=== PATIENT | female | born 1970 | race Caucasian/White ===

== ENCOUNTER 2020-10-15 10:51 | Emergency (ER) | payer OTHER, SELFPAY ==
--- NOTE | ~2020-10-15 | XR_ITS ---
EXAMINATION: 1. RADIOGRAPHS RIGHT ANKLE 2. RADIOGRAPHS RIGHT FOOT CLINICAL INFORMATION: Rule out stress fracture COMPARISON: None TECHNIQUE: 3 views of the right ankle and 3 views of the right foot were obtained. FINDINGS: Visualized portion of the distal tibia and fibula demonstrate no fracture. The ankle mortise is maintained. No focal soft tissue swelling of the ankle. No gross ankle joint effusion. Bones of the midfoot are well aligned. No tarsal, metatarsal or phalangeal fracture. Prominent posterior and plantar calcaneal enthesophytes. XR/XR foot RT 2V IMPRESSION: No fracture of the right ankle or right foot.
--- NOTE | ~2020-10-15 | XR_ITS ---
EXAMINATION: 1. RADIOGRAPHS RIGHT ANKLE 2. RADIOGRAPHS RIGHT FOOT CLINICAL INFORMATION: Rule out stress fracture COMPARISON: None TECHNIQUE: 3 views of the right ankle and 3 views of the right foot were obtained. FINDINGS: Visualized portion of the distal tibia and fibula demonstrate no fracture. The ankle mortise is maintained. No focal soft tissue swelling of the ankle. No gross ankle joint effusion. Bones of the midfoot are well aligned. No tarsal, metatarsal or phalangeal fracture. Prominent posterior and plantar calcaneal enthesophytes. XR/XR ankle RT 2V IMPRESSION: No fracture of the right ankle or right foot.
--- NOTE | ~2020-10-15 | US_ITS ---
EXAMINATION: US VENOUS ULTRASOUND WITH DOPPLER LOWER EXTREMITY, RIGHT CLINICAL INFORMATION: Swelling and pain COMPARISON: None TECHNIQUE: Ultrasound of the deep veins is performed from the hip to the calf with compression sonography and color and pulse Doppler assessment. Spectral analysis with color-flow imaging is performed. FINDINGS: There is normal venous compression and respiratory variation and augmented flow. The visualized common femoral vein, superficial femoral vein, profunda femoral vein, popliteal vein, and the trifurcation region shows no evidence of deep venous thrombosis. There is no significant popliteal fossa cyst. US/US venous duplex LE RT IMPRESSION: No DVT demonstrated in the right lower extremity.
[2020-10-15 11:30] VITALS: BP 135/53; PULSE 86; RESP 16; TEMP 36.6; O2SAT 98; BMI 32.1
--- NOTE | 2020-10-15 11:40 | ED.LOWEXIN ---
HPI - Extremity Injury (Lower) General Chief Complaint: Extremity Injury, Lower Stated Complaint: leg/foot pain Time Seen by Provider: 10/15/20 11:30 Source: patient Mode of arrival: ambulatory Limitations: no limitations History of Present Illness HPI Narrative: 50-year-old female with a past will history of neuropathy who takes Topamax here with complaint of right lower extremity pain and swelling for 2 months. Patient tells me she has pain in the right foot which radiates up the ankle into the calf and knee and is worsened with weight-bearing and activity. No injury or trauma. She tells me she has been taking her medications as prescribed. She does have some paresthesias which she tells me is chronic for her secondary to neuropathy. Tried calling her primary care doctor but they were unable to see her. No warmth or fevers or chills. Patient does tell me that she has some swelling over the last 2 days which is worsened at the end of the day. No recent travel. No estrogen use. No history of DVTs or PEs. No family history of same. No SOB/CP Patient tells me that she has been seen by 2 neurologists and one Orthopedic. She tells me that she had testing by one of the neurologist that showed neuropathy although she does not know the cause. Related Data Previous Rx's Medication Instructions Recorded topiramate 100 mg tablet 100 mg PO BID #180 tab 07/23/20 gabapentin 300 mg capsule 300 mg PO BEDTIME 30 Days #30 cap 08/23/20 Allergies Allergy/AdvReac Type Severity Reaction Status Date / Time No Known Allergies Allergy Verified 08/23/20 16:32 [No Known Allergies*] Review of Systems Review of Systems: Yes all other systems are reviewed and are negative Constitutional: Constitutional: Reports no additional constitutional complaints, Denies body ache(s), Denies chills, Denies fever(s), Denies headache(s) and Denies weakness Eyes: Eyes: Reports no additional eye complaints and Denies change in vision ENT: Reports system reviewed and no additional complaints, except as documented, Denies dizziness, Denies headache(s), Denies nasal congestion, Denies nasal discharge and Denies neck pain Cardiovascular: Cardiovascular: Reports no additional cardiovascular complaints, Denies chest pain, Denies leg edema and Denies dyspnea Respiratory: Respiratory: Reports no additional respiratory complaints, Denies cough and Denies dyspnea Gastrointestinal: Gastrointestinal: Reports no additional gastrointestinal complaints, Denies abdominal pain, Denies diarrhea, Denies nausea and Denies vomiting Genitourinary: Genitourinary: Reports no additional female genitourinary complaints and Denies urinary incontinence Musculoskeletal: Musculoskeletal: Reports no additional musculoskeletal complaints, Denies back pain, Reports arthralgias, Denies joint swelling, Denies limited range of motion, Denies neck pain, Reports numbness and Reports tingling Integumentary/Breasts: Skin/Breast: Reports system reviewed and no additional complaints, except as docu and Denies rash Neurologic: Reports system reviewed and no additional complaints, except as documented, Denies Abnormal speech present, Denies dizziness, Denies headache(s), Reports numbness, Reports tingling and Denies weakness PMFSH Past Medical History Attestation statement: The following information was validated with the patient. Source: old records reviewed and nursing notes reviewed Medical History Neuropathy Surgical History History of surgery on wrist Family History Family History Mother Breast cancer Asthma Father No problems noted. Social History Social History Alcohol intake: current Alcohol intake frequency: a few times a week Alcohol type: beer and wine Smoking Status: Current every day smoker Cigarettes Per Day: 10 Smoked in Last 30 Days: Yes Use of substances other than those prescribed or required for medical reasons: No Advance Directives: No Advance Directives Information Provided: No Physical Exam Vital Signs: Vital Signs: Last Vital Signs Temp 97.8 F 10/15/20 11:30 Pulse 86 10/15/20 11:30 Resp 16 10/15/20 11:30 BP 135/53 L 10/15/20 11:30 Pulse Ox 98 10/15/20 11:30 Body Mass Index 32.1 Const: General: cooperative, healthy appearing, comfortable and no acute distress Orientation/consciousness: patient oriented x3 Limitations: no limitations HENMT: Head: Yes normal to inspection Ears: hearing grossly normal bilaterally General nose exam: Normal external nose present Face and sinus: Yes normal facial exam Mouth: Normal oral and palatal mucosa present Throat: Yes posterior oropharynx normal Eyes: General: appearance normal, both eyes and all related structures Pupils: Equal, round and reactive pupils present Neck: Neck: Yes normal visual inspection Chest: Chest palpation & inspection: normal inspection of the chest Resp: Effort & Inspection: normal respiratory effort Auscultation: clear to auscultation bilaterally Cardio: Rate: regular rate Rhythm: regular rhythm Peripheral pulses: Peripheral pulses 2+ throughout GI: Inspection: Yes normal to inspection Palpation (GI): Soft to palpation and nontender Auscultation: normal bowel sounds Back/Spine/Pelvis: Thoracic/Lumbar Spine: thoracic and lumbar spine normal to inspection Skin: General skin exam: no rashes or lesions noted Neuro: General: patient oriented x3, no focal motor deficits and normal sensation to monofilament Cranial nerves: Yes Equal, round and reactive pupils present Cognition (Neuro): normal cognition Speech: No Abnormal speech present Gait exam (Neuro): Normal gait present Motor exam (neuro): 5/5 motor strength present throughout Extrem: Other: Patient tells me she has tenderness over the entire foot, entire ankle and lower leg and is unable to point to 1 focal area that is painful. She has full range of motion of the foot, ankle, knee. She has no appreciable swelling, warmth, redness. 2+ distal pulses palpated. General: Yes normal to inspection Course Course Course Narrative: 50-year-old female here with right lower extremity pain/swelling with associated paresthesias x2 months. No injury or trauma. Will check x-ays, US. 1415-x-ray show no acute bony abnormality. Ultrasound negative for DVT. Discussed findings with the patient. She tells me that she was most concerned about a DVT. She tells me that she will follow-up with her primary care doctor about her chronic neuropathy. Reviewed worrisome signs and symptoms and when to return to the emergency department. Comfortable discharge home. MDM - Extremity Injury (Lower) MDM Narrative Medical decision making narrative: stress fx, dvt, neuropathy Medical Records Attestation: I reviewed the patient's medical records. Lab Data Attestation: I reviewed the patient's lab results. Imaging Data right foot/ankle xray: Attestation: I personally reviewed and interpreted this imaging study as follows: Radiologist's impression: EXAMINATION: 1. RADIOGRAPHS RIGHT ANKLE 2. RADIOGRAPHS RIGHT FOOT CLINICAL INFORMATION: Rule out stress fracture COMPARISON: None TECHNIQUE: 3 views of the right ankle and 3 views of the right foot were obtained. FINDINGS: Visualized portion of the distal tibia and fibula demonstrate no fracture. The ankle mortise is maintained. No focal soft tissue swelling of the ankle. No gross ankle joint effusion. Bones of the midfoot are well aligned. No tarsal, metatarsal or phalangeal fracture. Prominent posterior and plantar calcaneal enthesophytes. XR/XR ankle RT 2V IMPRESSION: No fracture of the right ankle or right foot. Venous US: Attestation: I personally reviewed and interpreted this imaging study as follows: Radiologist's impression: [address] [id number] ReportSigned Patient: Dee Tyler LMR#: [id number]: 1970Acct:[id number]/Sex: 50 / FADM Date: 10/15/20Loc: [email or web address] Dr: Ordering Physician: ARLEN CARNES NP Date of Service: 10/15/20 Procedure(s): US venous duplex LE RT Accession Number(s): [id number] cc: ARLEN CARNES NP~ EXAMINATION: US VENOUS ULTRASOUND WITH DOPPLER LOWER EXTREMITY, RIGHT CLINICAL INFORMATION: Swelling and pain COMPARISON: None TECHNIQUE: Ultrasound of the deep veins is performed from the hip to the calf with compression sonography and color and pulse Doppler assessment. Spectral analysis with color-flow imaging is performed. FINDINGS: There is normal venous compression and respiratory variation and augmented flow. The visualized common femoral vein, superficial femoral vein, profunda femoral vein, popliteal vein, and the trifurcation region shows no evidence of deep venous thrombosis. There is no significant popliteal fossa cyst. US/US venous duplex LE RT IMPRESSION: No DVT demonstrated in the right lower extremity. Discharge Plan Discharge Clinical Impression: Neuropathy Patient Disposition: Home, Self-Care Instructions: Peripheral Neuropathy (ED) Additional Instructions: Your x-ray showed no acute finding. Your ultrasound was negative for DVT. Prescriptions: No Action topiramate 100 mg tablet 100 mg PO BID Qty: 180 RF: 0 gabapentin 300 mg capsule 300 mg PO BEDTIME 30 Days Qty: 30 RF: 0 Referrals: Po,Aldo Huggins MD [Primary Care Provider] - 10 days Interventions: ED Discharge Assessment Last Done: 10/15/20 13:23 Discharge Date/Time: 10/15/20 13:23
== END 2020-10-15 13:23 | disposition home or self-care (01) ==
PROVIDERS: Emergency Provider Emergency Medicine; PCP Internal Medicine
DX: G62.9 Polyneuropathy, unspecified (principal); R60.0 Localized edema; F17.210 Nicotine dependence, cigarettes, uncomplicated; Z71.6 Tobacco abuse counseling; Z79.899 Other long term (current) drug therapy
CPT/HCPCS: 73600; 73620; 93971; 99283

== ENCOUNTER 2020-11-27 11:57 | Outpatient (REF) | payer OTHER, SELFPAY ==
--- NOTE | ~2020-11-27 | XR_ITS ---
EXAMINATION: RIGHT KNEE. RIGHT HIP. CLINICAL INFORMATION: Soft tissue disorders. Pain. COMPARISON: None TECHNIQUE: Right hip 2 views. Right knee 4 views. FINDINGS: RIGHT KNEE: There is loss of medial and patellofemoral compartment joint space. There is small superior patellar spurring. No bony erosive changes seen. No abnormal suprapatellar joint effusion. Small anterior tibial tubercle spur is noted. The soft tissues appear normal. RIGHT HIP: The joint space is maintained normal. There is small right lateral acetabular spur. No acute fracture or dislocation seen. No bony erosive changes. The soft tissues are normal. XR/XR hip RT min 2V IMPRESSION: Mild degenerative changes medial compartment with minimal anterior superior patellar enthesophyte. No joint effusion or bony erosive changes. Unremarkable right hip exam.
--- NOTE | ~2020-11-27 | XR_ITS ---
EXAMINATION: RIGHT KNEE. RIGHT HIP. CLINICAL INFORMATION: Soft tissue disorders. Pain. COMPARISON: None TECHNIQUE: Right hip 2 views. Right knee 4 views. FINDINGS: RIGHT KNEE: There is loss of medial and patellofemoral compartment joint space. There is small superior patellar spurring. No bony erosive changes seen. No abnormal suprapatellar joint effusion. Small anterior tibial tubercle spur is noted. The soft tissues appear normal. RIGHT HIP: The joint space is maintained normal. There is small right lateral acetabular spur. No acute fracture or dislocation seen. No bony erosive changes. The soft tissues are normal. XR/XR knee RT 4V IMPRESSION: Mild degenerative changes medial compartment with minimal anterior superior patellar enthesophyte. No joint effusion or bony erosive changes. Unremarkable right hip exam.
[2020-11-27 13:59] LABS: MANUAL DIFF FLAG NO
[2020-11-27 14:04] LABS: Basophils Absolute Auto 0.1 X10*3/uL (0.0-0.2); Basophils Percent Auto 0.9 % (0-2); Eosinophils Absolute Auto 0.2 X10*3/uL (0.0-0.4); Eosinophils Percent Auto 2.7 % (0-4); Hematocrit 40.2 % (37-47); Imm Gran Abs Auto 0.03 X10*3/uL (0.00-0.03); Imm Gran Pct Auto 0.3 % (0.0-0.4); Lymphocytes Absolute Auto 2.4 X10*3/uL (1.2-4.9); Lymphocytes Percent Auto 27.4 % (20-40); Mean Corpuscular HGB Conc 32.3 g/dl (31.0-35.0); Mean Corpuscular Hemoglobin 30.1 pg (27.0-33.0); Mean Corpuscular Volume 93.1 fL (80-98); Mean Platelet Volume 10.8 fL (9.4-12.3); Monocytes Absolute Auto 0.4 X10*3/uL (0.1-1.2); Monocytes Percent Auto 4.5 % (2-11); Neutrophils Absolute Auto 5.5 X10*3/uL (2.0-8.3); Neutrophils Percent Auto 64.2 % (45-73); Platelet Count 279 X10*3/uL (160-400); Red Blood Count 4.32 X10*6/uL (4.20-5.50); Red Cell Distribution Width 13.3 % (11.0-16.0); White Blood Count 8.6 X10*3/uL (4.8-10.8)
[2020-11-27 14:18] LABS: D Dimer 206 NG/ML
[2020-11-27 14:25] LABS: B Type Natriuretic Peptide 13 pg/mL (<100)
[2020-11-27 14:36] LABS: Anion Gap 13 (12-20); Blood Urea Nitrogen 8 mg/dL (9-16); C Reactive Protein 0.19 mg/dL (< or = 0.50); Calcium 9.4 mg/dL (8.4-10.2); Carbon Dioxide 29 mmol/L (22-29); Chloride 107 mmol/L (96-108); Estimated Glomerular Filt Rate > 60; Glucose Random 87 mg/dL (60-115); Sodium 145 mmol/L (135-145)
[2020-11-27 14:43] LABS: Erythrocyte Sedimentation Rate 7 MM/HR (0-20)
[2020-11-27 15:36] LABS: Folate 8.1 ng/mL (> or = 4.0); Vitamin B12 989 pg/mL (200-900)
[2020-11-28 08:41] LABS: Lyme Abs Screen <0.90 index
== END 2020-11-27 11:58 | disposition home or self-care (01) ==
LOC: HO.HMGCLDS 11:57
PROVIDERS: PCP Internal Medicine; Visit Provider Nurse Practitioner Family
DX: M79.89 Other specified soft tissue disorders (principal)
CPT/HCPCS: 36415; 73502; 73564; 80048; 82607; 82746; 83880; 85025; 85379; 85652; 86140; 86617; 86618

== ENCOUNTER → 2021-02-03 10:32 | Outpatient (BNVA) | payer OTHER, SELFPAY | PROVIDERS: Visit Provider Orthopaedic Surgery ==

== ENCOUNTER 2021-02-10 19:10 | Outpatient (REF) | payer OTHER, SELFPAY ==
--- NOTE | ~2021-02-10 | MR_ITS ---
EXAMINATION: MR KNEE WITHOUT CONTRAST, RIGHT CLINICAL INFORMATION: Unspecified internal derangement of right knee. Patient reports right knee pain for 8 months with no recent injury or previous surgery. COMPARISON: XR right knee 11/27/2020. MR right knee 12/12/2013. TECHNIQUE: MRI of the knee without contrast was performed using routine sequences on a high-field scanner. FINDINGS: MENISCI: Medial Meniscus: There is degeneration and eygvvxcp-bi-qkny-grade partial tearing of the posterior root of the medial meniscus. There is minimal medial extrusion at the junction of the body and anterior horn. There is some thinning of the free edge of the posterior horn. On the coronal images (series 5, image 12-13), there is a suggestion of a shallow inner margin undersurface horizontal tear as well as a small free edge tear. Lateral Meniscus: Intact LIGAMENTS: Cruciate: Intact Collateral: Intact EXTENSOR MECHANISM: Intact ARTICULAR CARTILAGE/BONE: Patellofemoral Compartment: There is focal cartilage surface irregularity and thinning at the junction of the apex and medial facet of the patella. There is patchy cartilage irregularity and thinning in the femoral trochlea ranging from ajlv-pj-xufr-grade, most prominent at the junction of the central and medial femoral trochlea. There is minor underlying bone marrow edema. There are tiny marginal osteophytes. Medial Compartment: There is fjbt-lk-sjtenpbi cartilage irregularity and thinning in the weightbearing medial compartment. There is patchy underlying bone marrow edema, most prominent in the anterior aspect of the medial tibial plateau. There are tiny marginal osteophytes. Lateral Compartment: Normal JOINT FLUID AND BURSAE: Xkfps-uv-wvszwead joint effusion and small Man's cyst. MR/MR knee RT wo con IMPRESSION: 1. Degeneration and fmkjlxnb-mb-fadd-grade partial tearing of the posterior root of the medial meniscus. Focal inner margin undersurface and free-edge tear of the posterior horn. 2. Mild arthrosis in the apex and adjacent medial facet of the patella. Overall moderate arthrosis in the femoral trochlea. 3. Efry-xv-jctlluwy arthrosis in the weightbearing medial compartment. 4. Oviam-ap-lxguwozu joint effusion and small Man's cyst.
== END 2021-02-10 19:11 | disposition home or self-care (01) ==
LOC: HO.MRI 19:10
PROVIDERS: Visit Provider Orthopaedic Surgery
DX: M23.91 Unspecified internal derangement of right knee (principal)
CPT/HCPCS: 73721

== ENCOUNTER → 2021-02-13 12:38 | Outpatient (BNVA) | payer OTHER, SELFPAY | PROVIDERS: PCP Internal Medicine; Visit Provider Orthopaedic Surgery | DX: M17.31 Unilateral post-traumatic osteoarthritis, right knee (principal); M84.40XA Pathological fracture, unspecified site, initial encounter for fracture | CPT/HCPCS: 20610; J1100 ==

== ENCOUNTER → 2021-03-13 12:59 | Outpatient (BNVA) | payer OTHER, SELFPAY | PROVIDERS: PCP Internal Medicine; Visit Provider Orthopaedic Surgery ==

== ENCOUNTER 2021-04-18 14:30 | Outpatient (REF) | payer OTHER, SELFPAY ==
--- NOTE | ~2021-04-18 | MM_ITS ---
EXAMINATION: MM SCREENING DIGITAL BREAST TOMOSYNTHESIS, BILATERAL CLINICAL INFORMATION: Screening. Asymptomatic. The lifetime risk of breast cancer based on the Tyrer-Cuzick Model is 16%. COMPARISON: Mammography: 12/14/2018, 02/24/2017, 01/10/2016, 08/06/2014 TECHNIQUE: Digital breast tomosynthesis is performed in both the craniocaudal and mediolateral oblique views along with computer-aided detection (CAD). Synthesized 2D images are generated from the tomosynthesis. FINDINGS: There are scattered areas of fibroglandular density (ACR BI-RADS breast composition Category b). There are no significant masses, abnormal calcifications, or other abnormalities. Parenchymal pattern is similar to prior exams. No developing density. Axillary nodes without significant change. Skin contours are smooth. MM/MM tomosynthesis screening BI IMPRESSION: No mammographic evidence of malignancy. ASSESSMENT: BI-RADS 1: Negative RECOMMENDATION: Routine annual mammography screening. This patient's information was entered into a reminder system with a target due date for their next mammogram.
== END 2021-04-18 14:31 | disposition home or self-care (01) ==
LOC: HO.MAMMO 14:30
PROVIDERS: PCP Internal Medicine; Visit Provider Internal Medicine
DX: Z12.31 Encounter for screening mammogram for malignant neoplasm of breast (principal)
CPT/HCPCS: 77063; 77067

== ENCOUNTER 2021-05-19 15:10 | Emergency (ER) | payer OTHER, SELFPAY ==
--- NOTE | 2021-05-19 | ECG_ITS ---
Test Reason : abdominal pain Blood Pressure : / mmHG Vent. Rate : 081 BPM Atrial Rate : 081 BPM P-R Int : 168 ms QRS Dur : 084 ms QT Int : 380 ms P-R-T Axes : 072 040 062 degrees QTc Int : 441 ms Sinus rhythm with occasional Premature ventricular complexes Borderline ECG No previous ECGs available Referred By: Generic ED Physician Electronically Signed By:DIANA CHAN MD
--- NOTE | ~2021-05-19 | CT_ITS ---
EXAMINATION: CT ABDOMEN AND PELVIS WITHOUT CONTRAST CLINICAL INFORMATION: Left flank and left lower quadrant pain. COMPARISON: No similar priors. TECHNIQUE: Multidetector volumetric imaging was performed from the superior aspect of the liver through the pubic symphysis. Sagittal and coronal reformatted images were obtained on the technologist's workstation. This CT examination was performed using dose optimization techniques as appropriate, variously including the following: *Automated exposure control *Adjustment of mA and/or kV according to patient size (this includes techniques or standardized protocols for targeted exams where dose is matched to indication/reason for exam; i.e. extremities or head) *Use of iterative reconstruction technique DLP: 702 mGy-cm FINDINGS: LUNG BASES: Subsegmental atelectasis and/or parenchymal scarring in the right middle lobe, lingula and lung bases. No focal consolidation or pleural effusion. LIVER, GALLBLADDER, AND BILIARY TREE: The liver is normal in size, shape, and attenuation. No focal hepatic lesion or biliary ductal dilatation is present. The gallbladder is unremarkable with no evidence of radiopaque gallstones, gallbladder wall thickening, or obvious pericholecystic inflammatory changes. PANCREAS: Unremarkable. SPLEEN: Unremarkable. ADRENAL GLANDS: Unremarkable. KIDNEYS AND URETERS: The kidneys are normal in size, shape, and attenuation. No hydronephrosis, hydroureter, or calculi seen. No perinephric stranding. BLADDER: Unremarkable. GASTROINTESTINAL TRACT: The stomach and the small bowel are nondilated. Normal appendix. The distal colon is under distended, limiting assessment of wall thickening. There is fat stranding adjacent to the descending colon where there are a few diverticuli, likely related with mild acute diverticulitis. There is no bowel obstruction. There is no free air or drainable collection. ABDOMINAL WALL: Small fat-containing umbilical hernia. LYMPH NODES: No lymphadenopathy by size criteria. VASCULAR: Scattered atherosclerotic disease. The abdominal aorta is of normal diameter. PELVIC VISCERA: Calcifications in the right adnexa on images 66 and 67 of series 3 and in the right wall of the cervix on image 72 of series 3 of uncertain clinical significance. A few pelvic phleboliths are identified. OSSEOUS STRUCTURES: No acute or aggressive osseous abnormalities. Multilevel thoracolumbar spondylosis with prominent anterior osteophytes at L3-L4 and L4-L5. CT/CT abdomen pelvis wo con IMPRESSION: Mild pericolic inflammatory changes around the descending colon, raising the possibility of acute diverticulitis and less likely colitis given their association with diverticula and short segment of involvement. No evidence of perforation. No drainable collection. Calcific bodies in the right adnexa of uncertain significance. If indicated, consider further evaluation with a nonemergent pelvic ultrasound.
[2021-05-19 16:21] VITALS: BP 123/91; PULSE 80; RESP 18; TEMP 36.9; O2SAT 97; BMI 35.5
[2021-05-19 17:54] LABS: MANUAL DIFF FLAG NO
[2021-05-19 17:57] LABS: Basophils Absolute Auto 0.1 X10*3/uL (0.0-0.2); Basophils Percent Auto 0.9 % (0-2); Eosinophils Absolute Auto 0.3 X10*3/uL (0.0-0.4); Eosinophils Percent Auto 3.1 % (0-4); Hematocrit 44.2 % (37.0-47.0); Hemoglobin 14.4 g/dl (12.0-16.0); Imm Gran Abs Auto 0.02 X10*3/uL (0.00-0.03); Imm Gran Pct Auto 0.2 % (0.0-0.4); Lymphocytes Absolute Auto 3.1 X10*3/uL (1.2-4.9); Lymphocytes Percent Auto 34.9 % (20-40); Mean Corpuscular HGB Conc 32.6 g/dl (31.0-35.0); Mean Corpuscular Hemoglobin 30.1 pg (27.0-33.0); Mean Corpuscular Volume 92.3 fL (80.0-98.0); Mean Platelet Volume 10.3 fL (9.4-12.3); Monocytes Absolute Auto 0.6 X10*3/uL (0.1-1.2); Monocytes Percent Auto 6.8 % (2-11); Neutrophils Absolute Auto 4.8 x10*3/uL (2.0-8.3); Neutrophils Percent Auto 54.1 % (45-73); Platelet Count 304 X10*3/uL (160-400); Red Blood Count 4.79 X10*6/uL (4.20-5.50); Red Cell Distribution Width 13.2 % (11.0-16.0); White Blood Count 8.9 X10*3/uL (4.8-10.8)
[2021-05-19 18:20] LABS: Lipase 16 U/L (8-78)
[2021-05-19 18:21] LABS: Alanine Aminotransferase 17 U/L (0-31); Albumin Level 4.4 g/dL (3.5-5.0); Alkaline Phosphatase 120 U/L (39-117); Anion Gap 11 (12-20); Aspartate Amino Transferase 18 U/L (5-31); Bilirubin Total 0.4 mg/dL (0.0-1.0); Blood Urea Nitrogen 6 mg/dL (9-16); Calcium 9.5 mg/dL (8.4-10.2); Carbon Dioxide 30 mmol/L (22-29); Chloride 107 mmol/L (96-108); Creatinine Clr Calc Pharmacy 92.9; Estimated Glomerular Filt Rate > 60; Glucose Random 81 mg/dL (60-115); Potassium 4.4 mmol/L (3.3-5.1); Sodium 144 mmol/L (135-145); Total Protein 6.8 g/dL (6.5-8.0)
[2021-05-19 18:21] LABS: Appearance Urine HAZY; Color Urine STRAW; Glucose Urine UA NEG (NEG); Leukocyte Esterase Urine TRACE (NEG); Nitrite Urine NEG (NEG); Specific Gravity - Urine <= 1.005 (1.005-1.025); UACC Culture Trigger YES; Urine Blood NEG (NEG); Urine Ketones NEG (NEG); Urine Protein NEG (NEG-TRACE)
[2021-05-19 19:19] LABS: Bacteria Urine 1+ /LPF; RBC Urine 0-2 /HPF (0); Squamous Epithelial Cell Urine 2+ /LPF
--- NOTE | 2021-05-19 20:24 | ED_ITS ---
HPI - Abdominal Pain General Chief Complaint: Abdominal Pain Stated Complaint: abd pain Time Seen by Provider: 05/19/21 20:23 Source: patient Mode of arrival: ambulatory Limitations: no limitations History of Present Illness HPI narrative: Patient with no significant past medical history complaining of pain in the left flank area radiating to left lower abdomen for last 1 week off and on no relation with positional movement no nausea no vomiting no diarrhea no blood in the urine no fever or chills patient never had similar pain in the past no history of kidney stones Related Data Home Medications Medication Instructions Recorded Confirmed ibuprofen 200 mg tablet (Advil) 200 mg PO Q6H PRN 03/13/21 03/13/21 Previous Rx's Medication Instructions Recorded ciprofloxacin HCl 500 mg tablet 500 mg PO BID #20 tab 05/19/21 (Cipro) metronidazole 500 mg tablet 500 mg PO BID 10 Days #20 tab 05/19/21 Allergies Allergy/AdvReac Type Severity Reaction Status Date / Time No Known Allergies Allergy Verified 05/19/21 16:27 [No Known Allergies*] Review of Systems Review of Systems Yes all other systems are reviewed and are negative Physical Exam Vital Signs: Vital Signs: Last Vital Signs Temp 98.4 F 05/19/21 16:21 Pulse 80 05/19/21 16:21 Resp 18 05/19/21 16:21 BP 123/91 H 05/19/21 16:21 Pulse Ox 97 05/19/21 16:21 Body Mass Index 35.5 Appearance: Alert. Oriented X3. No acute distress. Eyes: No pallor or icterus ENT: Pharynx normal. Oral Mucosa moist Neck: Normal inspection. Neck supple. CVS: Normal heart rate and rhythm. Pulses normal. Respiratory: No respiratory distress. Equal air entry bilateral, no wheezing/rales/rhonchi Abdomen: Soft , deep tenderness left lower quadrant no rebound tenderness or guarding Bowel sounds are present, no mass palpable, mild left CVA tenderness Skin: Skin warm and dry. Normal skin color. Normal skin turgor. Extremities: No lower extremity edema. No calf tenderness Neuro: Oriented X 3 MDM - Abdominal Pain MDM Narrative Medical decision making narrative: Patient with uncomplicated diverticulitis with normal WBC count urine negative no kidney stone with discharge patient home on p.o. antibiotics Cipro and Flagyl Lab Data Attestation: I reviewed the patient's lab results. Result diagrams: 05/19/21 17:29 05/19/21 17:29 Labs: Lab Results 05/19/21 05/19/21 05/19/21 Range/Units 17:29 17:29 17:29 WBC 8.9 (4.8-10.8) X10*3/uL RBC 4.79 (4.20-5.50) X10*6/uL Hgb 14.4 (12.0-16.0) g/dl Hct 44.2 (37.0-47.0) % MCV 92.3 (80.0-98.0) fL MCH 30.1 (27.0-33.0) pg MCHC 32.6 (31.0-35.0) g/dl RDW 13.2 (11.0-16.0) % Plt Count 304 (160-400) X10*3/uL MPV 10.3 (9.4-12.3) fL Immature Gran % (Auto) 0.2 (0.0-0.4) % Neut % (Auto) 54.1 (45-73) % Lymph % (Auto) 34.9 (20-40) % [place] % (Auto) 6.8 (2-11) % Eos % (Auto) 3.1 (0-4) % Baso % (Auto) 0.9 (0-2) % Lymph # (Auto) 3.1 (1.2-4.9) X10*3/uL [place] # (Auto) 0.6 (0.1-1.2) X10*3/uL Eos # (Auto) 0.3 (0.0-0.4) X10*3/uL Baso # (Auto) 0.1 (0.0-0.2) X10*3/uL Abs Immat Gran (auto) 0.02 (0.00-0.03) X10*3/uL Absolute Neuts (auto) 4.8 (2.0-8.3) x10*3/uL Absolute Nucleated RBC 0.000 (0.0-0.012) X10*3/uL Nucleated RBC % (auto) 0.0 (0.0-0.2) /100WBC Sodium 144 (135-145) mmol/L Potassium 4.4 (3.3-5.1) mmol/L Chloride 107 (96-108) mmol/L Carbon Dioxide 30 H (22-29) mmol/L Anion Gap 11 L (12-20) BUN 6 L (9-16) mg/dL Creatinine 0.71 (0.5-1.4) mg/dL Estim Creat Clear Calc 92.9 Estimated GFR > 60 Random Glucose 81 (60-115) mg/dL Calcium 9.5 (8.4-10.2) mg/dL Total Bilirubin 0.4 (0.0-1.0) mg/dL AST 18 (5-31) U/L ALT 17 (0-31) U/L Alkaline Phosphatase 120 H (39-117) U/L Total Protein 6.8 (6.5-8.0) g/dL Albumin 4.4 (3.5-5.0) g/dL Lipase 16 (8-78) U/L Urine Color Urine Appearance Urine pH (5.0-8.0) Ur Specific [place] (1.005-1.025) Urine Protein (NEG-TRACE) MG/DL Urine Glucose (UA) (NEG) MG/DL Urine Ketones (NEG) MG/DL Urine Blood (NEG) Urine Nitrite (NEG) Ur Leukocyte Esterase (NEG) Urine RBC (0) /HPF Urine WBC (0-4) /HPF Ur Squamous Epith Cells /LPF Urine Bacteria /LPF 05/19/21 Range/Units 17:33 WBC (4.8-10.8) X10*3/uL RBC (4.20-5.50) X10*6/uL Hgb (12.0-16.0) g/dl Hct (37.0-47.0) % MCV (80.0-98.0) fL MCH (27.0-33.0) pg MCHC (31.0-35.0) g/dl RDW (11.0-16.0) % Plt Count (160-400) X10*3/uL MPV (9.4-12.3) fL Immature Gran % (Auto) (0.0-0.4) % Neut % (Auto) (45-73) % Lymph % (Auto) (20-40) % [place] % (Auto) (2-11) % Eos % (Auto) (0-4) % Baso % (Auto) (0-2) % Lymph # (Auto) (1.2-4.9) X10*3/uL [place] # (Auto) (0.1-1.2) X10*3/uL Eos # (Auto) (0.0-0.4) X10*3/uL Baso # (Auto) (0.0-0.2) X10*3/uL Abs Immat Gran (auto) (0.00-0.03) X10*3/uL Absolute Neuts (auto) (2.0-8.3) x10*3/uL Absolute Nucleated RBC (0.0-0.012) X10*3/uL Nucleated RBC % (auto) (0.0-0.2) /100WBC Sodium (135-145) mmol/L Potassium (3.3-5.1) mmol/L Chloride (96-108) mmol/L Carbon Dioxide (22-29) mmol/L Anion Gap (12-20) BUN (9-16) mg/dL Creatinine (0.5-1.4) mg/dL Estim Creat Clear Calc Estimated GFR Random Glucose (60-115) mg/dL Calcium (8.4-10.2) mg/dL Total Bilirubin (0.0-1.0) mg/dL AST (5-31) U/L ALT (0-31) U/L Alkaline Phosphatase (39-117) U/L Total Protein (6.5-8.0) g/dL Albumin (3.5-5.0) g/dL Lipase (8-78) U/L Urine Color STRAW Urine Appearance HAZY Urine pH 6.0 (5.0-8.0) Ur Specific [place] <= 1.005 (1.005-1.025) Urine Protein NEG (NEG-TRACE) MG/DL Urine Glucose (UA) NEG (NEG) MG/DL Urine Ketones NEG (NEG) MG/DL Urine Blood NEG (NEG) Urine Nitrite NEG (NEG) Ur Leukocyte Esterase TRACE H (NEG) Urine RBC 0-2 (0) /HPF Urine WBC 1-4 (0-4) /HPF Ur Squamous Epith Cells 2+ /LPF Urine Bacteria 1+ /LPF Discharge Plan Discharge Clinical Impression: Acute diverticulitis Patient Disposition: [facility] Instructions: Diverticulitis (ED) Additional Instructions: Have clear liquids advanced as tolerated Take antibiotic as prescribed Report to the ER if increased pain/fever/vomiting Prescriptions: New ciprofloxacin HCl [Cipro] 500 mg tablet 500 mg PO BID Qty: 20 RF: 0 metronidazole 500 mg tablet 500 mg PO BID 10 Days Qty: 20 RF: 0 No Action ibuprofen [Advil] 200 mg tablet 200 mg PO Q6H PRNRF: 0 Interventions: ED Discharge Assessment Last Done: 05/19/21 22:31 Discharge Date/Time: 05/19/21 22:31 [facility] Past Medical History Medical History Clostridium difficile diarrhea Degenerative disc disease at L5-S1 level Neuropathy Obesity (BMI 30-39.9) Tinnitus Tobacco abuse Vitamin D deficiency Surgical History H/O hand surgery Family History Family History Mother Breast cancer Asthma Father No problems noted. Maternal Aunt Colon cancer Brother Schizophrenia Social History Social History Housing: House Alcohol intake: current Alcohol intake frequency: a few times a week Alcohol type: beer and wine Patient Tobacco Use Status: Current everyday Tobacco user Tobacco use type: Cigarette Cigarette Packs Per Day: 0.5 Cigarettes Per Day: 10 Years Smoked: not ready to stop 03/2021 e-Cigarette/Vaping Use: Never Used Second Hand Smoke Exposure: Yes Advance Directives: No Patient : No service: No Current occupational status: employed Current occupation: right handed[employer]
--- NOTE | 2021-05-19 21:02 | PC.NURSE ---
pt in no obvious distress. pt has tender l side abd with no distention or discoloration. no abd guarding or facial grimace. pt refuses VS at this time. awaiting ct report. pt also refuses analgesia or anti emetic at this time.
--- NOTE | 2021-05-19 22:28 | PC.NURSE ---
pt was made aware of her diagnosis by md lewis, pt was not in tx area or mwr at time of discharge
== END 2021-05-19 22:31 | disposition left against medical advice (07) ==
PROVIDERS: Emergency Provider Internal Medicine; PCP Internal Medicine
DX: K57.32 Diverticulitis of large intestine without perforation or abscess without bleeding (principal); R10.32 Left lower quadrant pain; Z79.899 Other long term (current) drug therapy
CPT/HCPCS: 36415; 74176; 80053; 81001; 83690; 85025; 87086; 93005; 99283; 99284

== ENCOUNTER 2021-09-30 13:59 | Outpatient (REF) | payer OTHER, SELFPAY ==
[2021-09-30 14:11] LABS: MANUAL DIFF FLAG NO
[2021-09-30 14:24] LABS: Basophils Absolute Auto 0.1 X10*3/uL (0.0-0.2); Basophils Percent Auto 1.1 % (0-2); Eosinophils Absolute Auto 0.2 X10*3/uL (0.0-0.4); Eosinophils Percent Auto 2.3 % (0-4); Hematocrit 46.6 % (37.0-47.0); Hemoglobin 15.3 g/dl (12.0-16.0); Imm Gran Abs Auto 0.02 X10*3/uL (0.00-0.03); Imm Gran Pct Auto 0.3 % (0.0-0.4); Lymphocytes Absolute Auto 2.6 X10*3/uL (1.2-4.9); Lymphocytes Percent Auto 36.7 % (20-40); Mean Corpuscular HGB Conc 32.8 g/dl (31.0-35.0); Mean Corpuscular Hemoglobin 30.4 pg (27.0-33.0); Mean Corpuscular Volume 92.5 fL (80.0-98.0); Monocytes Absolute Auto 0.3 X10*3/uL (0.1-1.2); Monocytes Percent Auto 4.8 % (2-11); Neutrophils Absolute Auto 3.9 x10*3/uL (2.0-8.3); Neutrophils Percent Auto 54.8 % (45-73); Platelet Count 260 X10*3/uL (160-400); Red Blood Count 5.04 X10*6/uL (4.20-5.50); Red Cell Distribution Width 13.6 % (11.0-16.0)
[2021-09-30 14:58] LABS: Alanine Aminotransferase 15 U/L (0-31); Albumin Level 4.4 g/dL (3.5-5.0); Alkaline Phosphatase 122 U/L (39-117); Anion Gap 13 (12-20); Aspartate Amino Transferase 19 U/L (5-31); Bilirubin Total 0.6 mg/dL (0.0-1.0); Blood Urea Nitrogen 6 mg/dL (9-16); C Reactive Protein 0.25 mg/dL (< or = 0.50); Calcium 9.8 mg/dL (8.4-10.2); Carbon Dioxide 30 mmol/L (22-29); Chloride 104 mmol/L (96-108); Estimated Glomerular Filt Rate > 60; Glucose Random 99 mg/dL (60-115); Lipase 18 U/L (8-78); Potassium 4.4 mmol/L (3.3-5.1); Sodium 143 mmol/L (135-145)
== END 2021-09-30 14:00 | disposition home or self-care (01) ==
LOC: HO.LAB 13:59
PROVIDERS: PCP Internal Medicine; Visit Provider Nurse Practitioner Family
DX: R10.9 Unspecified abdominal pain (principal); I10 Essential (primary) hypertension; M54.9 Dorsalgia, unspecified
CPT/HCPCS: 36415; 80053; 83690; 85025; 86140; 87086

== ENCOUNTER 2021-10-12 05:45 | Emergency (ER) | payer OTHER, SELFPAY ==
--- NOTE | ~2021-10-12 | CT_ITS ---
EXAMINATION: CT ABDOMEN AND PELVIS WITHOUT CONTRAST CLINICAL INFORMATION: Left-sided abdominal pain. History of diverticulitis. COMPARISON: CT abdomen pelvis 05/19/2021 TECHNIQUE: Multidetector volumetric imaging was performed from the superior aspect of the liver through the pubic symphysis. Sagittal and coronal reformatted images were obtained on the technologist's workstation. This CT examination was performed using dose optimization techniques as appropriate, variously including the following: *Automated exposure control *Adjustment of mA and/or kV according to patient size (this includes techniques or standardized protocols for targeted exams where dose is matched to indication/reason for exam; i.e. extremities or head) *Use of iterative reconstruction technique DLP: 739 mGy-cm FINDINGS: Evaluation of visualized lung bases is suboptimal given respiratory motion artifact, however, no gross lobar consolidation is appreciated. The liver demonstrates normal size, contour and attenuation. The gallbladder is normal in appearance. The pancreas, spleen and adrenal glands are unremarkable. Symmetrically sized kidneys. No renal calculi or hydronephrosis bilaterally. Normal caliber loops of small and large bowel. Normal appendix. Mild colonic diverticulosis. There is a subtle area of mesenteric stranding abutting the descending colon, in a similar location to which was visualized and May 2021. No intra-abdominal abscess identified. Normal caliber abdominal aorta. No gross retroperitoneal lymphadenopathy. Tiny fat-containing umbilical hernia. The bladder is normal in size. Unremarkable CT appearance of the uterus. Similar small calcifications along the right cervix/right adnexal region, nonspecific. No gross free pelvic fluid. No inguinal lymphadenopathy. Mild to moderate degenerative changes of the spine. CT/CT abdomen pelvis wo con IMPRESSION: -Mild colonic diverticulosis with a subtle area of mesenteric stranding again identified abutting the descending colon. This may represent chronic changes, however, in this setting of left-sided abdominal pain, very mild active diverticulitis is also within the differential. Clinical correlation is recommended. Fleischner guidelines were followed.
[2021-10-12 05:57] VITALS: BP 145/83; PULSE 93; RESP 15; TEMP 36.1; O2SAT 94; BMI 34.7
--- NOTE | 2021-10-12 06:49 | ED_ITS ---
HPI - Abdominal Pain General Chief Complaint: Abdominal Pain Stated Complaint: Abd pain Time Seen by Provider: 10/12/21 06:48 Source: patient Mode of arrival: ambulatory Limitations: no limitations History of Present Illness HPI narrative: 51 years old female came in for evaluation of abdominal pain. Abdominal pain started 10 days ago was seen and evaluated by her PCP, patient had a history of diverticulitis and symptoms was mimic her presentation with diverticulitis patient was treated with Cipro and Flagyl for 10 days, was a partial improvement, patient woke up last night with severe diffuse abdominal pain that is constant, severe 7/10, described as diffuse dull aching pain, associated with nausea but no vomiting, no bowel movement for the past 2 days, no fever or chills. No relieving factor, no aggravating factor. No bloody urine, no dysuria, no frequency urination. No vaginal discharge or bleeding. Never had history of intra-abdominal surgery. Related Data Home Medications Medication Instructions Recorded Confirmed ibuprofen 200 mg tablet (Advil) 200 mg PO Q6H PRN 03/13/21 09/30/21 Previous Rx's Medication Instructions Recorded ciprofloxacin HCl 500 mg tablet 500 mg PO BID #20 tab 09/30/21 metronidazole 500 mg tablet 500 mg PO BID 10 Days #20 tab 09/30/21 cyclobenzaprine 5 mg tablet 5 mg PO BEDTIME PRN #10 tab 10/03/21 nystatin 100,000 unit/mL oral 4 ml PO QID 7 Days #112 ml 10/08/21 suspension Allergies Allergy/AdvReac Type Severity Reaction Status Date / Time No Known Allergies Allergy Verified 09/30/21 13:14 [No Known Allergies*] Review of Systems Review of Systems All other systems are reviewed and are negative Constitutional: Reports as per HPI and Reports no additional constitutional complaints Eyes: Reports as per HPI and Reports no additional eye complaints Reports system reviewed and no additional complaints, except as documented Cardiovascular: Reports as per HPI and Reports no additional cardiovascular complaints Respiratory: Reports as per HPI and Reports no additional respiratory complaints Gastrointestinal: Reports as per HPI and Reports no additional gastrointestinal complaints Genitourinary: Reports no additional female genitourinary complaints Musculoskeletal: Reports no additional musculoskeletal complaints Skin/Breast: Reports system reviewed and no additional complaints, except as docu Psychiatric: Reports no additional psychiatric complaints Endocrine: Reports no additional endocrine complaints Hematologic/Lymphatic: Reports no additional hematologic/lymphatic complaints Allergic/Immunologic: Reports no additional allergic/immunologic complaints Reports system reviewed and no additional complaints, except as documented and Reports Abnormal speech present [facility] Past Medical History Medical History Clostridium difficile diarrhea Degenerative disc disease at L5-S1 level Neuropathy Obesity (BMI 30-39.9) Tinnitus Tobacco abuse Vitamin D deficiency Surgical History H/O hand surgery Family History Family History Mother Breast cancer Asthma Father No problems noted. Maternal Aunt Colon cancer Brother Schizophrenia Social History Social History Housing: House Alcohol intake: current Alcohol intake frequency: a few times a week Alcohol type: beer and wine Patient Tobacco Use Status: Current everyday Tobacco user Tobacco use type: Cigarette Cigarette Packs Per Day: 0.5 Cigarettes Per Day: 10 Years Smoked: not ready to stop 03/2021 e-Cigarette/Vaping Use: Never Used Second Hand Smoke Exposure: Yes Advance Directives: No Patient : No service: No Current occupational status: employed Current occupation: right handed/[employer] Home Cognitive needs: No Hearing needs: No Vision needs: Yes (glasses) Physical Exam ED Vital Signs: Vital Signs - 24 hr 10/12/21 05:57 Temperature 97 F Pulse Rate 93 Respiratory Rate 15 Blood Pressure 145/83 H Pulse Oximetry 94 BMI result Body Mass Index 34.7 Vital signs have been reviewed as appeared to be correct. Blood pressure normal. Heart rate normal. Respiration rate normal. Temperature normal. Oxygen saturation normal. Appearance: Alert. Oriented X3. No acute distress. Head: Normal external exam. Normocephalic. Atraumatic. No Alejandra signs noted. No raccoon eyes noted Eyes: PERRLA. EOMI. Conjunctiva and sclera normal. Eyelids normal. ENT: TM's Normal. Pharynx normal. Uvula midline. Moist mucous membranes. No trismus noted. No drooling noted. No muffled voice noted. Neck: Normal inspection. Neck supple. FROM. No adenopathy. Thyroid Normal. No meningeal signs. No neck mass noted. CVS: Normal heart rate and rhythm. Heart sound normal. No murmurs noted. Pulses normal throughout. Respiratory: No respiratory distress. Painless inspiration. Breath sounds dragan l. No wheezes/rales/rhonchi noted. Chest nontender. No accessory muscle usage noted or decreased air movement noted. Abdomen: Soft, mild diffuse abdominal tenderness, no guarding, no rebound tenderness, pain is more focal to the left lower quadrant area with no sign of peritoneal irritation. Bowel sounds normal in all 4 quadrants. No distention noted. No organomegaly noted. No visible injury noted. Back: No CVA tenderness. Full range of motion noted. Skin: Skin warm and dry. Normal skin color. Normal skin turgor. No rashes/lesions/lacerations noted. Extremities: No lower extremity edema. Extremities exhibit normal range of motion. Extremities nontender. Neuro: Oriented X 3. Cranial nerve exam: II-XII are grossly intact No motor deficit. No sensory deficit. Reflexes normal. Course Course Course Narrative: Assessment and plan. 51-year-old female came in with mild diffuse abdominal pain, normal white blood cells count, unremarkable metabolic panel, CT of the abdomen pelvis showed no acute pathology except subtle stranding that might be a very mild diverticulitis, patient is finishing a course of double antibiotic of Cipro/Flagyl. Patient was instructed for NSAIDs, restrict to diverticular food diet, follow-up with GI as an outpatient (patient never had colonoscopy in the past). MDM - Abdominal Pain Lab Data Attestation: I reviewed the patient's lab results. Result diagrams: 10/12/21 07:18 10/12/21 07:18 Labs: Lab Results 10/12/21 10/12/21 10/12/21 Range/Units 07:18 07:18 07:18 WBC 7.9 (4.8-10.8) X10*3/uL RBC 4.77 (4.20-5.50) X10*6/uL Hgb 14.6 (12.0-16.0) g/dl Hct 42.9 (37.0-47.0) % MCV 89.9 (80.0-98.0) fL MCH 30.6 (27.0-33.0) pg MCHC 34.0 (31.0-35.0) g/dl RDW 13.4 (11.0-16.0) % Plt Count 283 (160-400) X10*3/uL MPV 9.9 (9.4-12.3) fL Immature Gran % (Auto) 0.3 (0.0-0.4) % Neut % (Auto) 68.8 (45-73) % Lymph % (Auto) 22.7 (20-40) % Ocean % (Auto) 7.0 (2-11) % Eos % (Auto) 0.8 (0-4) % Baso % (Auto) 0.4 (0-2) % Lymph # (Auto) 1.8 (1.2-4.9) X10*3/uL Ocean # (Auto) 0.6 (0.1-1.2) X10*3/uL Eos # (Auto) 0.1 (0.0-0.4) X10*3/uL Baso # (Auto) 0.0 (0.0-0.2) X10*3/uL Abs Immat Gran (auto) 0.02 (0.00-0.03) X10*3/uL Absolute Neuts (auto) 5.4 (2.0-8.3) x10*3/uL Absolute Nucleated RBC 0.000 (0.0-0.012) X10*3/uL Nucleated RBC % (auto) 0.0 (0.0-0.2) /100WBC Sodium 139 (135-145) mmol/L Potassium 3.8 (3.3-5.1) mmol/L Chloride 106 (96-108) mmol/L Carbon Dioxide 26 (22-29) mmol/L Anion Gap 11 L (12-20) BUN 6 L (9-16) mg/dL Creatinine 0.65 (0.5-1.4) mg/dL Estim Creat Clear Calc 95.2 Estimated GFR > 60 Random Glucose 103 (60-115) mg/dL Calcium 9.4 (8.4-10.2) mg/dL Total Bilirubin 0.6 (0.0-1.0) mg/dL Direct Bilirubin 0.3 (0.0-0.5) mg/dL AST 17 (5-31) U/L ALT 27 (0-31) U/L Alkaline Phosphatase 99 (39-117) U/L Troponin I High Sens < 3.5 (<3.5-17.0) ng/L Total Protein 6.4 L (6.5-8.0) g/dL Albumin 4.1 (3.5-5.0) g/dL Lipase 17 (8-78) U/L Urine Color Urine Appearance Urine pH (5.0-8.0) Ur Specific [place] (1.005-1.025) Urine Protein (NEG-TRACE) MG/DL Urine Glucose (UA) (NEG) MG/DL Urine Ketones (NEG) MG/DL Urine Blood (NEG) Urine Nitrite (NEG) Ur Leukocyte Esterase (NEG) 10/12/21 Range/Units 07:34 WBC (4.8-10.8) X10*3/uL RBC (4.20-5.50) X10*6/uL Hgb (12.0-16.0) g/dl Hct (37.0-47.0) % MCV (80.0-98.0) fL MCH (27.0-33.0) pg MCHC (31.0-35.0) g/dl RDW (11.0-16.0) % Plt Count (160-400) X10*3/uL MPV (9.4-12.3) fL Immature Gran % (Auto) (0.0-0.4) % Neut % (Auto) (45-73) % Lymph % (Auto) (20-40) % Ocean % (Auto) (2-11) % Eos % (Auto) (0-4) % Baso % (Auto) (0-2) % Lymph # (Auto) (1.2-4.9) X10*3/uL Ocean # (Auto) (0.1-1.2) X10*3/uL Eos # (Auto) (0.0-0.4) X10*3/uL Baso # (Auto) (0.0-0.2) X10*3/uL Abs Immat Gran (auto) (0.00-0.03) X10*3/uL Absolute Neuts (auto) (2.0-8.3) x10*3/uL Absolute Nucleated RBC (0.0-0.012) X10*3/uL Nucleated RBC % (auto) (0.0-0.2) /100WBC Sodium (135-145) mmol/L Potassium (3.3-5.1) mmol/L Chloride (96-108) mmol/L Carbon Dioxide (22-29) mmol/L Anion Gap (12-20) BUN (9-16) mg/dL Creatinine (0.5-1.4) mg/dL Estim Creat Clear Calc Estimated GFR Random Glucose (60-115) mg/dL Calcium (8.4-10.2) mg/dL Total Bilirubin (0.0-1.0) mg/dL Direct Bilirubin (0.0-0.5) mg/dL AST (5-31) U/L ALT (0-31) U/L Alkaline Phosphatase (39-117) U/L Troponin I High Sens (<3.5-17.0) ng/L Total Protein (6.5-8.0) g/dL Albumin (3.5-5.0) g/dL Lipase (8-78) U/L Urine Color STRAW Urine Appearance HAZY Urine pH 6.0 (5.0-8.0) Ur Specific [place] <= 1.005 (1.005-1.025) Urine Protein NEG (NEG-TRACE) MG/DL Urine Glucose (UA) NEG (NEG) MG/DL Urine Ketones NEG (NEG) MG/DL Urine Blood NEG (NEG) Urine Nitrite NEG (NEG) Ur Leukocyte Esterase NEG (NEG) Imaging Data CT scan - abdomen: Attestation: I personally reviewed and interpreted this imaging study as follows: Radiologist's impression: Mild colonic diverticulosis with a subtle area of mesenteric stranding again identified abutting the descending colon. This may represent chronic changes, however, in this setting of left-sided abdominal pain, very mild active diverticulitis is also within the differential. Clinical correlation is recommended.? ? Discharge Plan Discharge Clinical Impression: Abdominal pain, History of diverticulitis Patient Disposition: Home, Self-Care Instructions: Acute Abdominal Pain (ED), Diverticulitis Diet (ED) Prescriptions: No Action ibuprofen [Advil] 200 mg tablet 200 mg PO Q6H PRN0RF ciprofloxacin HCl 500 mg tablet 500 mg PO BID Qty: 20 0RF metronidazole 500 mg tablet 500 mg PO BID 10 Days Qty: 20 0RF cyclobenzaprine 5 mg tablet 5 mg PO BEDTIME PRN (Reason: muscle spasm) Qty: 10 0RF nystatin 100,000 unit/mL suspension 4 ml PO QID 7 Days Qty: 112 0RF Rx Instructions: swish and swallow Referrals: Oj Russell MD [Physician] - 2 weeks Po,Aldo Huggins MD [Primary Care Provider] - 2 days
[2021-10-12 07:24] LABS: MANUAL DIFF FLAG NO
[2021-10-12 07:26] LABS: Basophils Percent Auto 0.4 % (0-2); Eosinophils Absolute Auto 0.1 X10*3/uL (0.0-0.4); Eosinophils Percent Auto 0.8 % (0-4); Hematocrit 42.9 % (37.0-47.0); Hemoglobin 14.6 g/dl (12.0-16.0); Imm Gran Abs Auto 0.02 X10*3/uL (0.00-0.03); Imm Gran Pct Auto 0.3 % (0.0-0.4); Lymphocytes Absolute Auto 1.8 X10*3/uL (1.2-4.9); Lymphocytes Percent Auto 22.7 % (20-40); Mean Corpuscular Hemoglobin 30.6 pg (27.0-33.0); Mean Corpuscular Volume 89.9 fL (80.0-98.0); Mean Platelet Volume 9.9 fL (9.4-12.3); Monocytes Absolute Auto 0.6 X10*3/uL (0.1-1.2); Neutrophils Absolute Auto 5.4 x10*3/uL (2.0-8.3); Neutrophils Percent Auto 68.8 % (45-73); Platelet Count 283 X10*3/uL (160-400); Red Blood Count 4.77 X10*6/uL (4.20-5.50); Red Cell Distribution Width 13.4 % (11.0-16.0); White Blood Count 7.9 X10*3/uL (4.8-10.8)
[2021-10-12] MEDS: 0.9 % Sodium Chloride 1,000 ML 999 ML IV (07:41)
[2021-10-12 07:44] LABS: Appearance Urine HAZY; Color Urine STRAW; Glucose Urine UA NEG (NEG); Leukocyte Esterase Urine NEG (NEG); Nitrite Urine NEG (NEG); Specific Gravity - Urine <= 1.005 (1.005-1.025); Urine Blood NEG (NEG); Urine Ketones NEG (NEG); Urine Protein NEG (NEG-TRACE)
[2021-10-12 07:45] LABS: Troponin-I High Sensitivity < 3.5 ng/L (<3.5-17.0)
[2021-10-12 08:14] LABS: Alanine Aminotransferase 27 U/L (0-31); Albumin Level 4.1 g/dL (3.5-5.0); Alkaline Phosphatase 99 U/L (39-117); Anion Gap 11 (12-20); Aspartate Amino Transferase 17 U/L (5-31); Bilirubin Direct 0.3 mg/dL (0.0-0.5); Bilirubin Total 0.6 mg/dL (0.0-1.0); Blood Urea Nitrogen 6 mg/dL (9-16); Calcium 9.4 mg/dL (8.4-10.2); Carbon Dioxide 26 mmol/L (22-29); Chloride 106 mmol/L (96-108); Creatinine Clr Calc Pharmacy 95.2; Estimated Glomerular Filt Rate > 60; Glucose Random 103 mg/dL (60-115); Lipase 17 U/L (8-78); Potassium 3.8 mmol/L (3.3-5.1); Sodium 139 mmol/L (135-145); Total Protein 6.4 g/dL (6.5-8.0)
== END 2021-10-12 09:37 | disposition home or self-care (01) ==
PROVIDERS: Emergency Provider Emergency Medicine; PCP Internal Medicine
DX: K57.30 Diverticulosis of large intestine without perforation or abscess without bleeding (principal); R10.9 Unspecified abdominal pain; F17.210 Nicotine dependence, cigarettes, uncomplicated; Z79.899 Other long term (current) drug therapy; Z71.6 Tobacco abuse counseling
CPT/HCPCS: 36415; 74176; 80048; 80076; 81003; 83690; 84484; 85025; 99283

== ENCOUNTER 2021-10-12 20:28 | Inpatient (IN) | payer OTHER, SELFPAY ==
[2021-10-12 22:01] VITALS: BP 129/64; PULSE 92; RESP 16; TEMP 36.9; O2SAT 94; BMI 34.7
[2021-10-13] VITALS (7 sets, daily range): BP systolic 91–140; BP diastolic 49–71; PULSE 77–150; RESP 16–19; TEMP 36.4–37.2; O2SAT 89–99
--- NOTE | 2021-10-13 01:03 | ED.ABDPAIN ---
HPI - Abdominal Pain General Chief Complaint: Abdominal Pain Stated Complaint: seen here today abd pain getting worse Time Seen by Provider: 10/13/21 00:42 Source: patient Mode of arrival: ambulatory Limitations: no limitations History of Present Illness HPI narrative: 51-year-old female was seen in the emergency department early this morning and 2 who returns to the emergency department for evaluation abdominal pain for 2 days. She had her 1st episode of diverticulitis in May of 2021. Approximately 10 days prior developed abdominal pain , her PCP diagnosed her with diverticulitis and started her on ciprofloxacin and Flagyl. She completed her 10 day course of antibiotics on Wednesday (3 days prior to evaluation). Yesterday, at around 14:00 she developed a gradual onset of dull abdominal pain. The pain came on at rest. She states the pain was located diffusely throughout her abdomen and progressively became more severe. She now describes the pain a sharp pain which waxed and waned in intensity with the pain being 10/10 at its worst. At the time of evaluation, she states that her pain is 10/10. She denied fever but she states she did have shaking chills. She complains of constant nausea and she had 1 episode of emesis today. She states that her last bowel movement was this morning and the bowel movement was greenish in color. She states that she had urinary frequency with no dysuria. She was seen here in the emergency department at around 07:00 hours yesterday morning for this abdominal pain. At that time, she had a CBC, CMP, lipase which were unremarkable. She also had a CT scan of the abdomen pelvis without contrast that revealed mild colonic diverticulosis with subtle area of mesenteric stranding abutting the descending colon consistent with very mild active diverticulitis. The patient states that she was discharged home but still had pain when she left the emergency department, the pain got progressively worse therefore she return to the emergency department for evaluation. Related Data Home Medications Medication Instructions Recorded Confirmed ibuprofen 200 mg tablet (Advil) 200 mg PO Q6H PRN 03/13/21 09/30/21 Previous Rx's Medication Instructions Recorded ciprofloxacin HCl 500 mg tablet 500 mg PO BID #20 tab 09/30/21 metronidazole 500 mg tablet 500 mg PO BID 10 Days #20 tab 09/30/21 cyclobenzaprine 5 mg tablet 5 mg PO BEDTIME PRN #10 tab 10/03/21 nystatin 100,000 unit/mL oral 4 ml PO QID 7 Days #112 ml 10/08/21 suspension Allergies Allergy/AdvReac Type Severity Reaction Status Date / Time No Known Allergies Allergy Verified 09/30/21 13:14 [No Known Allergies*] Review of Systems Review of Systems Yes all other systems are reviewed and are negative [facility] Past Medical History [facility] Narrative: Past medical history: Diverticulitis May 2021. Past surgical history: None. Social history: Patient smokes half pack of cigarettes per day times 30 years. Patient drinks alcohol 2 times a week, she states that she drinks beer and alcoholic [place]. She denies drug use. Medical History Clostridium difficile diarrhea Degenerative disc disease at L5-S1 level Neuropathy Obesity (BMI 30-39.9) Tinnitus Tobacco abuse Vitamin D deficiency Surgical History H/O hand surgery Family History Family History Mother Breast cancer Asthma Father No problems noted. 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 [employer] Home Cognitive needs: No Hearing needs: No Vision needs: Yes (glasses) Physical Exam ED Vital Signs: Vital Signs - 24 hr 10/12/21 22:01 10/13/21 00:26 Temperature 98.5 F 98.5 F Pulse Rate 92 88 Respiratory Rate 16 18 Blood Pressure 129/64 140/71 H Pulse Oximetry 94 94 BMI result Body Mass Index 34.7 Const Other: Awake, alert, female patient, cooperative, appears to be in distress secondary to her abdominal pain, answers all questions appropriately HENMT Head: Yes normal to inspection, Yes normocephalic and Yes atraumatic Ears: external ears normal General nose exam: Normal external nose present Face and sinus: Yes normal facial exam Mouth: Normal oral and palatal mucosa present Throat: Yes posterior oropharynx normal Eyes General: appearance normal, both eyes and all related structures Pupils: Equal, round and reactive pupils present Neck Neck: Yes normal visual inspection, Yes no lymphadenopathy, Yes trachea midline and Yes supple Chest Chest palpation & inspection: normal inspection of the chest and normal palpation of entire chest wall Resp Effort & Inspection: normal respiratory effort and able to speak in complete sentences Auscultation: clear to auscultation bilaterally Cardio Rate: regular rate Rhythm: regular rhythm Heart sounds: S1 normal heart sound present, S2 normal heart sound present and no murmurs GI Inspection: Yes normal to inspection and Yes obesity Palpation (GI): Soft to palpation, Tenderness to palpation present (GI) (Moderate diffuse tenderness) and no guarding Auscultation: normal bowel sounds General: Yes no CVA tenderness Back/Spine/Pelvis Back: no CVA tenderness Skin General skin exam: no rashes or lesions noted Neuro Cranial nerves: Yes CN's II-XII intact bilaterally and Yes Equal, round and reactive pupils present Cognition (Neuro): normal cognition Motor exam (neuro): 5/5 motor strength present throughout Extrem General: Yes normal to inspection Psych Appearance: grossly normal Speech and movement: Normal speech and movement present Affect: normal affect Attitude: cooperative Thought process: Normal thought process present Thought content: Normal thought content present Course Course Course Narrative: 51-year-old female with 1st episode of diverticulitis May 2021 who was diagnosed with diverticulitis approximately 14 days prior by her PCP and completed the 10 day course of Cipro and Flagyl 3 days prior to evaluation. Two days prior to evaluation she developed gradual onset of diffuse abdominal pain. Her pain got worse and she was seen yesterday in the emergency department and had normal labs with CT scan of the abdomen pelvis without IV contrast suggesting mild descending colon diverticulitis. Patient was discharged without any further treatment and now returns with severe diffuse abdominal pain which is 10/10. Vital signs were unremarkable. Abdominal exam revealed diffuse abdominal tenderness with no localizing tenderness. Laboratory evaluation was ordered including lactated blood cultures . For her pain I ordered Toradol 15 mg IV, morphine 4 mg IV and Zofran 4 mg IV. She was also ordered to get normal saline x1 L. patient will be treated with Zosyn 4.5 g IV. 0225: Laboratory evaluation revealed a normal CBC, CMP, lipase and lactate. CRP was elevated at 1.84. ESR is pending. The patient's pain went from 10/10 to 5/10 with the above treatment. She does not want any more pain medication at this time. Given fact that this is the patient's 2nd ED in 24 hours and the fact that her pain is significantly worse, I believe the patient needs to be admitted IV antibiotics and IV pain management. I did discuss the patient's presentation with the covering hospitalist, Dr. Landon and the patient will be admitted for further management. At this time, I do not think that the patient has a surgical abdomen. MDM - Abdominal Pain Lab Data Result diagrams: 10/13/21 01:19 10/13/21 01:19 Labs: Lab Results 10/13/21 10/13/21 10/13/21 Range/Units 01:19 01:19 01:19 WBC 9.7 (4.8-10.8) X10*3/uL RBC 4.73 (4.20-5.50) X10*6/uL Hgb 14.4 (12.0-16.0) g/dl Hct 42.3 (37.0-47.0) % MCV 89.4 (80.0-98.0) fL MCH 30.4 (27.0-33.0) pg MCHC 34.0 (31.0-35.0) g/dl RDW 13.2 (11.0-16.0) % Plt Count 288 (160-400) X10*3/uL MPV 10.1 (9.4-12.3) fL Immature Gran % (Auto) 0.4 (0.0-0.4) % Neut % (Auto) 66.7 (45-73) % Lymph % (Auto) 24.9 (20-40) % [place] % (Auto) 6.8 (2-11) % Eos % (Auto) 0.5 (0-4) % Baso % (Auto) 0.7 (0-2) % Lymph # (Auto) 2.4 (1.2-4.9) X10*3/uL [place] # (Auto) 0.7 (0.1-1.2) X10*3/uL Eos # (Auto) 0.1 (0.0-0.4) X10*3/uL Baso # (Auto) 0.1 (0.0-0.2) X10*3/uL Abs Immat Gran (auto) 0.04 H (0.00-0.03) X10*3/uL Absolute Neuts (auto) 6.5 (2.0-8.3) x10*3/uL Absolute Nucleated RBC 0.000 (0.0-0.012) X10*3/uL Nucleated RBC % (auto) 0.0 (0.0-0.2) /100WBC Sodium 139 (135-145) mmol/L Potassium 3.6 (3.3-5.1) mmol/L Chloride 104 (96-108) mmol/L Carbon Dioxide 27 (22-29) mmol/L Anion Gap 12 (12-20) BUN 5 L (9-16) mg/dL Creatinine 0.66 (0.5-1.4) mg/dL Estim Creat Clear Calc 93.8 Estimated GFR > 60 Random Glucose 100 (60-115) mg/dL Lactic Acid 0.7 (0.5-2.0) mmol/L Calcium 9.4 (8.4-10.2) mg/dL Total Bilirubin 0.7 (0.0-1.0) mg/dL AST 16 (5-31) U/L ALT 23 (0-31) U/L Alkaline Phosphatase 93 (39-117) U/L C-Reactive Protein 1.84 H (< or = 0.50) mg/dL Total Protein 6.4 L (6.5-8.0) g/dL Albumin 4.1 (3.5-5.0) g/dL Lipase 9 (8-78) U/L COVID-19 ([facility]) (Negative) COVID-19 Clin Com 10/13/21 Range/Units 01:19 WBC (4.8-10.8) X10*3/uL RBC (4.20-5.50) X10*6/uL Hgb (12.0-16.0) g/dl Hct (37.0-47.0) % MCV (80.0-98.0) fL MCH (27.0-33.0) pg MCHC (31.0-35.0) g/dl RDW (11.0-16.0) % Plt Count (160-400) X10*3/uL MPV (9.4-12.3) fL Immature Gran % (Auto) (0.0-0.4) % Neut % (Auto) (45-73) % Lymph % (Auto) (20-40) % [place] % (Auto) (2-11) % Eos % (Auto) (0-4) % Baso % (Auto) (0-2) % Lymph # (Auto) (1.2-4.9) X10*3/uL [place] # (Auto) (0.1-1.2) X10*3/uL Eos # (Auto) (0.0-0.4) X10*3/uL Baso # (Auto) (0.0-0.2) X10*3/uL Abs Immat Gran (auto) (0.00-0.03) X10*3/uL Absolute Neuts (auto) (2.0-8.3) x10*3/uL Absolute Nucleated RBC (0.0-0.012) X10*3/uL Nucleated RBC % (auto) (0.0-0.2) /100WBC Sodium (135-145) mmol/L Potassium (3.3-5.1) mmol/L Chloride (96-108) mmol/L Carbon Dioxide (22-29) mmol/L Anion Gap (12-20) BUN (9-16) mg/dL Creatinine (0.5-1.4) mg/dL Estim Creat Clear Calc Estimated GFR Random Glucose (60-115) mg/dL Lactic Acid (0.5-2.0) mmol/L Calcium (8.4-10.2) mg/dL Total Bilirubin (0.0-1.0) mg/dL AST (5-31) U/L ALT (0-31) U/L Alkaline Phosphatase (39-117) U/L C-Reactive Protein (< or = 0.50) mg/dL Total Protein (6.5-8.0) g/dL Albumin (3.5-5.0) g/dL Lipase (8-78) U/L COVID-19 ([facility]) Negative (Negative) COVID-19 Clin Com See Note Discharge Plan Discharge Clinical Impression: Acute diverticulitis Abdominal pain Qualifiers: Abdominal location: generalized Qualified Code(s): R10.84 - Generalized abdominal pain Prescriptions: No Action ibuprofen [Advil] 200 mg tablet 200 mg PO Q6H PRN0RF ciprofloxacin HCl 500 mg tablet 500 mg PO BID Qty: 20 0RF metronidazole 500 mg tablet 500 mg PO BID 10 Days Qty: 20 0RF cyclobenzaprine 5 mg tablet 5 mg PO BEDTIME PRN (Reason: muscle spasm) Qty: 10 0RF nystatin 100,000 unit/mL suspension 4 ml PO QID 7 Days Qty: 112 0RF Rx Instructions: swish and swallow
[2021-10-13 01:27] LABS: MANUAL DIFF FLAG NO
[2021-10-13] MEDS: 0.9 % Sodium Chloride 1,000 ML 999 ML IV (01:27)
[2021-10-13 01:28] LABS: Basophils Absolute Auto 0.1 X10*3/uL (0.0-0.2); Basophils Percent Auto 0.7 % (0-2); Eosinophils Absolute Auto 0.1 X10*3/uL (0.0-0.4); Eosinophils Percent Auto 0.5 % (0-4); Hematocrit 42.3 % (37.0-47.0); Hemoglobin 14.4 g/dl (12.0-16.0); Imm Gran Abs Auto 0.04 X10*3/uL (0.00-0.03); Imm Gran Pct Auto 0.4 % (0.0-0.4); Lymphocytes Absolute Auto 2.4 X10*3/uL (1.2-4.9); Lymphocytes Percent Auto 24.9 % (20-40); Mean Corpuscular Hemoglobin 30.4 pg (27.0-33.0); Mean Corpuscular Volume 89.4 fL (80.0-98.0); Mean Platelet Volume 10.1 fL (9.4-12.3); Monocytes Absolute Auto 0.7 X10*3/uL (0.1-1.2); Monocytes Percent Auto 6.8 % (2-11); Neutrophils Absolute Auto 6.5 x10*3/uL (2.0-8.3); Neutrophils Percent Auto 66.7 % (45-73); Platelet Count 288 X10*3/uL (160-400); Red Blood Count 4.73 X10*6/uL (4.20-5.50); Red Cell Distribution Width 13.2 % (11.0-16.0); White Blood Count 9.7 X10*3/uL (4.8-10.8)
[2021-10-13] MEDS: Morphine Sulfate 4 MG/ML CARTRIDGE IVPUSH (01:28)
[2021-10-13] MEDS: ondansetron HCL 4 MG/2 ML VIAL IVPUSH ×2 (01:28→07:58)
[2021-10-13] MEDS: Ketorolac Tromethamine 15 MG/ML VIAL IVPUSH (01:28)
[2021-10-13] MEDS: Piperacillin Sodium/Tazobactam 4.5 GM in 0.9 % Sodium Chloride 100 ML IV (01:33)
[2021-10-13 01:38] LABS: Lactic Acid 0.7 mmol/L (0.5-2.0)
[2021-10-13 01:44] LABS: Alanine Aminotransferase 23 U/L (0-31); Albumin Level 4.1 g/dL (3.5-5.0); Alkaline Phosphatase 93 U/L (39-117); Anion Gap 12 (12-20); Aspartate Amino Transferase 16 U/L (5-31); Bilirubin Total 0.7 mg/dL (0.0-1.0); Blood Urea Nitrogen 5 mg/dL (9-16); C Reactive Protein 1.84 mg/dL (< or = 0.50); Calcium 9.4 mg/dL (8.4-10.2); Carbon Dioxide 27 mmol/L (22-29); Chloride 104 mmol/L (96-108); Creatinine Clr Calc Pharmacy 93.8; Estimated Glomerular Filt Rate > 60; Glucose Random 100 mg/dL (60-115); Lipase 9 U/L (8-78); Potassium 3.6 mmol/L (3.3-5.1); Sodium 139 mmol/L (135-145); Total Protein 6.4 g/dL (6.5-8.0)
[2021-10-13 01:47] LABS: COVID-19 Test Negative (Negative)
--- NOTE | 2021-10-13 02:24 | P.HPHOSP_ITS ---
History of Present Illness Date of Service: 10/13/21 Chief Complaint: Abdominal pain 51-year-old female with a past medical history of obesity, vitamin-D deficiency, degenerative spine disease, history of C diff infection, history of diverticulitis presented to the hospital today with a chief complaint of abdominal pain. Patient reported that about 2 weeks ago she was diagnosed with diverticulitis and has finished outpatient antibiotics with Cipro and Flagyl; finished a course of antibioticson last wednesday; but she continued to have the diffuse abdominal discomfort. Associated with nausea and diarrhea; denies any fevers and chills. Mentioned that given continued symptoms he presented to the ER yesterday and had CT abdomen done which showed mild inflammation in subsequently discharged home. After she left home she still has abdominal pain hence presented back again to the hospital. Denies any blood in the stool or vomitus. Denies any concerns for food poisoning. Denies any chest pain or palpitations. Review of all other systems is negative except mentioned above ER course: Per ER team patient noted to have diffuse abdominal discomfort; concerning for recurrent diverticulitis, requiring IV antibiotics; admitted to the hospital for further management. [facility] Medical History Clostridium difficile diarrhea Degenerative disc disease at L5-S1 level Neuropathy Obesity (BMI 30-39.9) Tinnitus Tobacco abuse Vitamin D deficiency Family History Mother Breast cancer Asthma Father No problems noted. 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[employer] 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 Cognitive needs: No Hearing needs: No Vision needs: Yes (glasses) Meds Allergies Allergy/AdvReac Type Severity Reaction Status Date / Time No Known Allergies Allergy Verified 09/30/21 13:14 [No Known Allergies*] Home Medications Medication Instructions Recorded Confirmed Last Taken Type ibuprofen 200 mg tablet (Advil) 200 mg PO Q6H PRN 03/13/21 09/30/21 Unknown History Physical Exam Vital Signs and Narrative: Vital Signs: Last Vital Signs Temp 98.5 F 10/13/21 00:26 Pulse 88 10/13/21 00:26 Resp 18 10/13/21 00:26 BP 140/71 H 10/13/21 00:26 Pulse Ox 94 10/13/21 00:26 BMI result Body Mass Index 34.7 Gen: Appears be in no acute distress HEENT: NCAT, Moist mucosa. Pulmonary: Vesicular breath sounds, fair air entry CVS: Normal S1-S2 Abdomen: BS+, Soft, Nontender Extremities: Warm well perfused Neuro: Alert and awake. Results Labs CBC and Chem 7: 10/13/21 01:19 10/13/21 01:19 Labs: Laboratory Results - last 24 hr 10/13/21 10/13/21 10/13/21 01:19 01:19 01:19 MCV 89.4 MCH 30.4 MCHC 34.0 RDW 13.2 Plt Count 288 MPV 10.1 Immature Gran % (Auto) 0.4 Neut % (Auto) 66.7 Lymph % (Auto) 24.9 [place] % (Auto) 6.8 Eos % (Auto) 0.5 Baso % (Auto) 0.7 Lymph # (Auto) 2.4 [place] # (Auto) 0.7 Eos # (Auto) 0.1 Baso # (Auto) 0.1 Abs Immat Gran (auto) 0.04 H Absolute Neuts (auto) 6.5 Absolute Nucleated RBC 0.000 Nucleated RBC % (auto) 0.0 Anion Gap 12 Estim Creat Clear Calc 93.8 Estimated GFR > 60 Random Glucose 100 Lactic Acid 0.7 Calcium 9.4 Total Bilirubin 0.7 AST 16 ALT 23 Alkaline Phosphatase 93 C-Reactive Protein 1.84 H Total Protein 6.4 L Albumin 4.1 Lipase 9 COVID-19 ([facility]) COVID-19 Clin Com 10/13/21 01:19 MCV MCH MCHC RDW Plt Count MPV Immature Gran % (Auto) Neut % (Auto) Lymph % (Auto) [place] % (Auto) Eos % (Auto) Baso % (Auto) Lymph # (Auto) [place] # (Auto) Eos # (Auto) Baso # (Auto) Abs Immat Gran (auto) Absolute Neuts (auto) Absolute Nucleated RBC Nucleated RBC % (auto) Anion Gap Estim Creat Clear Calc Estimated GFR Random Glucose Lactic Acid Calcium Total Bilirubin AST ALT Alkaline Phosphatase C-Reactive Protein Total Protein Albumin Lipase COVID-19 ([facility]) Negative COVID-19 Clin Com See Note Assessment and Plan (1) Diverticulitis: Status: Acute Plan 51-year-old female with a past medical history of obesity, vitamin-D deficiency, degenerative spine disease, history of C diff infection, history of diverticulitis presented to the hospital today with a chief complaint of abdominal pain. Noted to have recurrent diverticulitis. Admitted for further management. Recurrent diverticulitis: Will give the patient on ceftriaxone and Flagyl. Will consult General surgery for further recommendations. Will give the patient NPO IV fluids Pain control Will obtain stool studies including C diff. DVT prophylaxis: Lovenox Code status: Full code Quality Stroke Does the patient have a stroke diagnosis?: No VTE Prior VTE?: No VTE Risk Level:: Medical - moderate - high VTE Device Contraindication: Treatment Not Indicated VTE Drug Contraindication: N/A - Med Ordered
[2021-10-13 02:52] LABS: Erythrocyte Sedimentation Rate 10 MM/HR (0-20)
[2021-10-13] MEDS: Dextrose 5 % and 0.45 % NaCl 1,000 ML 75 ML IVCONT (02:55)
[2021-10-13] MEDS: cefTRIAXone sodium 1 GM in 0.9 % Sodium Chloride 50 ML IV (03:01)
[2021-10-13] MEDS: metroNIDAZOLE/NS 500 MG/100 ML PIGGYBACK 100 MG IV ×3 (03:59→20:03)
[2021-10-13 05:42] LABS: MANUAL DIFF FLAG NO
[2021-10-13 05:43] LABS: Basophils Absolute Auto 0.1 X10*3/uL (0.0-0.2); Basophils Percent Auto 1.3 % (0-2); Eosinophils Absolute Auto 0.1 X10*3/uL (0.0-0.4); Eosinophils Percent Auto 1.5 % (0-4); Hematocrit 37.4 % (37.0-47.0); Hemoglobin 12.4 g/dl (12.0-16.0); Imm Gran Abs Auto 0.01 X10*3/uL (0.00-0.03); Imm Gran Pct Auto 0.1 % (0.0-0.4); Lymphocytes Absolute Auto 2.7 X10*3/uL (1.2-4.9); Lymphocytes Percent Auto 38.1 % (20-40); Mean Corpuscular HGB Conc 33.2 g/dl (31.0-35.0); Mean Corpuscular Hemoglobin 30.5 pg (27.0-33.0); Mean Corpuscular Volume 92.1 fL (80.0-98.0); Mean Platelet Volume 9.9 fL (9.4-12.3); Monocytes Absolute Auto 0.5 X10*3/uL (0.1-1.2); Monocytes Percent Auto 7.5 % (2-11); Neutrophils Absolute Auto 3.7 x10*3/uL (2.0-8.3); Neutrophils Percent Auto 51.5 % (45-73); Platelet Count 251 X10*3/uL (160-400); Red Blood Count 4.06 X10*6/uL (4.20-5.50); Red Cell Distribution Width 13.3 % (11.0-16.0); White Blood Count 7.2 X10*3/uL (4.8-10.8)
[2021-10-13 06:07] LABS: Anion Gap 10 (12-20); Blood Urea Nitrogen 4 mg/dL (9-16); Calcium 8.2 mg/dL (8.4-10.2); Carbon Dioxide 25 mmol/L (22-29); Chloride 108 mmol/L (96-108); Creatinine Clr Calc Pharmacy 93.8; Estimated Glomerular Filt Rate > 60; Glucose Random 99 mg/dL (60-115); Potassium 3.5 mmol/L (3.3-5.1); Sodium 139 mmol/L (135-145)
[2021-10-13] MEDS: Enoxaparin Sodium 40 MG/0.4 ML SYRINGE SUBCUT (07:59)
[2021-10-13] MEDS: 0.9 % Sodium Chloride Flush 3 ML SYRINGE IVFLUSH (08:02)
[2021-10-13] MEDS: Dextrose 5 % and Lactated Ring 1,000 ML 100 ML IVCONT ×2 (08:02→22:52)
--- NOTE | 2021-10-13 09:00 | PHA.MEDREC ---
MED REC COMPLETE, NO ISSUES Pharmacy Consult ? Medication Reconciliation Pharmacy has completed the medication reconciliation.
--- NOTE | 2021-10-13 09:34 | PM.CNGS ---
History of Present Illness Consult details Consult date: 10/13/21 <Rosalva Wang PA-C - Last Filed: 10/13/21 09:53> Reason for consult: other (diverticulitis) <GEM Davis Last Filed: 10/13/21 09:53> Requesting physician: Omega Landon <Rosalva Wang PA-C - Last Filed: 10/13/21 09:53> Narrative: 51 year old female with PMH of neuropathy who presented to the ED with complaints of lower abdominal pain. She reports the pain initially started September 30 and was seen by her PCP and diagnosed with diverticulitis. She was started on cipro/flagyl. She reports the pain lessened and she felt better with the antibiotics. Her last dose was 10/10. She reports that the next day she developed diffuse abdominal cramps. The pain localized more to the LLQ and pelvis area. It was associated with chills, nausea and one episode of vomiting. This prompted her to seek care in the ED on Wednesday. CT scan was performed at that time demonstrating colonic diverticulosis with mesenteric stranding abutting the descending colon consistent with diverticulitis. She was then discharged home. The pain however worsened in severity and she returned to the ED. She was admitted to the medicine service and started on ceftriaxone and flagyl. Surgery was consulted for diverticulitis. She reports feeling better with analgesics and is hungry. She also endorses watery, yellow stools a couple of times a day that began a few days after she started antibiotics. She has been able to tolerate some PO intake. She reports one prior episode of diverticulitis in 05/2021. She was treated with oral antibiotics at that time. She has never had a colonoscopy before. <GEM Davis Last Filed: 10/13/21 09:53> Review of Systems Constitutional: Constitutional: Reports as per HPI <GEM Davis Last Filed: 10/13/21 09:53> ENT: Denies dizziness <GEM Davis Last Filed: 10/13/21 09:53> Cardiovascular: Cardiovascular: Denies chest pain and Denies dyspnea <GEM Davis Last Filed: 10/13/21 09:53> Respiratory: Respiratory: Denies cough and Denies dyspnea <GEM Davis Last Filed: 10/13/21 09:53> Gastrointestinal: Gastrointestinal: Reports as per HPI, Denies melena, Denies hematochezia and Denies hematemesis <GEM Davis Last Filed: 10/13/21 09:53> Genitourinary: Genitourinary: Denies hematuria and Denies dysuria <GEM Davis Last Filed: 10/13/21 09:53> Integumentary/Breasts: Skin/Breast: Denies rash <GEM Davis Last Filed: 10/13/21 09:53> Neurologic: Denies dizziness <GEM Davis Last Filed: 10/13/21 09:53> [facility] Past Medical History Medical History: Medical History Clostridium difficile diarrhea Degenerative disc disease at L5-S1 level Neuropathy Obesity (BMI 30-39.9) Tinnitus Tobacco abuse Vitamin D deficiency <GEM Davis Last Filed: 10/13/21 09:53> Family History Family History: Family History Mother Breast cancer Asthma Father No problems noted. Maternal Aunt Colon cancer Brother Schizophrenia <GEM Davis Last Filed: 10/13/21 09:53> Surgical History Surgical History: Surgical History H/O hand surgery <GEM Davis Last Filed: 10/13/21 09:53> Social History Social History: Social History Housing: House Alcohol intake: unknown Patient Tobacco Use Status: Tobacco use Unknown Tobacco use type: Cigarette Cigarette Packs Per Day: 0.5 Cigarettes Per Day: 10 Years Smoked: not ready to stop 03/2021 e-Cigarette/Vaping Use: Never Used Second Hand Smoke Exposure: Yes Use of substances other than those prescribed or required for medical reasons: Unknown Advance Directives: No Advance Directives Information Provided: No Patient : No service: No Current occupational status: employed 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[place] [employer] Cognitive needs: No Hearing needs: No Vision needs: Yes (glasses) <Rosalva Wang PA-C - Last Filed: 10/13/21 09:53> Meds Allergies/Adverse reactions: Allergies Allergy/AdvReac Type Severity Reaction Status Date / Time No Known Allergies Allergy Verified 09/30/21 13:14 [No Known Allergies*] <Rosalva Wang PA-C - Last Filed: 10/13/21 09:53> Active Medications: Current Medications Acetaminophen (Acetaminophen 325 Mg Tablet) 650 mg PO Q6H PRN PRN Reason: Pain, Mild (Pain Scale 1-3) Enoxaparin Sodium (Enoxaparin Sodium 40 Mg/0.4 Ml Syringe) 40 mg SUBCUT Q24H [facility] Last Admin: 10/13/21 07:59 Dose: 40 mg Documented by: Hydromorphone HCl (Hydromorphone Hcl 1 Mg/Ml Syringe) 0.5 mg IVPUSH Q4H PRN; Protocol PRN Reason: Pain, Severe (Pain Scale 7-10) Ceftriaxone Sodium 1 gm/ (Sodium Chloride) 50 mls @ 100 mls/hr IV Q24H [facility] Last Infusion: 10/13/21 03:59 Dose: Infused Documented by: Metronidazole (Flagyl) 500 mg in 100 mls @ 100 mls/hr IV Q8H [facility] Last Infusion: 10/13/21 05:03 Dose: Infused Documented by: Dextrose/Lactated Ringer's (D5lr) 1,000 mls @ 100 mls/hr IVCONT .Q10H [facility] Last Admin: 10/13/21 08:02 Dose: 100 mls/hr Documented by: Melatonin (Melatonin 3 Mg Tablet) 6 mg PO BEDTIME PRN PRN Reason: Insomnia Ondansetron HCl (Ondansetron Hcl 4 Mg/2 Ml Vial) 4 mg IVPUSH Q6H PRN PRN Reason: Nausea and Vomiting Last Admin: 10/13/21 07:58 Dose: 4 mg Documented by: Senna (Sennosides 8.6 Mg Tablet) 17.2 mg PO BEDTIME PRN PRN Reason: Constipation Sodium Chloride (0.9 % Sodium Chloride Flush 3 Ml Syringe) 3 ml IVFLUSH [facility] Last Admin: 10/13/21 08:02 Dose: 3 ml Documented by: <GEM Davis Last Filed: 10/13/21 09:53> Home medications: Home Medications Medication Instructions Recorded Confirmed Last Taken Type ibuprofen 200 mg tablet (Advil) 200 mg PO Q6H PRN 03/13/21 10/13/21 Unknown History Bifidobacterium infantis 10.5 mg 10.5 mg PO DAILY 10/13/21 10/13/21 Unknown History (10 million cell) chewable tablet (Align) <GEM Davis Last Filed: 10/13/21 09:53> Physical Exam Vital Signs: Vital Signs: Last Vital Signs Temp 98.7 F 10/13/21 07:29 Pulse 77 10/13/21 07:29 Resp 19 10/13/21 07:29 BP 97/58 L 10/13/21 07:29 Pulse Ox 97 10/13/21 07:29 BMI result Body Mass Index 34.7 <GEM Davis Last Filed: 10/13/21 09:53> Const: Orientation/consciousness: No patient oriented x3 <GEM Davis Last Filed: 10/13/21 09:53> Eyes: Sclerae: sclerae normal <GEM Davis Last Filed: 10/13/21 09:53> Resp: Effort & Inspection: normal respiratory effort <GEM Davis Last Filed: 10/13/21 09:53> GI: Inspection: Yes normal to inspection and No distended <GEM Davis Last Filed: 10/13/21 09:53> Palpation (GI): Soft to palpation, Tenderness to palpation present (GI) (moderate) in the LLQ and suprapubicly, no guarding and not rigid <GEM Davis Last Filed: 10/13/21 09:53> Percussion: Yes normal to percussion <Rosalva Wang PA-C - Last Filed: 10/13/21 09:53> Skin: General skin exam: no rashes or lesions noted <Rosalva Wang PA-C - Last Filed: 10/13/21 09:53> Neuro: General: No patient oriented x3 <GEM Davis Last Filed: 10/13/21 09:53> Extrem: General: Yes no clubbing, cyanosis or edema <Rosalva Wang PA-C - Last Filed: 10/13/21 09:53> Results Labs Result diagrams: : 10/13/21 05:38 10/13/21 05:38 <GEM Davis Last Filed: 10/13/21 09:53> Labs: Abnormal lab results 10/13/21 10/13/21 10/13/21 Range/Units 01:19 01:19 05:38 RBC 4.06 L (4.20-5.50) X10*6/uL Abs Immat Gran (auto) 0.04 H (0.00-0.03) X10*3/uL Anion Gap (12-20) BUN 5 L (9-16) mg/dL Calcium (8.4-10.2) mg/dL C-Reactive Protein 1.84 H (< or = 0.50) mg/dL Total Protein 6.4 L (6.5-8.0) g/dL 10/13/21 Range/Units 05:38 RBC (4.20-5.50) X10*6/uL Abs Immat Gran (auto) (0.00-0.03) X10*3/uL Anion Gap 10 L (12-20) BUN 4 L (9-16) mg/dL Calcium 8.2 L D (8.4-10.2) mg/dL C-Reactive Protein (< or = 0.50) mg/dL Total Protein (6.5-8.0) g/dL Short CBC 10/13/21 10/13/21 Range/Units 01:19 05:38 WBC 9.7 7.2 (4.8-10.8) X10*3/uL Hgb 14.4 12.4 (12.0-16.0) g/dl Hct 42.3 37.4 (37.0-47.0) % Plt Count 288 251 (160-400) X10*3/uL BMP 10/13/21 10/13/21 01:19 05:38 Sodium 139 139 Potassium 3.6 3.5 Chloride 104 108 Carbon Dioxide 27 25 BUN 5 L 4 L Creatinine 0.66 0.66 Calcium 9.4 8.2 L D Liver Function 10/13/21 Range/Units 01:19 Total Bilirubin 0.7 (0.0-1.0) mg/dL AST 16 (5-31) U/L ALT 23 (0-31) U/L Alkaline Phosphatase 93 (39-117) U/L Albumin 4.1 (3.5-5.0) g/dL All other labs normal. <Rosalva Wang PA-C - Last Filed: 10/13/21 09:53> Imaging Additional studies: CT scan abd/pelvis - Normal caliber loops of small and large bowel. Normal appendix. Mild colonic diverticulosis. There is a subtle area of mesenteric stranding abutting the descending colon, in a similar location to which was visualized and May 2021. No intra-abdominal abscess identified. <Rosalva Wang PA-C - Last Filed: 10/13/21 09:53> Assessment and Plan (1) Acute diverticulitis: Status: Acute <Rosalva Wang PA-C - Last Filed: 10/13/21 09:53> Patient with left lower quadrant pain, with a CT scan showing mild diverticulitis of the sigmoid Currently with minimal tenderness Has a very benign exam Normal WBC No fever Okay for IV antibiotics for now Bowel rest Slowly advance diet as tolerated starting tomorrow Seen and examined independently - agree with KEILA Wang <Edmund Oglesby MD - Last Filed: 10/13/21 14:34> Plan 51 year old female recently treated with PO antibiotics for diverticulitis who returns with worsening LLQ/pelvic pain with a normal WBC count and CT scan demonstrating mild diverticultitis. She is well appearing with a rather benign abdominal exam without any peritoneal signs however given the recurrence of pain following discontinuation of PO abx, admit for IV antibiotics. Check C diff given diarrhea and antibiotic use. Further plan dependent upon clinical course but can have sips of liquids for now. Need for colonoscopy after this acute episode resolves was discussed with her. Case discussed with Dr. Oglesby. <Rosalva Wang PA-C - Last Filed: 10/13/21 09:53> Procedures Date of Service Date of Service: 10/13/21 <Rosalva Wang PA-C - Last Filed: 10/13/21 09:53>
--- NOTE | 2021-10-13 11:04 | PM.EVENT ---
Event Note Date of Service: 10/13/21 Event Note: 51-year-old female with a past medical history of obesity, vitamin-D deficiency, degenerative spine disease, history of C diff infection, history of diverticulitis presented to the hospital today with a chief complaint of abdominal pain.? per pt. about 2 weeks ago she was diagnosed with diverticulitis and has finished outpatient antibiotics with Cipro and Flagyl last wednesday; but she continued to have the diffuse abdominal discomfort,associated with nausea and diarrhea; denies any fevers and chills. last bowel movement 24 hours ago loose jelly like, no bowel movement since admission, complaining of being thirsty and requesting for clear liquids, has abdominal pain but better, denies nausea and vomiting. On examination awake alert no distress abdomen soft mild left lower quadrant tenderness no rebound no rigidity good bowel sounds extremities no edema 51-year-old female with a past medical history of obesity, vitamin-D deficiency, degenerative spine disease, history of C diff infection, history of diverticulitis presented to the hospital today with a chief complaint of abdominal pain,noted to have mild active diverticulitis.? Admitted for further management.? acute mild active diverticulitis continue IV ceftriaxone and Flagyl day 1.? continue IV fluids and analgesics will place on clear liquid diet follow stool studies including C diff./ stool culture? await surgical input Degenerative spine disease no acute symptoms, follow clinical course DVT prophylaxis:? Lovenox Code status:? Full code
[2021-10-13] MEDS: HYDROmorphone HCl 1 MG/ML SYRINGE 0.5 MG IVPUSH (11:07)
[2021-10-13 11:28] LABS: Appearance Urine CLEAR; Color Urine STRAW; Glucose Urine UA NEG (NEG); Leukocyte Esterase Urine NEG (NEG); Nitrite Urine NEG (NEG); Specific Gravity - Urine <= 1.005 (1.005-1.025); Urine Blood NEG (NEG); Urine Ketones NEG (NEG); Urine Protein NEG (NEG-TRACE)
--- NOTE | 2021-10-13 12:17 | MHC.CM.PN ---
met with pt in ed pt reports that she is independent ,drives and is vax x 3 no services are needed when dcd
[2021-10-13] MEDS: Acetaminophen 325 MG TABLET 650 MG PO (22:51)
[2021-10-14] VITALS (7 sets, daily range): BP systolic 111–140; BP diastolic 58–81; PULSE 75–93; RESP 16–20; TEMP 36.6–37.6; O2SAT 92–97
[2021-10-14] MEDS: cefTRIAXone sodium 1 GM in 0.9 % Sodium Chloride 50 ML IV (03:32)
[2021-10-14] MEDS: metroNIDAZOLE/NS 500 MG/100 ML PIGGYBACK 100 MG IV ×3 (04:08→22:54)
--- NOTE | 2021-10-14 05:45 | PC.NURSE ---
PER [facility] PATIENT HAS A CARDIAC RHYTHM OF SR AT 0000 AND 0400, AND WILL SEND NOTE TO HOSPITALIST TO CLARIFY IF CONTINUOUS MONITORING NEEDED LOOKS LIKE PATIENT IS A MED-SURG ADMIT.
[2021-10-14 07:49] LABS: Leukocytes Stool Qualitative NEGATIVE (NEGATIVE)
[2021-10-14 08:24] LABS: CDiff Gene PCR NEGATIVE (Negative)
[2021-10-14] MEDS: 0.9 % Sodium Chloride Flush 3 ML SYRINGE IVFLUSH (08:55)
[2021-10-14] MEDS: Enoxaparin Sodium 40 MG/0.4 ML SYRINGE SUBCUT (08:55)
[2021-10-14] MEDS: Dextrose 5 % and Lactated Ring 1,000 ML 100 ML IVCONT (09:07)
[2021-10-14] MEDS: Milk of Magnesia 30 ML ORAL.SUSP 15 ML PO (11:30)
[2021-10-14] MEDS: Lidocaine 4 % Patch ADH..PATCH 1 PATCH TRANSDERMA (11:32)
--- NOTE | 2021-10-14 15:18 | P.PNGS_ITS ---
Subjective Subjective Date of Service: 10/14/21 Interval history: Looks well Says she feels much better Does states she still has some pain although much improved Passing flatus Physical Exam Vital Signs: Vital Signs: Last Vital Signs Temp 99.0 F 10/14/21 11:22 Pulse 80 10/14/21 11:22 Resp 20 10/14/21 11:22 BP 114/58 L 10/14/21 11:22 Pulse Ox 93 10/14/21 11:22 BMI result Body Mass Index 34.7 Const: General: comfortable and no acute distress Resp: Effort & Inspection: normal respiratory effort Cardio: Rhythm: regular rhythm GI: Other: Soft, no guarding rebound, nondistended, mildly tender left lower quadrant Objective Data Active Medications Acetaminophen (Acetaminophen 325 Mg Tablet) 650 mg PO Q6H PRN PRN Reason: Pain, Mild (Pain Scale 1-3) Last Admin: 10/13/21 22:51 Dose: 650 mg Documented by: MEGAN Enoxaparin Sodium (Enoxaparin Sodium 40 Mg/0.4 Ml Syringe) 40 mg SUBCUT Q24H [facility] Last Admin: 10/14/21 08:55 Dose: 40 mg Documented by: ELANA Hydromorphone HCl (Hydromorphone Hcl 1 Mg/Ml Syringe) 0.5 mg IVPUSH Q4H PRN; Protocol PRN Reason: Pain, Severe (Pain Scale 7-10) Last Admin: 10/13/21 11:07 Dose: 0.5 mg Documented by: WILTON Ceftriaxone Sodium 1 gm/ (Sodium Chloride) 50 mls @ 100 mls/hr IV Q24H [facility] Last Infusion: 10/14/21 04:09 Dose: 0 mls/hr Documented by: MAGUI Metronidazole (Flagyl) 500 mg in 100 mls @ 100 mls/hr IV Q8H [facility] Last Infusion: 10/14/21 12:37 Dose: 0 mls/hr Documented by: ELANA Dextrose/Lactated Ringer's (D5lr) 1,000 mls @ 100 mls/hr IVCONT .Q10H [facility] Last Admin: 10/14/21 09:07 Dose: 100 mls/hr Documented by: ELANA Melatonin (Melatonin 3 Mg Tablet) 6 mg PO BEDTIME PRN PRN Reason: Insomnia Ondansetron HCl (Ondansetron Hcl 4 Mg/2 Ml Vial) 4 mg IVPUSH Q6H PRN PRN Reason: Nausea and Vomiting Last Admin: 10/13/21 07:58 Dose: 4 mg Documented by: WILTON Hutchinsonna (Sennosides 8.6 Mg Tablet) 17.2 mg PO BEDTIME PRN PRN Reason: Constipation Sodium Chloride (0.9 % Sodium Chloride Flush 3 Ml Syringe) 3 ml IVFLUSH QSHIFT [facility] Last Admin: 10/14/21 08:55 Dose: 3 ml Documented by: ELANA Labs CBC & Chem 7: 10/13/21 05:38 10/13/21 05:38 Labs: Laboratory Results - last 24 hr 10/13/21 10/13/21 06:38 06:38 Stool Leukocytes, Qual NEGATIVE C. difficile Tox B Gene NEGATIVE Microbiology Microbiology Results: Microbiology 10/13/21 01:19 Blood Culture - Preliminary Blood - Venous No growth after 24 hours. 10/13/21 01:19 Blood Culture - Preliminary Blood - Venous No growth after 24 hours. Procedures Date of Service Date of Service: 10/14/21 Progress Note: A&P Assessment and plan (1) Acute diverticulitis: Status: Acute Plan Improving well Advance diet slowly as tolerated Antibiotics Abdomen remains benign and soft Nonseptic looking I also emphasized to her that she should have a colonoscopy down the line as an outpatient Fall Risk Details Current Medications: Current Medications Acetaminophen (Acetaminophen 325 Mg Tablet) 650 mg PO Q6H PRN PRN Reason: Pain, Mild (Pain Scale 1-3) Last Admin: 10/13/21 22:51 Dose: 650 mg Documented by: Enoxaparin Sodium (Enoxaparin Sodium 40 Mg/0.4 Ml Syringe) 40 mg SUBCUT Q24H [facility] Last Admin: 10/14/21 08:55 Dose: 40 mg Documented by: Hydromorphone HCl (Hydromorphone Hcl 1 Mg/Ml Syringe) 0.5 mg IVPUSH Q4H PRN; Protocol PRN Reason: Pain, Severe (Pain Scale 7-10) Last Admin: 10/13/21 11:07 Dose: 0.5 mg Documented by: Ceftriaxone Sodium 1 gm/ (Sodium Chloride) 50 mls @ 100 mls/hr IV Q24H [facility] Last Infusion: 10/14/21 04:09 Dose: Infused Documented by: Metronidazole (Flagyl) 500 mg in 100 mls @ 100 mls/hr IV Q8H [facility] Last Infusion: 10/14/21 12:37 Dose: Infused Documented by: Dextrose/Lactated Ringer's (D5lr) 1,000 mls @ 100 mls/hr IVCONT .Q10H [facility] Last Admin: 10/14/21 09:07 Dose: 100 mls/hr Documented by: Melatonin (Melatonin 3 Mg Tablet) 6 mg PO BEDTIME PRN PRN Reason: Insomnia Ondansetron HCl (Ondansetron Hcl 4 Mg/2 Ml Vial) 4 mg IVPUSH Q6H PRN PRN Reason: Nausea and Vomiting Last Admin: 10/13/21 07:58 Dose: 4 mg Documented by: Senna (Sennosides 8.6 Mg Tablet) 17.2 mg PO BEDTIME PRN PRN Reason: Constipation Sodium Chloride (0.9 % Sodium Chloride Flush 3 Ml Syringe) 3 ml IVFLUSH QSHIFT [facility] Last Admin: 10/14/21 08:55 Dose: 3 ml Documented by: Time Spent With Patient Time: Total time spent is greater than 50% in coordination of care (as documented) at patient's floor/unit and/or counseling patient: Quality Stroke Does the patient have a stroke diagnosis?: No VTE Prior VTE?: No VTE Risk Level:: Medical - moderate - high VTE Device Contraindication: Treatment Not Indicated VTE Drug Contraindication: N/A - Med Ordered
--- NOTE | 2021-10-14 16:12 | HO.PM.IMPN ---
Subjective Subjective Date of Service: 10/14/21 Interval History: complaining of persistent abdominal pain, nausea, took milk of Mag this morning had a small BM no fevers no chills, feels frustrated for not getting better with ongoing symptoms for last 2-3 weeks. Review of Systems [employer] no headache no dizziness CVS no chest pain, no palpitation respiratory no cough, no sputum production Review of Systems: Yes all other systems are reviewed and are negative Physical Exam Vital Signs: Vital Signs: Last Vital Signs Temp 98.6 F 10/14/21 15:41 Pulse 79 10/14/21 15:41 Resp 16 10/14/21 15:41 BP 126/70 10/14/21 15:41 Pulse Ox 95 10/14/21 15:41 BMI result Body Mass Index 34.7 Const: Other: General patient resting comfortably in no acute distress. Neck supple no JVD. CVS regular rate rhythm, Respiratory lungs clear to auscultation, no respiratory distress, no wheeze, no rhonchi. Gastrointestinal abdomen soft, mild tenderness to deep palpation left lower quadrant, bowel sounds audible, no guarding , no rigidity. Extremities no edema. Neuro nonfocal , speech clear. Skin no rash psych appropriate affect Objective Data Active Medications Acetaminophen (Acetaminophen 325 Mg Tablet) 650 mg PO Q6H PRN PRN Reason: Pain, Mild (Pain Scale 1-3) Last Admin: 10/13/21 22:51 Dose: 650 mg Documented by: MEGAN Enoxaparin Sodium (Enoxaparin Sodium 40 Mg/0.4 Ml Syringe) 40 mg SUBCUT Q24H [facility] Last Admin: 10/14/21 08:55 Dose: 40 mg Documented by: ELANA Hydromorphone HCl (Hydromorphone Hcl 1 Mg/Ml Syringe) 0.5 mg IVPUSH Q4H PRN; Protocol PRN Reason: Pain, Severe (Pain Scale 7-10) Last Admin: 10/13/21 11:07 Dose: 0.5 mg Documented by: WILTON Ceftriaxone Sodium 1 gm/ (Sodium Chloride) 50 mls @ 100 mls/hr IV Q24H [facility] Last Infusion: 10/14/21 04:09 Dose: 0 mls/hr Documented by: MAGUI Metronidazole (Flagyl) 500 mg in 100 mls @ 100 mls/hr IV Q8H [facility] Last Infusion: 10/14/21 12:37 Dose: 0 mls/hr Documented by: ELANA Dextrose/Lactated Ringer's (D5lr) 1,000 mls @ 100 mls/hr IVCONT .Q10H [facility] Last Admin: 10/14/21 09:07 Dose: 100 mls/hr Documented by: ELANA Melatonin (Melatonin 3 Mg Tablet) 6 mg PO BEDTIME PRN PRN Reason: Insomnia Ondansetron HCl (Ondansetron Hcl 4 Mg/2 Ml Vial) 4 mg IVPUSH Q6H PRN PRN Reason: Nausea and Vomiting Last Admin: 10/13/21 07:58 Dose: 4 mg Documented by: WILTON Senna (Sennosides 8.6 Mg Tablet) 17.2 mg PO BEDTIME PRN PRN Reason: Constipation Sodium Chloride (0.9 % Sodium Chloride Flush 3 Ml Syringe) 3 ml IVFLUSH QSHIFT [facility] Last Admin: 10/14/21 16:08 Dose: Not Given Documented by: MEGAN Non-Admin Reason: IV Running Labs CBC & Chem 7: 10/13/21 05:38 10/13/21 05:38 Labs: Laboratory Results - last 24 hr 10/13/21 10/13/21 06:38 06:38 Stool Leukocytes, Qual NEGATIVE C. difficile Tox B Gene NEGATIVE Microbiology Microbiology Results: Microbiology 10/13/21 01:19 Blood Culture - Preliminary Blood - Venous No growth after 24 hours. 10/13/21 01:19 Blood Culture - Preliminary Blood - Venous No growth after 24 hours. Assessment and Plan (1) Acute diverticulitis: Status: Acute (2) Abdominal pain: Status: Acute Plan 51-year-old female with a past medical history of obesity, vitamin-D deficiency, degenerative spine disease, history of C diff infection, history of diverticulitis presented to the hospital today with a chief complaint of abdominal pain,noted to have mild active diverticulitis.? Admitted for further management.? acute mild active diverticulitis no fevers, normal WBC on IV ceftriaxone and Flagyl day 2.? change Flagyl dose to b.i.d. question causing nausea will advance diet, persistent mild abdominal pain but abdomen soft, DC IV fluid, minimize narcotics place on Lidoderm patch, give simethicone and bentyl C diff negative./ stool culture? pending seen by surgery they agree with above treatment, will need outpatient colonoscopy recommend out of bed to chair and ambulation Degenerative spine disease no acute symptoms, follow clinical course DVT prophylaxis:? Lovenox Code status:? Full code patient will need continued inpatient stay since currently on clear liquid diet with persistent abdominal pain on IV antibiotic for diverticulitis not responded to oral antibiotics. Quality Stroke Does the patient have a stroke diagnosis?: No VTE Prior VTE?: No VTE Risk Level:: Medical - moderate - high VTE Device Contraindication: Treatment Not Indicated VTE Drug Contraindication: N/A - Med Ordered
[2021-10-14] MEDS: Sennosides 8.6 MG TABLET 17.2 MG PO (22:47)
[2021-10-14] MEDS: Dicyclomine HCl 10 MG CAPSULE PO (22:47)
[2021-10-15] MEDS: 0.9 % Sodium Chloride Flush 3 ML SYRINGE IVFLUSH ×2 (00:27→08:39)
[2021-10-15 03:29] VITALS: BP 119/72; PULSE 72; RESP 18; TEMP 37.7; O2SAT 95
[2021-10-15] MEDS: cefTRIAXone sodium 1 GM in 0.9 % Sodium Chloride 50 ML IV (04:06)
[2021-10-15 07:36] VITALS: BP 142/65; PULSE 79; RESP 19; TEMP 36.7; O2SAT 94
--- NOTE | 2021-10-15 08:22 | PM.PNGS ---
Subjective Subjective Date of Service: 10/15/21 Interval history: Feels much better Minimal pain Tolerating diet well Physical Exam Vital Signs: Vital Signs: Last Vital Signs Temp 98.1 F 10/15/21 07:36 Pulse 79 10/15/21 07:36 Resp 19 10/15/21 07:36 BP 142/65 H 10/15/21 07:36 Pulse Ox 94 10/15/21 07:36 BMI result Body Mass Index 34.7 Const: General: comfortable and no acute distress Resp: Effort & Inspection: normal respiratory effort GI: Palpation (GI): Soft to palpation, not firm, nontender and no guarding Objective Data Active Medications Acetaminophen (Acetaminophen 325 Mg Tablet) 650 mg PO Q6H PRN PRN Reason: Pain, Mild (Pain Scale 1-3) Last Admin: 10/13/21 22:51 Dose: 650 mg Documented by: MEGAN Dicyclomine HCl (Dicyclomine Hcl 10 Mg Capsule) 10 mg PO TIDAC PRN PRN Reason: abdominal pain Last Admin: 10/14/21 22:47 Dose: 10 mg Documented by: MEGAN Enoxaparin Sodium (Enoxaparin Sodium 40 Mg/0.4 Ml Syringe) 40 mg SUBCUT Q24H [facility] Last Admin: 10/14/21 08:55 Dose: 40 mg Documented by: ELANA Ceftriaxone Sodium 1 gm/ (Sodium Chloride) 50 mls @ 100 mls/hr IV Q24H [facility] Last Infusion: 10/15/21 04:45 Dose: 0 mls/hr Documented by: REDD Metronidazole (Flagyl) 500 mg in 100 mls @ 100 mls/hr IV Q12H [facility] Last Infusion: 10/15/21 00:30 Dose: 0 mls/hr Documented by: REDD Ketorolac Tromethamine (Ketorolac Tromethamine 15 Mg/Ml Vial) 15 mg IVPUSH Q6H PRN PRN Reason: abdominal pain Melatonin (Melatonin 3 Mg Tablet) 6 mg PO BEDTIME PRN PRN Reason: Insomnia Ondansetron HCl (Ondansetron Hcl 4 Mg/2 Ml Vial) 4 mg IVPUSH Q6H PRN PRN Reason: Nausea and Vomiting Last Admin: 10/13/21 07:58 Dose: 4 mg Documented by: HO.CAMJA Senna (Sennosides 8.6 Mg Tablet) 17.2 mg PO BEDTIME PRN PRN Reason: Constipation Last Admin: 10/14/21 22:47 Dose: 17.2 mg Documented by: MEGAN Simethicone (Simethicone 40 Mg/0.6 Ml 15 Ml Drops.Susp) 40 mg PO QID PRN PRN Reason: gas pain Sodium Chloride (0.9 % Sodium Chloride Flush 3 Ml Syringe) 3 ml IVFLUSH QSHIFT [facility] Last Admin: 10/15/21 00:27 Dose: 3 ml Documented by: REDD Labs CBC & Chem 7: 10/13/21 05:38 10/13/21 05:38 Labs: Laboratory Results - last 24 hr 10/13/21 06:38 C. difficile Tox B Gene NEGATIVE Microbiology Microbiology Results: Microbiology 10/13/21 06:38 Stool Culture - Preliminary Stool Culture in progress. 10/13/21 01:19 Blood Culture - Preliminary Blood - Venous No growth after 48 hours. 10/13/21 01:19 Blood Culture - Preliminary Blood - Venous No growth after 48 hours. Procedures Date of Service Date of Service: 10/15/21 Progress Note: A&P Assessment and plan (1) Acute diverticulitis: Status: Acute Assessment and Plan: Much improved Abdomen remained soft and benign Okay to DC home Oral antibiotics Advised colonoscopy as an outpatient Fall Risk Details Current Medications: Current Medications Acetaminophen (Acetaminophen 325 Mg Tablet) 650 mg PO Q6H PRN PRN Reason: Pain, Mild (Pain Scale 1-3) Last Admin: 10/13/21 22:51 Dose: 650 mg Documented by: Dicyclomine HCl (Dicyclomine Hcl 10 Mg Capsule) 10 mg PO TIDAC PRN PRN Reason: abdominal pain Last Admin: 10/14/21 22:47 Dose: 10 mg Documented by: Enoxaparin Sodium (Enoxaparin Sodium 40 Mg/0.4 Ml Syringe) 40 mg SUBCUT Q24H [facility] Last Admin: 10/14/21 08:55 Dose: 40 mg Documented by: Ceftriaxone Sodium 1 gm/ (Sodium Chloride) 50 mls @ 100 mls/hr IV Q24H [facility] Last Infusion: 10/15/21 04:45 Dose: Infused Documented by: Metronidazole (Flagyl) 500 mg in 100 mls @ 100 mls/hr IV Q12H [facility] Last Infusion: 10/15/21 00:30 Dose: Infused Documented by: Ketorolac Tromethamine (Ketorolac Tromethamine 15 Mg/Ml Vial) 15 mg IVPUSH Q6H PRN PRN Reason: abdominal pain Melatonin (Melatonin 3 Mg Tablet) 6 mg PO BEDTIME PRN PRN Reason: Insomnia Ondansetron HCl (Ondansetron Hcl 4 Mg/2 Ml Vial) 4 mg IVPUSH Q6H PRN PRN Reason: Nausea and Vomiting Last Admin: 10/13/21 07:58 Dose: 4 mg Documented by: Senna (Sennosides 8.6 Mg Tablet) 17.2 mg PO BEDTIME PRN PRN Reason: Constipation Last Admin: 10/14/21 22:47 Dose: 17.2 mg Documented by: Simethicone (Simethicone 40 Mg/0.6 Ml 15 Ml Drops.Susp) 40 mg PO QID PRN PRN Reason: gas pain Sodium Chloride (0.9 % Sodium Chloride Flush 3 Ml Syringe) 3 ml IVFLUSH QSHIFT [facility] Last Admin: 10/15/21 00:27 Dose: 3 ml Documented by: Time Spent With Patient Time: Total time spent is greater than 50% in coordination of care (as documented) at patient's floor/unit and/or counseling patient: Quality Stroke Does the patient have a stroke diagnosis?: No VTE Prior VTE?: No VTE Risk Level:: Medical - moderate - high VTE Device Contraindication: Treatment Not Indicated VTE Drug Contraindication: N/A - Med Ordered
[2021-10-15] MEDS: Enoxaparin Sodium 40 MG/0.4 ML SYRINGE SUBCUT (08:38)
--- NOTE | 2021-10-15 10:19 | PM.DS ---
DS: Providers Provider Date of Service: 10/15/21 Date of admission: 10/13/21 02:22 Primary care physician: Aldo Liang MD Consults: 10/13/21 02:21 Consult to General Surgery Routine Consulting Provider: Edmund Oglesby Reason for consultation: rec Diverticulitis DS: Diagnosis Discharge Diagnosis (1) Acute diverticulitis: Status: Acute DS: Summary Hospital Course Hospital Course: Chief Complaint: Abdominal pain 51-year-old female with a past medical history of obesity, vitamin-D deficiency, degenerative spine disease, history of C diff infection, history of diverticulitis presented to the hospital today with a chief complaint of abdominal pain.? Patient reported that about 2 weeks ago she was diagnosed with diverticulitis and has finished outpatient antibiotics with Cipro and Flagyl; finished a course of antibioticson last wednesday; but she continued to have the diffuse abdominal discomfort.? Associated with nausea and diarrhea; denies any fevers and chills.? Mentioned that given continued symptoms she presented to the ER yesterday and had CT abdomen done,that showed mild inflammation, subsequently discharged home.? After she left home she still has abdominal pain hence presented back again to the hospital.? Denies any blood in the stool or vomitus.? Denies any concerns for food poisoning.? Denies any chest pain or palpitations.? Review of all other systems is negative except mentioned above ER course: Per ER team patient noted to have diffuse abdominal discomfort; concerning for recurrent diverticulitis, requiring IV antibiotics; admitted to the hospital for further management. hospital course 51-year-old female with a past medical history of obesity, vitamin-D deficiency, degenerative spine disease, history of C diff infection, history of diverticulitis presented to the hospital today with a chief complaint of abdominal pain,noted to have mild active diverticulitis acute mild active diverticulitis, patient admitted to medical floor treated with IV ceftriaxone and Flagyl , diet gradually advanced, she is tolerating diet well ,patient also evaluated by General surgery they recommend outpatient colonoscopy, patient remains afebrile her WBC count is normal, stool culture is pending, and C diff is negative, since she seems to be hemodynamically stable she is being discharged home with recommendation to take soft diet and to have outpatient follow-up with General surgery in 2-3 weeks for colonoscopy. Degenerative spine disease no acute symptoms recommend Tylenol. Time Spent with Patient Time attestation: Total time spent providing and/or coordinating discharge services: Discharge coordination time: Greater than 30 minutes Quality: Safe Use of Opioids Does Pt have an Active Cancer Diagnosis on the Problem List?: No Quality: Stroke Does the patient have a stroke diagnosis?: No Physical Exam Vital Signs: Vital Signs: Last Vital Signs Temp 98.1 F 10/15/21 07:36 Pulse 79 10/15/21 07:36 Resp 19 10/15/21 07:36 BP 142/65 H 10/15/21 07:36 Pulse Ox 94 10/15/21 07:36 BMI result Body Mass Index 34.7 Const: Other: General patient resting comfortably in no acute distress.? Neck? supple no JVD. CVS? regular rate rhythm, Respiratory lungs clear to auscultation, no respiratory distress, no wheeze, no rhonchi. Gastrointestinal abdomen soft, no tenderness left lower quadrant, bowel sounds audible, no guarding , no rigidity. Extremities no edema. Neuro nonfocal , speech clear. Skin no rash psych appropriate affect DS: Data Data Completed and Pending Labs on day of discharge: Preliminary micro results at discharge 10/13/21 06:38 Stool Culture - Preliminary Stool Culture in progress. 10/13/21 01:19 Blood Culture - Preliminary Blood - Venous No growth after 48 hours. 10/13/21 01:19 Blood Culture - Preliminary Blood - Venous No growth after 48 hours. Discharge Plan Discharge Patient Disposition: Home, Self-Care Discharge Diagnosis: Acute diverticulitis Referrals: Garth,Aldo Huggins MD [Primary Care Provider] - 1 Week Discharge Medications: New cefuroxime axetil 250 mg tablet 250 mg PO BID Qty: 6 0RF metronidazole 500 mg tablet 500 mg PO BID Qty: 6 0RF Continued Align 10.5 mg (10 million cell) Tablet,Chewable 10.5 mg PO DAILY 0RF Discontinued ibuprofen [Advil] 200 mg tablet 200 mg PO Q6H PRN (Reason: Pain (Scale Score 4-6)) 0RF Discharge Orders: Discharge Order (Routine); Ordered 10/15/21 Ordered By: Darian Mendez Diet: advance to usual diet Activity on Discharge: As tolerated Stand Alone Forms: Patient Portal Discharge page Care Plan Goals: acute diverticulitis, abdominal pain improved take by mouth antibiotics for 3 more days take soft diet for next few days Health Concerns: as above Plan of Treatment: follow-up with General surgery Dr. Oglesby call for appointment in 2-3 weeks for colonoscopy Assessment: as per discharge summary
[2021-10-15] MEDS: metroNIDAZOLE/NS 500 MG/100 ML PIGGYBACK 100 MG IV (10:37)
[2021-10-15] MEDS: Dicyclomine HCl 10 MG CAPSULE PO (11:25)
--- NOTE | 2021-10-15 12:03 | MHC.CM.PN ---
Female 51 DX Diverticulitis She is discharged home today. She has arranged for transportation home. No home care services are required or ordered.
== END 2021-10-15 11:45 | disposition home or self-care (01) | DRG 244 ==
LOC: HO.ED 10-13 02:30 → HO.EDOVER 10-13 03:01 → HO.IMC 10-13 14:34
PROVIDERS: Admitting Provider Hospitalist; Emergency Provider Emergency Medicine Emergency Medical Services; PCP Internal Medicine; Visit Provider Hospitalist
DX: K57.32 Diverticulitis of large intestine without perforation or abscess without bleeding (principal); Z20.822 Contact with and (suspected) exposure to COVID-19; Z79.899 Other long term (current) drug therapy
CPT/HCPCS: 36415; 80048; 80053; 81003; 83605; 83690; 85025; 85652; 86140; 87040; 87045; 87046; 87493; 87635; 89055; 96361; 96374; 96375; 99285; J0696; J1170; J1650; J1885; J2270; J2405; J2543

== ENCOUNTER 2021-12-10 15:53 | Outpatient (REF) | payer OTHER, SELFPAY ==
--- NOTE | ~2021-12-10 | XR_ITS ---
EXAMINATION: XR KNEE, LEFT CLINICAL INFORMATION: Pain COMPARISON: Previous x-ray November 2018 TECHNIQUE: Four views of the left knee. FINDINGS: Bone alignment is normal. No fracture or dislocation is seen. There is mild arthritis at the medial femoral tibial and patellofemoral joints. There are small osteophytes at the quadriceps tendon insertion to the patella and patellar tendon origin and insertion. There is a small joint effusion. XR/XR knee LT 4V IMPRESSION: Degenerative changes.
== END 2021-12-10 15:54 | disposition home or self-care (01) ==
LOC: HO.XRAY 15:53
PROVIDERS: PCP Internal Medicine; Visit Provider Internal Medicine
DX: Z01.818 Encounter for other preprocedural examination (principal); K57.92 Diverticulitis of intestine, part unspecified, without perforation or abscess without bleeding
CPT/HCPCS: 73564

== ENCOUNTER 2022-03-13 07:13 | Day surgery (SDC) | payer OTHER, SELFPAY ==
[2022-01-30 14:36] VITALS: BMI 36.1
--- NOTE | 2022-03-11 15:23 | P.CONAN_ITS ---
Documented by User: Mame Navarro NP 03/11/22 15:24 HPI - Anesthesia Eval Consult details Narrative: 51yo F for Colonoscopy PMFSH Active Problems Active Problems: All Active Problems (Updated 12/03/21 @ 15:24 by Aldo Liang MD) Knee pain, left (Acute) Generalized pruritus (Acute) Diverticulitis (Acute) Acute diverticulitis (Acute) Rash (Acute) Annual physical exam (Acute) Tear of medial meniscus of right knee (Acute) Unilateral post-traumatic osteoarthritis, right knee (Acute) Postmenopausal (Acute) Anserine bursitis (Acute) Tobacco abuse (Acute) Obesity (BMI 30-39.9) (Acute) Compartment syndrome of lower extremity (Acute) Effusion of ankle (Acute) Neuropathy (Acute) Past Medical History Medical History Breast cancer screening other than mammogram Clostridium difficile diarrhea Degenerative disc disease at L5-S1 level Diverticulitis Neuropathy Obesity (BMI 30-39.9) Tinnitus Tobacco abuse Vitamin D deficiency Family History Family History Mother Breast cancer Asthma Father No problems noted. Maternal Aunt Colon cancer Brother Schizophrenia Other Mental health disorder Surgical History Surgical History H/O hand surgery Social History Social History Household Members: Family Housing: House Are you a primary adult day care worker to a significant other at home: No Do you presently have visiting nurse or other home services: No Alcohol intake: current Alcohol intake frequency: a few times a week Alcohol type: beer and wine Patient Tobacco Use Status: Current everyday Tobacco user Tobacco use type: Cigarette Cigarette Packs Per Day: 0.5 Cigarettes Per Day: 10 Years Smoked: 30 e-Cigarette/Vaping Use: Never Used Second Hand Smoke Exposure: Yes Use of substances other than those prescribed or required for medical reasons: No Have you been hit, kicked, punched, or otherwise hurt by someone within the past year? 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 [place] Cognitive needs: No Hearing needs: No Vision needs: Yes (glasses) Meds Allergies Allergy/AdvReac Type Severity Reaction Status Date / Time No Known Allergies Allergy Verified 12/10/21 16:00 [No Known Allergies*] Home Medications Medication Instructions Recorded Confirmed Last Taken Type Bifidobacterium infantis 10.5 mg 10.5 mg PO DAILY 10/13/21 01/30/22 Unknown History (10 million cell) chewable tablet (Align) fexofenadine 60 mg tablet (Tiffanie 60 mg PO Q12H 12/10/21 01/30/22 Unknown History Allergy) Exam Exam Date and Time: March 11, 2022 1523 Height,Weight and Vital Signs: Height 5 ft Weight 83.915 kg Pertinent Lab Results Pertinent Lab Results: Laboratory Tests 10/13/21 10/13/21 05:38 05:38 WBC 7.2 Hgb 12.4 Hct 37.4 Plt Count 251 Sodium 139 Potassium 3.5 Chloride 108 Carbon Dioxide 25 BUN 4 L Creatinine 0.66 Assessment and Plan Assessment Anesthesia Assessment: Chart Reviewed Documented by User: Luis A Yost MD 03/13/22 08:26 [facility] Past Medical History Medical History Breast cancer screening other than mammogram Clostridium difficile diarrhea Degenerative disc disease at L5-S1 level Diverticulitis Neuropathy Obesity (BMI 30-39.9) Tinnitus Tobacco abuse Vitamin D deficiency Family History Family History Mother Breast cancer Asthma Father No problems noted. Maternal Aunt Colon cancer Brother Schizophrenia Other Mental health disorder Family history of problems with anesthesia: No Surgical History Surgical History H/O hand surgery History of Problems with Anesthesia: No Social History Social History Household Members: Family Housing: House Are you a primary adult day care worker to a significant other at home: No Do you presently have visiting nurse or other home services: No Alcohol intake: current Alcohol intake frequency: a few times a week Alcohol type: beer and wine Patient Tobacco Use Status: Current everyday Tobacco user Tobacco use type: Cigarette Cigarette Packs Per Day: 0.5 Cigarettes Per Day: 10 Years Smoked: 30 e-Cigarette/Vaping Use: Never Used Second Hand Smoke Exposure: Yes Use of substances other than those prescribed or required for medical reasons: No Have you been hit, kicked, punched, or otherwise hurt by someone within the past year? 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 Cognitive needs: No Hearing needs: No Vision needs: Yes (glasses) Meds Allergies Allergy/AdvReac Type Severity Reaction Status Date / Time No Known Allergies Allergy Verified 12/10/21 16:00 [No Known Allergies*] Home Medications Medication Instructions Recorded Confirmed Last Taken Type Bifidobacterium infantis 10.5 mg 10.5 mg PO DAILY 10/13/21 01/30/22 Unknown History (10 million cell) chewable tablet (Align) fexofenadine 60 mg tablet (Tiffanie 60 mg PO Q12H 12/10/21 01/30/22 Unknown History Allergy) Exam Airway Mallampati Class: II TM Dist: >3cm Partial: Upper Loose/Missing/Broken Teeth: No Heart: ok Lungs: ok Assessment and Plan Final Anesthetic Review Family History of Problems with Anesthesia: No History of Problems with Anesthesia: No NPO: Yes ASA Class: II Final Preanesthetic Review: No Changes in Pt Med Stat, Meds/Allgs Chart Reviewed, Consent Obtained/Reviewed and Anes Risks/Benef Reviewed Patient Risk: Intermediate Procedure Risk: Low Anesthetic Plan Anesthetic Plan: MAC: and Agree w/ Assess. and Plan Disposition: Standard PACU
[2022-03-13 08:01] VITALS: BP 120/56; PULSE 80; RESP 15; TEMP 36.8; O2SAT 96
[2022-03-13] MEDS: Lactated Ringers 1,000 ML 100 ML IVCONT (08:05)
--- NOTE | 2022-03-13 08:19 | MHC.SHP ---
Pre-Procedural Eval Section A Date of Service: 03/13/22 Section B Chief Complaint: diverticulitis Details of Present Illness: had history of diverticulitis in October,. No previous colonoscopy Relevant Family History (Specify if Yes): No Relevant Social History: None Present Medications: see Short Stay Collaborative assessment Medical History: Significant History ( arthritis, obesity) Allergies: Allergies Allergy/AdvReac Type Severity Reaction Status Date / Time No Known Allergies Allergy Verified 12/10/21 16:00 [No Known Allergies*] Review of Systems Sugical H&P ROS: Negative: Constitution, Cardiovascular, Respiratory, Neurological, Psychiatric, Hem-Onc, Allergic/Immunologic, Gastrointestinal, Genitourinary, Musculoskeletal, Integumentary, Endocrine and Eyes/Ears/Nose/Throat Exam Surgical H&P Exam: Normal: HEENT, Normal: Heart, Normal: Lungs, Normal: Extremities, Normal: Abdomen, Normal: Skin and Normal: Neurological Plan Diagnosis/Plan: Unchanged I have reviewed the history and physical and performed a pertinent physical examination on my patient. No changes have occurred unless specified.
--- NOTE | 2022-03-13 09:03 | P.OP_ITS ---
Operative Note Operative Note Date of Service: 03/13/22 Narrative: Preop diagnosis: recent diverticulitis; Screening for colon cancer Postop diagnosis: 1. Occasional diverticuli in the sigmoid 2. polyp, about mm, relatively flat, at level 10 cm, removed with cold forceps Procedure: Copy with polypectomy using cold forceps Surgeon: Edmund Oglesby MD Patient is a 51-year-old female who was admitted for acute diverticulitis last October,. She had never had any colonoscopy in the past so I recommended for her to undergo a colonoscopy to rule out any other pathology. She understood the technique of colonoscopy. She was aware of the risks, benefits, and alternatives She was brought to the operating room. She was placed in left lateral decubitus position under monitored anesthesia care. A full digital rectal exam was done. there were no palpable anal lesions. The tip of the Olympus colonoscope was gently introduced through the anal orifice advanced with insufflation all the cecum. The cecum was intubated. the cecal mucosa was unr emarkable. The scope was gradually withdrawn with careful examination of the entire colonic mucosa being done with scope withdrawal. The patient had good bowel prep so it was unlikely that any lesion been missed. nix have been missed. There was note of occasional diverticuli in the sigmoid. At level 18 cm, there was note of a relatively flat polyp, about 10 mm in size. This was removed using multiple biopsy cold forceps The rest of the rectum and the anal canal including the shell for unremarkable. The scope was then withdrawn completely with desufflation The patient tolerated procedure well. There were no complication noted. In view of the relatively flat polyp, I will probably recommend another colonoscopy within the next 3 years depending on the path report.
[2022-03-13 09:09] VITALS: BP 119/62; PULSE 72; RESP 16; TEMP 36.1; O2SAT 93
[2022-03-13 09:24] VITALS: BP 125/66; PULSE 67; RESP 16; O2SAT 99
[2022-03-13 09:41] VITALS: BP 122/69; PULSE 73; RESP 16; TEMP 36.1; O2SAT 98
== END 2022-03-13 10:13 | disposition home or self-care (01) ==
PROVIDERS: PCP Internal Medicine; Visit Provider Surgery
PROC: 0DJD8ZZ Inspection of Lower Intestinal Tract, Via Natural or Artificial Opening Endoscopic (ICD-10-PCS; CPT 45378; principal; 2022-03-13 08:20)
DX: K57.30 Diverticulosis of large intestine without perforation or abscess without bleeding (principal); K63.5 Polyp of colon; E55.9 Vitamin D deficiency, unspecified; G62.9 Polyneuropathy, unspecified; Z79.899 Other long term (current) drug therapy; F17.210 Nicotine dependence, cigarettes, uncomplicated; E66.9 Obesity, unspecified; Z68.36 Body mass index [BMI] 36.0-36.9, adult
CPT/HCPCS: 45380; 88305

== ENCOUNTER 2022-04-24 14:19 | Outpatient (REF) | payer OTHER, SELFPAY ==
--- NOTE | ~2022-04-24 | MM_ITS ---
EXAMINATION: MM SCREENING DIGITAL BREAST TOMOSYNTHESIS, BILATERAL CLINICAL INFORMATION: Screening. Asymptomatic. The lifetime risk of breast cancer based on the Tyrer-Cuzick Model is 16%. COMPARISON: Mammography: 04/18/2021, 12/14/2018, 02/24/2017 TECHNIQUE: Digital breast tomosynthesis is performed in both the craniocaudal and mediolateral oblique views along with computer-aided detection (CAD). Synthesized 2D images are generated from the tomosynthesis. FINDINGS: There are scattered areas of fibroglandular density (ACR BI-RADS breast composition Category b). There are no significant masses, abnormal calcifications, or other abnormalities. Parenchymal pattern is similar to prior studies. There is no developing density or architectural abnormality. The axilla and skin contours are unremarkable. No significant changes. MM/MM tomosynthesis screening BI IMPRESSION: No mammographic evidence of malignancy. ASSESSMENT: BI-RADS 1: Negative RECOMMENDATION: Routine annual mammography screening. This patient's information was entered into a reminder system with a target due date for their next mammogram.
== END 2022-04-24 14:20 | disposition home or self-care (01) ==
LOC: HO.MAMMO 14:19
PROVIDERS: PCP Internal Medicine; Visit Provider Internal Medicine
DX: Z12.31 Encounter for screening mammogram for malignant neoplasm of breast (principal)
CPT/HCPCS: 77063; 77067

== ENCOUNTER 2022-08-03 10:08 | Outpatient (REF) | payer OTHER, SELFPAY ==
--- NOTE | ~2022-08-03 | XR_ITS ---
EXAMINATION: XR ANKLE, RIGHT CLINICAL INFORMATION: Pain. COMPARISON: None TECHNIQUE: AP, lateral, and mortise views of the right ankle. FINDINGS: Lateral ankle soft tissue swelling. Comminuted fracture of the distal fibular metaphysis, with oblique fracture planes. Minimal distraction/displacement. The fracture planes appear to be superior to the level of the talocrural joint. No additional acute fractures identified. Talar dome appears intact. Prominent plantar and posterior calculus spurring. Anterior calcaneal process and fifth metatarsal base appear intact. XR/XR ankle RT min 3V IMPRESSION: Comminuted distal fibular metaphyseal fracture, with minimal distraction/displacement. Lateral ankle soft tissue swelling.
== END 2022-08-03 10:09 | disposition home or self-care (01) ==
LOC: HO.HMGCX 10:08
PROVIDERS: PCP Internal Medicine; Visit Provider Nurse Practitioner Family
DX: M25.571 Pain in right ankle and joints of right foot (principal)
CPT/HCPCS: 73610

== ENCOUNTER → 2022-08-06 10:22 | Outpatient (BNVA) | payer OTHER, SELFPAY | PROVIDERS: PCP Internal Medicine; Visit Provider Physician Assistant | DX: S82.831A Other fracture of upper and lower end of right fibula, initial encounter for closed fracture (principal) ==

== ENCOUNTER 2022-08-13 11:01 | Outpatient (REF) | payer OTHER, SELFPAY ==
--- NOTE | ~2022-08-13 | XR_ITS ---
EXAMINATION: XR ANKLE, RIGHT CLINICAL INFORMATION: Pain in ankle and joint COMPARISON: X-ray of the right ankle July 2022: TECHNIQUE: AP, lateral, and mortise views of the right ankle. FINDINGS: The spiral minimally displaced fracture of the distal fibula is redemonstrated without change in appearance and alignment. Fracture remains visible. No definite callus Slight decrease in soft tissue swelling. The mortise remains intact. Calcaneal spurs again noted unchanged. XR/XR ankle RT min 3V IMPRESSION: 1. Stable appearance of distal fibular fracture. 2. Slight decrease in soft tissue swelling.
== END 2022-08-13 11:02 | disposition home or self-care (01) ==
LOC: HO.HOSX 11:01
PROVIDERS: Visit Provider Physician Assistant
DX: S82.831A Other fracture of upper and lower end of right fibula, initial encounter for closed fracture (principal)
CPT/HCPCS: 73610

== ENCOUNTER 2022-09-08 16:30 | Outpatient (REF) | payer OTHER, SELFPAY ==
--- NOTE | ~2022-09-08 | XR_ITS ---
EXAMINATION: XR ANKLE, RIGHT CLINICAL INFORMATION: Pain COMPARISON: 08/13/2022 TECHNIQUE: AP, lateral, and mortise views of the right ankle. FINDINGS: Redemonstration of comminuted obliquely oriented fracture of the distal fibula with some osseous bridging suggestive of interval healing. Ankle mortise is preserved. Calcaneal enthesopathy. XR/XR ankle RT min 3V IMPRESSION: Redemonstration of comminuted obliquely oriented fracture of the distal fibula with some osseous bridging suggestive of interval healing.
== END 2022-09-08 16:31 | disposition home or self-care (01) ==
LOC: HO.HOSX 16:30
PROVIDERS: Visit Provider Physician Assistant
DX: S82.831D Other fracture of upper and lower end of right fibula, subsequent encounter for closed fracture with routine healing (principal); G62.9 Polyneuropathy, unspecified; X58.XXXD Exposure to other specified factors, subsequent encounter
CPT/HCPCS: 73610

== ENCOUNTER 2022-10-06 07:56 | Outpatient (REF) | payer OTHER, SELFPAY ==
--- NOTE | ~2022-10-06 | XR_ITS ---
EXAMINATION: XR ANKLE, RIGHT CLINICAL INFORMATION: Pain COMPARISON: Previous x-ray most recent from August 2022 TECHNIQUE: AP, lateral, and mortise views of the right ankle. FINDINGS: There is a healing fracture of the distal shaft of the fibula. Fracture line is still seen. Alignment is unchanged. There is slight interval increase in bony callus formation. No other fracture. Normal ankle mortise. Calcaneal spurs. Increasing osteopenia. Normal soft tissues. XR/XR ankle RT min 3V IMPRESSION: Healing fracture of the distal shaft of the fibula.
== END 2022-10-06 07:57 | disposition home or self-care (01) ==
LOC: HO.HOSX 07:56
PROVIDERS: Visit Provider Physician Assistant
DX: S82.831A Other fracture of upper and lower end of right fibula, initial encounter for closed fracture (principal)
CPT/HCPCS: 73610

== ENCOUNTER → 2022-11-03 15:26 | Outpatient (BNVA) | payer OTHER, SELFPAY | PROVIDERS: PCP Internal Medicine; Visit Provider Physician Assistant | DX: S82.831A Other fracture of upper and lower end of right fibula, initial encounter for closed fracture (principal); X50.1XXA Overexertion from prolonged static or awkward postures, initial encounter; Y93.9 Activity, unspecified; Y92.9 Unspecified place or not applicable; Y99.9 Unspecified external cause status; M54.50 Low back pain, unspecified; M51.37 Other intervertebral disc degeneration, lumbosacral region | CPT/HCPCS: 99212 ==

== ENCOUNTER 2022-11-17 08:17 | Outpatient (REF) | payer OTHER, SELFPAY ==
--- NOTE | ~2022-11-17 | XR_ITS ---
EXAMINATION: XR ANKLE, RIGHT CLINICAL INFORMATION: Pain COMPARISON: Previous x-rays most recent September 2022 TECHNIQUE: AP, lateral, and mortise views of the right ankle. FINDINGS: Healing oblique fracture of the distal fibular shaft. Fracture line appears more indistinct and there is increasing bony callus formation. Alignment is unchanged. No other fracture. Normal ankle mortise. Osteopenia. Calcaneal spurs. XR/XR ankle RT min 3V IMPRESSION: Healing distal fibular shaft fracture.
== END 2022-11-17 08:18 | disposition home or self-care (01) ==
LOC: HO.HOSX 08:17
PROVIDERS: Visit Provider Physician Assistant
DX: S82.831A Other fracture of upper and lower end of right fibula, initial encounter for closed fracture (principal)
CPT/HCPCS: 73610

== ENCOUNTER 2022-12-08 15:00 | Outpatient (RCR) | payer OTHER, SELFPAY ==
--- NOTE | 2022-09-16 16:45 | MHC.PT.EP ---
[facility] [place] Office [place] Office [place] Office [address] Kevon Garrett [address] [phone] F: [phone] F: [phone] F: [phone] F: [phone] Physical Therapy Plan of Care Date of Evaluation: Date of Surgery: n/a Diagnosis: fx of upper and lower end of R fibula Assessment: Patient is a 52 year old female presenting to PT s/p fx of upper and lower end of R fibula sustained 08/02/2022. She presents today with impairments in pain, ankle ROM, balance, gait mechanics, strength. 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 Pt expresses prison goal of returning to PLOF, and is motivated to work towards this in PT. Clinical presentation today is most consistent with signs and sx associated with fx of upper and lower end of R fibula and pt will benefit from skilled PT 2 week x 8 weeks to address the following problems and impairments noted upon evaluation: pain, ankle ROM, balance, gait mechanics, strength. These problems limit the patient with the following functional activities: work, ambulating, ADLs, stair negotiation, bending, lifting. The prescribed treatment plan of care is medically necessary. Co-morbidities of plantar fasciitis, neuropathy were identified and taken into considerations of plan of care. Pt was educated on HEP, role of PT, prognosis, POC. Frequency and Duration: The patient will be seen 2 x week 8 weeks Short Term Goals: Pt will demonstrate improved R ankle ROM in 4 weeks equal B Pt will demonstrate R ankle MMT strength at least 4-/5 in 4 weeks. Pt will demonstrate ability improved hip MMT strength by 1/3 grade in 4 weeks for improved lumbopelvic stability. Jail Goals: Pt will demonstrate improved ankle MMT strength to 5/5 in 6 weeks for improved stability. 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 Pt will demonstrate improved LEFI score by 9 points in 8 weeks for improved functional mobility. Pt will demonstrate ability to ambulate with good mechanics and no boot in 8 weeks for return to PLOF. Pt will demonstrate ability to negotiate stairs with step over step pattern in 8 weeks for improved access to her home. Treatment Plan: Modalities to reduce pain, spasms and effusion. Manual therapy to restore motion and function. Therapeutic exercise to improve strength and flexibility. Neuromuscular re-education for posture and balance. Therapeutic activities to return to functional activities of daily living. Electronically signed by: Kiera Casillas, PT, DPT, ATC Please sign and return to therapist. Thank you for your referral.
--- NOTE | 2022-12-08 15:57 | MHC.PT.DC ---
[facility] [place] Office [place] Office [place] Office [address] Kevon Garrett [address] [phone] F: [phone] F: [phone] F: [phone] F: [phone] Physical Therapy Discharge Report Diagnosis: fx of upper and lower end of R fibula Date of Surgery: n/a Date of Evaluation: 09/16/22 Date of Discharge: 12/08/22 Treatments to Date: 20 Cancellations to Date: 3 No Shows to Date: 0 Discharge Status: Achieved Goals Improved Function Independent with HEP Discharge Summary: 12/08/2022: Today is pt last schedule appointment for her ankle as she would like to transition to treating her low back. Her ankle is still sore but she is demonstrating improvements since start of care. She feels her whole side is affected since this injury and has flared up her back I feel at this time it is appropriate to continue with HEP for the ankle while we transition to her low back as she is independent in that program at this time. Electronically signed by: Kiera Casillas, PT, DPT, ATC Please sign and return to therapist. Thank you for your referral.
== END 2022-12-08 15:57 | disposition home or self-care (01) ==
LOC: HO.PTCHIC 15:00
PROVIDERS: PCP Internal Medicine; Visit Provider Physician Assistant
DX: S82.831A Other fracture of upper and lower end of right fibula, initial encounter for closed fracture (principal)
CPT/HCPCS: 97110; 97112; 97140; 97161; 97530

== ENCOUNTER 2022-12-16 06:11 | Outpatient (REF) | payer OTHER, SELFPAY ==
[2022-12-16 06:22] LABS: MANUAL DIFF FLAG NO
[2022-12-16 07:06] LABS: Basophils Absolute Auto 0.1 X10*3/uL (0.0-0.2); Basophils Percent Auto 1.3 % (0-2); Eosinophils Absolute Auto 0.2 X10*3/uL (0.0-0.4); Hemoglobin 14.7 g/dl (12.0-16.0); Imm Gran Abs Auto 0.01 X10*3/uL (0.00-0.03); Imm Gran Pct Auto 0.2 % (0.0-0.4); Lymphocytes Absolute Auto 2.5 X10*3/uL (1.2-4.9); Lymphocytes Percent Auto 41.1 % (20-40); Mean Corpuscular HGB Conc 32.7 g/dl (31.0-35.0); Mean Corpuscular Hemoglobin 30.2 pg (27.0-33.0); Mean Corpuscular Volume 92.6 fL (80.0-98.0); Mean Platelet Volume 10.2 fL (9.4-12.3); Monocytes Absolute Auto 0.5 X10*3/uL (0.1-1.2); Monocytes Percent Auto 7.9 % (2-11); Neutrophils Absolute Auto 2.8 x10*3/uL (2.0-8.3); Neutrophils Percent Auto 45.5 % (45-73); Platelet Count 262 X10*3/uL (160-400); Red Blood Count 4.86 X10*6/uL (4.20-5.50); Red Cell Distribution Width 13.7 % (11.0-16.0)
[2022-12-16 07:27] LABS: Alanine Aminotransferase 20 U/L (0-31); Albumin Level 4.2 g/dL (3.5-5.0); Alkaline Phosphatase 136 U/L (39-117); Anion Gap 11 (12-20); Aspartate Amino Transferase 19 U/L (5-31); Bilirubin Total 0.6 mg/dL (0.0-1.0); Blood Urea Nitrogen 11 mg/dL (9-16); Calcium 9.6 mg/dL (8.4-10.2); Carbon Dioxide 30 mmol/L (22-29); Chloride 106 mmol/L (96-108); Cholesterol 174 mg/dL; Estimated Glomerular Filt Rate > 60; Glucose Random 106 mg/dL (60-115); HDL Cholesterol 43 mg/dL; LDL Cholesterol Calculated 111 mg/dl; Potassium 4.7 mmol/L (3.3-5.1); Sodium 142 mmol/L (135-145); Total Protein 6.7 g/dL (6.5-8.0); Triglycerides 101 mg/dL
[2022-12-16 07:56] LABS: Folate 7.5 ng/mL (> or = 4.0); Free T4 (Free Thyroxine) 0.86 ng/dL (0.71-1.85); Thyroid Stimulating Hormone 2.52 uIU/mL (0.32-4.0); Vitamin B12 377 pg/mL (200-900); Vitamin D 25-OH Total 21.3 ng/mL (>30)
== END 2022-12-16 06:12 | disposition home or self-care (01) ==
LOC: HO.LAB 06:11
PROVIDERS: PCP Internal Medicine; Visit Provider Internal Medicine
DX: E66.9 Obesity, unspecified (principal); E78.00 Pure hypercholesterolemia, unspecified; M81.0 Age-related osteoporosis without current pathological fracture
CPT/HCPCS: 36415; 80053; 80061; 82306; 82607; 82746; 84439; 84443; 85025

== ENCOUNTER 2022-12-29 06:03 | Outpatient (REF) | payer OTHER, SELFPAY ==
--- NOTE | ~2022-12-29 | XR_ITS ---
EXAMINATION: XR HIP, RIGHT CLINICAL INFORMATION: Right hip pain. COMPARISON: 11/27/2020 TECHNIQUE: AP film of the pelvis and 2 views of the right hip. FINDINGS: AP film of the pelvis demonstrates partial sacralization of L5 with transverse processes causing pseudoarticulation with the right iliac crest and questionably about the left iliac crest. There is some sclerosis seen involving the superior aspect of the left sacroiliac joint. Hip joint spaces appear maintained with some superior marginal spurring identified. Calcific trochanteric cyst seen on the left. Two views of the right hip do not demonstrate any evidence of acute fracture or dislocation. Hip joint space is maintained. Mild superior acetabular spurring is seen. No abnormal lytic or sclerotic lesions are identified. No evidence of femoral head collapse. 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
== END 2022-12-29 06:04 | disposition home or self-care (01) ==
LOC: HO.XRAY 06:03
PROVIDERS: PCP Internal Medicine; Visit Provider Nurse Practitioner Family
DX: M25.551 Pain in right hip (principal)
CPT/HCPCS: 73502

== ENCOUNTER → 2023-01-19 07:45 | Outpatient (REF) | payer OTHER, SELFPAY ==
--- NOTE | 2023-01-19 07:47 | CA_ITS ---
Transthoracic Echocardiogram Patient (Last, First, Middle): Dee Tyler L Gender: Female Date of : 1970 Age: 52 Procedure Date: 01/19/2023 Procedure Type: Transthoracic Echocardiogram Location: OP Height: 154.94 cm Weight: 86.18 kg BSA: 1.85 m2 Heart Rate: bpm BP: 132 / 78 mmHg Teletype Clerk: CHRIS Referring MD: Angie MORRISSEY First Cook: Sam Obregon MD Symptoms: R60.0 - Localized edema Study Quality: Fair ECG Rhythm: Sinus Conclusions: - 1. Normal LV systolic and diastolic function 2. Normal cardiac valvular Dopplers 3. Normal right atrial pressures 4. No pericardial effusion Findings Left Ventricle Normal left ventricular size, thickness, and systolic function. The visually estimated ejection fraction is between 60-65%. Diastolic function is normal for age. Peak GLS is -18.7%, within normal limits. Right Ventricle Normal right ventricular cavity size and systolic function. Atria Both atria are normal in size. There is no evidence of interatrial shunt. Aortic Valve Normal aortic valve structure and function. There is no aortic valve stenosis. There is no aortic valve regurgitation. Mitral Valve Normal mitral valve structure and function. There is trace mitral valve regurgitation. There is no mitral valve stenosis. Pulmonic Valve The pulmonic valve is likely normal. There is trace pulmonic valve regurgitation. Tricuspid Valve Normal tricuspid valve structure. Tricuspid regurgitation envelope is inadequate for calculation of right ventricular systolic pressure. Normal right atrial pressure. Great Vessels All visible segments of the aorta are normal in size. The pulmonary artery was not well visualized. Venous The inferior vena cava is normal in size and collapses greater than 50% with inspiration. Pericardium/Pleural There is no evidence of pericardial effusion. Prior Study Comparison No prior study available for comparison. Measurements 2D Linear Measurements IVSd: 1.02 0.6-0.9/0.6-1.0 cm LVIDd: 4.14 3.9-5.3/4.2-5.9 cm LVIDd Index: 2.24 2.4-3.2/2.2-3.1 cm/m2 LVIDs: 2.41 2.0-3.6 cm LVPWd: 1.05 0.7-1.1 cm LA Diam: 3.30 2.7-3.8/3.0-4.0 cm LAIDs Index: 1.78 1.5-2.3 cm/m2 LV Mass: 175.27 67-162/88-224 g LV Mass Index: 94.74 43-95/49-115 g/m2 LVOT Diam: 1.90 3.0+(-)1.3 cm 2D Systolic Function EF 4C: 58.30 >55% EF 2C: 63.60 >55% EF BiP: 62.20 >55% Mitral Valve MV Pk E: 0.93 MV PK A: 0.59 MV Decel Time: 227.00 E/A: 1.60 E'Lateral: 9.79 E'Medial: 9.36 E/E' Med: 9.90 E/E' Lat: 9.40 PHT: 66.00 MVA PHT: 3.33 Decel [place]: 4.08 Aortic Valve AoV Pk Selvin: 1.53 AoV Mn Selvin: 1.02 AoV VTI: 0.35 AoV Pk Grad: 9.00 Aov Mn Grad: 5.00 JENNIFER Cont.VTI: 2.04 LVOT LVOT Pk Selvin: 1.12 LVOT Mn Selvin: 0.74 LVOT VTI: 0.25 LVOT Pk Grad: 5.00 LVOT Mn Grad: 2.00 LVOT Diam: 1.90 LVOT Area: 2.84 Diastolic Function MV Pk E: 0.93 MV Pk A: 0.59 E/A: 1.60 E'Medial: 9.36 E/E' Med: 9.90 E' Laterial: 9.79 E/E' Lat: 9.40 Right Ventricle TAPSE (mm): 26.00 TVS' Selvin: 13.40 Tricuspid Valve RA Press: 3.00 Great Vessels Aorta Sinus of Valsalva: 2.69 2.0-3.5 cm Ao Asc: 2.60 2.1-3.4 cm Updated in Other Vendor System with Status of Final Sam Obregon MD electronically signed on 01/19/2023 1:02:48 PM with status of Final
== END ==
LOC: HO.CARD 07:45
PROVIDERS: PCP Internal Medicine; Visit Provider Nurse Practitioner Family
DX: R60.0 Localized edema (principal)
CPT/HCPCS: 93306; 93356

== ENCOUNTER → 2023-01-19 07:47 | Outpatient (BNV) | payer OTHER, SELFPAY | PROVIDERS: PCP Internal Medicine; Visit Provider Internal Medicine Cardiovascular Disease | DX: R60.0 Localized edema (principal) | CPT/HCPCS: 93306 ==

== ENCOUNTER 2023-01-21 15:00 | Outpatient (RCR) | payer OTHER, SELFPAY ==
--- NOTE | 2022-12-10 15:51 | MHC.PT.EP ---
[facility] [place] Office [place] Office [place] Office [address] Kevon Garrett [address] [phone] F: [phone] F: [phone] F: [phone] F: [phone] Physical Therapy Plan of Care Date of Evaluation: Date of Surgery: n/a Diagnosis: LBP Assessment: Patient is a 52 year old female presenting to PT with complaints of pain in her low back. Pt reports onset of pain began about 2 months ago due to walking in a boot from an ankle fx. She presents today with impairments in pain, lumbar ROM, core strength, hip strength. 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 Pt expresses long-term goal of reducing pain, and is motivated to work towards this in PT. Clinical presentation today is most consistent with signs and sx associated with low back pain and pt will benefit from skilled PT 2 week x 4 weeks to address the following problems and impairments noted upon evaluation: pain, lumbar ROM, core strength, hip strength. These problems limit the patient with the following functional activities: work, ADLs, sitting, ambulating, lifting, bending. The prescribed treatment plan of care is medically necessary. Co-morbidities of plantar fasciitis, neuropathy, recent ankle fx were identified and taken into considerations of plan of care. Pt was educated on HEP, role of PT, prognosis, POC. Frequency and Duration: The patient will be seen 2 x week x 4 weeks Short Term Goals: Pt will demonstrate ability to perform PPT with good core recruitment in 2 weeks. Pt will demonstrate ability to move through lumbar AROM at available range with min to no pain in 2 weeks. Pt will demonstrate improved hip MMT strength by 1/3 grade in 2 weeks for improved lumbopelvic stability. Correction Goals: Pt will demonstrate improved Luis score by 10% in 4 weeks for improved functional mobility. Pt will demonstrate ability to complete ADLs with min to no pain in 4 weeks for improved tolerance to dressing. Pt will demonstrate ability to ambulate with min to no pain in 4 weeks for improved tolerance to work duties. Treatment Plan: Modalities to reduce pain, spasms and effusion. Manual therapy to restore motion and function. Therapeutic exercise to improve strength and flexibility. Neuromuscular re-education for posture and balance. Therapeutic activities to return to functional activities of daily living. Electronically signed by: Kiera Casillas PT, DPT, ATC Please sign and return to therapist. Thank you for your referral.
--- NOTE | 2023-01-21 15:55 | MHC.PT.DC ---
[facility] [place] Office [place] Office [place] Office [address] Garrett [address] [phone] F: [phone] F: [phone] F: [phone] F: [phone] Physical Therapy Discharge Report Diagnosis: LBP Date of Surgery: n/a Date of Evaluation: 12/10/22 Date of Discharge: 01/21/23 Treatments to Date: 10 Cancellations to Date: 0 No Shows to Date: 0 Discharge Status: Recommend MD Follow-up Discharge Summary: 01/21/2023: Pt has unfortunately made minimal to no progress since start of care in terms of her back pain. She has some days that are better than others. She feels the exercises help but the relief is only temporary and there is minimal carry over in managing the pain. At this point we have trialed multiple different interventions in PT all without buttermaker continuous churn success. We have maximized skilled PT at this time and therefore pt to be d/c. Discussed with pt recommendation to follow up with specialist for further management and evaluation of pain and pt is in agreement with this plan. Electronically signed by: Kiera Casillas, PT, DPT, ATC Please sign and return to therapist. Thank you for your referral.
== END 2023-01-21 15:55 | disposition home or self-care (01) ==
LOC: HO.PTCHIC 15:00
PROVIDERS: Visit Provider Physician Assistant
DX: M54.50 Low back pain, unspecified (principal)
CPT/HCPCS: 97110; 97140; 97161

== ENCOUNTER 2023-01-30 17:12 | Emergency (ER) | payer OTHER, SELFPAY ==
--- NOTE | ~2023-01-30 | XR_ITS ---
EXAMINATION: XR CHEST CLINICAL INFORMATION: Shortness of breath. COMPARISON: None available. TECHNIQUE: 2 views of the chest were obtained. FINDINGS: Normal appearance of the cardiomediastinal silhouette. No focal airspace opacity, pleural effusion or pneumothorax. No acute osseous findings. The visualized upper abdomen is within normal limits. XR/XR chest 2V IMPRESSION: No acute cardiopulmonary findings.
[2023-01-30 17:14] VITALS: BP 135/75; PULSE 104; RESP 17; TEMP 37; O2SAT 92; BMI 40.5
--- NOTE | 2023-01-30 17:15 | ED_ITS ---
HPI - URI/Sore Throat General Chief Complaint: Upper Respiratory Symptoms Stated Complaint: chest cold, difficulty breathing Time Seen by Provider: 01/30/23 18:25 Source: patient Mode of arrival: ambulatory Limitations: no limitations History of Present Illness HPI Narrative: Patient is a 52 year old female who presents to emergency department for evaluation of upper respiratory symptoms; congestion, Increasing shortness of breath, productive cough with yellow/green phlegm. Denies fevers or chills. She is a cigarette smoker. Related Data Home Medications Medication Instructions Recorded Confirmed fexofenadine 60 mg tablet (Tiffanie 60 mg PO Q12H 12/10/21 12/18/22 Allergy) Previous Rx's Medication Instructions Recorded ibuprofen 600 mg tablet 600 mg PO Q6H PRN pain #90 tabs 08/03/22 cholecalciferol (vitamin D3) 25 25 mcg PO DAILY #90 tabs 12/18/22 mcg (1,000 unit) tablet albuterol sulfate 90 mcg/actuation 2 puff inhalation Q4-6H PRN 01/30/23 aerosol inhaler shortness of breath or wheezing #6.7 grams azithromycin 250 mg tablet See Rx Instructions PO .COMPLEX #6 01/30/23 tabs prednisone 20 mg tablet 40 mg PO DAILY 4 days #8 tabs 01/30/23 Allergies Allergy/AdvReac Type Severity Reaction Status Date / Time No Known Allergies Allergy Verified 12/18/22 09:52 [No Known Allergies*] Review of Systems Review of Systems: Constitutional: No fever. No chills. No weakness. Positive fatigue. ENT/ Mouth: No Ear Pain, positive Nasal Congestion, positive sore throat, No Rhinorrhea, No Swallowing Difficulty Skin: No rash or itching. Cardiovascular: No chest pain. No palpitations. Respiratory: Positive shortness of breath. Positive cough. Positive sputum production. Gastrointestinal: No nausea. No vomiting. No diarrhea. No abdominal pain. Genitourinary: No burning micturition. No urinary frequency. Neurologic: No headache. No dizziness. No syncope. No numbness or tingling in the extremities. Musculoskeletal: No muscle pain. No back pain. No joint pain or stiffness. Yes all other systems are reviewed and are negative PMFSH Past Medical History Attestation statement: The following information was validated with the patient. Source: old records reviewed Medical History Breast cancer screening other than mammogram Clostridium difficile diarrhea Degenerative disc disease at L5-S1 level Diverticulitis Neuropathy Obesity (BMI 30-39.9) Tinnitus Tobacco abuse Vitamin D deficiency Surgical History H/O hand surgery Family History Family History Mother Breast cancer Asthma Father No problems noted. Maternal Aunt Colon cancer Brother Schizophrenia Other Mental health disorder Social History Social History Household Members: Family Housing: House Are you a primary manager progressive care to a significant other at home: No Do you presently have visiting nurse or other home services: No Alcohol intake: current Alcohol intake frequency: a few times a week Alcohol type: beer and wine Patient Tobacco Use Status: Current everyday Tobacco user Tobacco use type: Cigarette Cigarette Packs Per Day: 0.5 Cigarettes Per Day: 10 Years Smoked: 30 Smoked in Last 30 Days: Yes e-Cigarette/Vaping Use: Never Used Second Hand Smoke Exposure: Yes Use of substances other than those prescribed or required for medical reasons: No Advance Directives: No Advance Directives Information Provided: Yes service: No Current occupational status: employed 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 No acute distress.?Normal affect. Eyes: Pupils equal, round and reactive to light.? ENT: TM normal bilaterally. Pharynx normal.?? Neck: Normal inspection.? Neck supple.??No cervical adenopathy CVS: Heart sounds normal. Normal heart rate and rhythm.? Pulses normal.?? Respiratory: No respiratory distress.? Lung sounds coarse with expiratory wheezing bilaterally Abdomen: Soft and non-tender. Normoactive bowel sounds. Skin: Skin warm and dry.? Normal skin color.? ? Extremities: No lower extremity edema.? Neuro: Moves all extremities spontaneously. Sensation intact bilaterally. No motor deficits. Ambulates with normal steady gait. Course Course Course Narrative: This is an RME: Additional HPI, ROS, PE not included below will be deferred to primary provider. Patient is a 52 year old female who presents to emergency department for evaluation of upper respiratory symptoms; congestion, Increasing shortness of breath, productive cough with yellow/green phlegm. Denies fevers or chills. She is a cigarette smoker. No apparent distress. Speaking in full sentences. LS coarse with exp wheezing bilaterally Plan: albuterol inhaler, prednisone, CXR, COVID-19 Reevaluation(s) Reevaluation #1: Upon re-evaluation and decreased expiratory wheezing, resolution of rhonchi, subjective incision in her symptoms. Discussed plan of care for discharge home. She is with no apparent respiratory distress, speaking clear full sentences ambulatory with a steady gait. Ambulatory O2 saturation 93%. Discussed conservative treatment in addition to albuterol inhaler, azithromycin and prednisone for management of bronchitis. Reviewed worrisome signs and symptoms that would warrant re-evaluation emergency department. All questions were answered. Stable for discharge in outpatient follow-up with her primary care provider. Time: 19:11 Medications Administered Discontinued Medications Generic Name Dose Route Start Last Admin Trade Name Freq PRN Reason Stop Dose Admin Albuterol Sulfate 4 puff 01/30/23 17:55 01/30/23 18:00 Albuterol Sulfate 90 Mcg 8 Gm Inhaler INHALE 01/30/23 17:56 4 puff ONCE ONE Administration Prednisone 40 mg 01/30/23 17:20 01/30/23 18:13 Prednisone 20 Mg Tablet PO 01/30/23 17:21 40 mg ONCE ONE Administration Medical Decision Making Medical Decision Making MDM Narrative: Patient is a 52-year-old female presenting to the emergency department for evaluation of productive cough shortness of breath per HPI. At the time my examination she is overall well-appearing, mildly tachycardic at 01:04 with O2 saturation 92%. Will obtain chest x-ray, COVID-19 testing, and trial treatment with albuterol inhaler and oral prednisone. Differential Diagnosis Differential Diagnoses: The differential diagnosis associated with the presentation includes (Pneumonia, COVID-19, bronchitis, viral upper respiratory infection, COPD) Lab Data MDM Lab Attestation statement: I reviewed the patient's lab results. (COVID-19 testing is negative.) Labs: Lab Results 01/30/23 Range/Units 18:17 COVID-19 ([facility]) Negative (Negative) COVID-19 Clin Com See Note Independent Interpretation I performed an independent interpretation of an: Plain X-Ray (I have personally interpreted chest x-ray and agree with radiologist impression, no acute cardiopulmonary findings, no evidence of pneumonia) Radiology Impression Discussion of test interpretation with radiology: I have reviewed the radiologist's reading. Radiologist Impression: XR/XR chest 2V IMPRESSION: No acute cardiopulmonary findings. Prescription Management I considered prescription management with: Antibiotic Discharge Plan Discharge Clinical Impression: Bronchitis Patient Disposition: Home, Self-Care Instructions: Acute Bronchitis (ED) Additional Instructions: As discussed, use the albuterol inhaler 2 puffs every 4-6 hours as needed for shortness of breath/wheezing. Complete the entire course of antibiotics as prescribed; azithromycin which was sent to your pharmacy. Complete the course of prednisone as prescribed, you were given the first dose while in the emergency department today, began taking prednisone tomorrow, take with food to prevent stomach upset. Follow-up with your primary care provider for persistent symptoms. Return back to emergency department any new or worsening symptoms or concerns. Prescriptions: New prednisone 20 mg tablet 40 mg PO DAILY 4 Days Qty: 8 0RF azithromycin 250 mg tablet See Rx Instructions .ROUTE .COMPLEX Qty: 6 0RF Rx Instructions: For 250 mg dose pack: take 500 mg today (day 1), then 250 mg for 4 days (days 2-5) albuterol sulfate 90 mcg/actuation HFA aerosol inhaler 2 puff inhalation Q4-6H PRN (Reason: shortness of breath or wheezing) Qty: 6.7 0RF No Action ibuprofen 600 mg tablet 600 mg PO Q6H PRN (Reason: pain) Qty: 90 0RF cholecalciferol (vitamin D3) 25 mcg (1,000 unit) tablet 25 mcg PO DAILY Qty: 90 0RF fexofenadine [Tiffanie Allergy] 60 mg tablet 60 mg PO Q12H Referrals: Po,Lorenver O, MD [Primary Care Provider] - Interventions: ED Discharge Assessment Last Done: 01/30/23 19:38 Discharge Date/Time: 01/30/23 19:40
[2023-01-30] MEDS: Albuterol Sulfate 90 MCG 8 GM INHALER 4 PUFF INHALE (18:00)
[2023-01-30 18:02] VITALS: PULSE 105; RESP 20; O2SAT 92
[2023-01-30] MEDS: predniSONE 20 MG TABLET 40 MG PO (18:13)
[2023-01-30 18:35] LABS: COVID-19 Test Negative (Negative); IDNOW Serial# BCCEAD1C
== END 2023-01-30 19:40 | disposition home or self-care (01) ==
PROVIDERS: Nurse Practitioner Family; Emergency Provider Emergency Medicine; PCP Internal Medicine
DX: J40 Bronchitis, not specified as acute or chronic (principal); R09.89 Other specified symptoms and signs involving the circulatory and respiratory systems; R06.02 Shortness of breath; Z20.822 Contact with and (suspected) exposure to COVID-19
CPT/HCPCS: 71046; 87635; 94640; 99284

== ENCOUNTER 2023-04-01 06:10 | Outpatient (REF) | payer OTHER, SELFPAY ==
[2023-04-01 06:23] LABS: MANUAL DIFF FLAG NO
[2023-04-01 07:34] LABS: Appearance Urine Clear; Color Urine Yellow; Glucose Urine UA Negative (Negative); Leukocyte Esterase Urine Negative (Negative); Nitrite Urine Negative (Negative); PH 5.5 (5.0-9.0); UMIC TRIGGER UA YES; Urine Blood Trace (Negative); Urine Ketones Negative (Negative); Urine Protein Negative (Neg-Trace)
[2023-04-01 07:39] LABS: Basophils Absolute Auto 0.1 X10*3/uL (0.0-0.2); Basophils Percent Auto 1.6 % (0-2); Eosinophils Absolute Auto 0.2 X10*3/uL (0.0-0.4); Eosinophils Percent Auto 2.7 % (0-4); Hematocrit 44.9 % (37.0-47.0); Hemoglobin 14.8 g/dl (12.0-16.0); Imm Gran Abs Auto 0.01 X10*3/uL (0.00-0.03); Imm Gran Pct Auto 0.2 % (0.0-0.4); Lymphocytes Absolute Auto 2.2 X10*3/uL (1.2-4.9); Mean Corpuscular Hemoglobin 30.7 pg (27.0-33.0); Mean Corpuscular Volume 93.2 fL (80.0-98.0); Mean Platelet Volume 10.6 fL (9.4-12.3); Monocytes Absolute Auto 0.5 X10*3/uL (0.1-1.2); Monocytes Percent Auto 8.1 % (2-11); Neutrophils Absolute Auto 3.3 x10*3/uL (2.0-8.3); Neutrophils Percent Auto 52.4 % (45-73); Platelet Count 285 X10*3/uL (160-400); Red Blood Count 4.82 X10*6/uL (4.20-5.50); Red Cell Distribution Width 13.7 % (11.0-16.0); White Blood Count 6.2 X10*3/uL (4.8-10.8)
[2023-04-01 07:43] LABS: Bacteria Urine None Seen (None Seen); Hyaline Casts Urine 0-2 /LPF (0-2); RBC Urine 0-2 /HPF (0-2); WBC Urine 0-5 /HPF (0-5)
[2023-04-01 08:18] LABS: Erythrocyte Sedimentation Rate 9 MM/HR (0-20)
[2023-04-01 08:19] LABS: Alanine Aminotransferase 19 U/L (0-31); Albumin Level 4.2 g/dL (3.5-5.0); Alkaline Phosphatase 114 U/L (39-117); Anion Gap 12 (12-20); Aspartate Amino Transferase 20 U/L (5-31); Bilirubin Total 0.6 mg/dL (0.0-1.0); Blood Urea Nitrogen 9 mg/dL (9-16); C Reactive Protein 0.76 mg/dL (< or = 0.50); Calcium 9.5 mg/dL (8.4-10.2); Carbon Dioxide 27 mmol/L (22-29); Chloride 107 mmol/L (96-108); Cholesterol 178 mg/dL (<200); Estimated Glomerular Filt Rate > 60; Glucose Random 116 mg/dL (60-115); HDL Cholesterol 41 mg/dL (>40); LDL Cholesterol Calculated 120 mg/dL (<100); Potassium 3.9 mmol/L (3.3-5.1); Sodium 142 mmol/L (135-145); Total Protein 6.9 g/dL (6.5-8.0); Triglycerides 88 mg/dL (<150)
[2023-04-01 08:26] LABS: Free T4 (Free Thyroxine) 0.93 ng/dL (0.71-1.85); Thyroid Stimulating Hormone 2.64 uIU/mL (0.32-4.0); Vitamin D 25-OH Total 34.5 ng/mL (>30)
[2023-04-01 08:37] LABS: Vitamin B12 467 pg/mL (200-900)
== END 2023-04-01 06:11 | disposition home or self-care (01) ==
LOC: HO.LAB 06:10
PROVIDERS: PCP Internal Medicine; Visit Provider Internal Medicine
DX: R60.0 Localized edema (principal); E78.00 Pure hypercholesterolemia, unspecified; E55.9 Vitamin D deficiency, unspecified; S82.409A Unspecified fracture of shaft of unspecified fibula, initial encounter for closed fracture; X58.XXXA Exposure to other specified factors, initial encounter; Y93.9 Activity, unspecified; Y92.9 Unspecified place or not applicable; Y99.9 Unspecified external cause status
CPT/HCPCS: 36415; 80053; 80061; 81001; 82306; 82550; 82607; 82746; 84439; 84443; 85025; 85652; 86140

== ENCOUNTER 2023-04-06 10:32 | Outpatient (AMB) | payer OTHER, SELFPAY ==
[2023-04-06 10:43] VITALS: BP 130/80; PULSE 87; O2SAT 96; BMI 40.6
--- NOTE | 2023-04-06 10:43 | A.OFFPC_ITS ---
Vital Signs 04/06/23 10:43 Height 5 ft 1 in Weight 97.522 kg BMI 40.6 BP 130/80 Blood Pressure Location Lt brachial Position Sitting Pulse 87 Pulse Source Pulse Oximeter Pulse Oximetry (%) 96 Oxygen Delivery Method Room Air Intake Visit Reasons: leg swelling Allergies No Known Allergies [No Known Allergies*] Allergy (Verified 04/06/23 10:43) Medication List - Last Reconciled 04/06/23 by Aldo Liang MD albuterol sulfate 90 mcg/actuation 2 puffs inhalation Q4-6H PRN cholecalciferol (vitamin D3) 25 mcg PO DAILY fexofenadine (Tiffanie Allergy) 60 mg PO Q12H ibuprofen 600 mg PO Q6H PRN Tobacco use date assessed: 08/06/22 Dental Screening Dental Screen Date: 04/06/23 Did you have a dental visit in the last 12 months?: Yes Did you have a dental problem in the last 6 months where you did not have access to dental care?: No Was dental information given to patient?: Patient has dentist HPI leg swelling HPI Details 52-year-old obese female smoker with a h istory of fibular fracture last seen July 2022 coming in for follow-up. Patient has mammogram is due next month colonoscopy is up-to-date. Review of the notes January 2023 ER visit for bronchitis. Patient also had an echocardiogram done in January 2023 Normal LV systolic and diastolic function 2. Normal cardiac valvular Dopplers 3. Normal right atrial pressures 4. 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 Patient was seen by the nurse pract itioner in December 2022 for leg pain and back pain PFSH Medical History Breast cancer screening other than mammogram Clostridium difficile diarrhea Degenerative disc disease at L5-S1 level Diverticulitis Neuropathy Obesity (BMI 30-39.9) Tinnitus Tobacco abuse Vitamin D deficiency Surgical History H/O hand surgery Family History Mother Breast cancer Asthma Father No problems noted. Maternal Aunt Colon cancer Brother Schizophrenia Other Mental health disorder Social History Household Members: Family Housing: House Are you a primary health care marketing specialist to a significant other at home: No Do you presently have visiting nurse or other home services: No Alcohol intake: current Alcohol intake frequency: a few times a week Alcohol type: beer and wine Patient Tobacco Use Status: Current everyday Tobacco user Tobacco use type: Cigarette Cigarette Packs Per Day: 0.5 Cigarettes Per Day: 10 Years Smoked: 30 Packs Per Year: 15 Packs per year/per ci.00 e-Cigarette/Vaping Use: Never Used Second Hand Smoke Exposure: Yes service: No Current occupational status: employed 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 1. Little interest or pleasure in doing things: not at all 2. Feeling down, depressed, or hopeless: not at all 3. Trouble falling or staying asleep, or sleeping too much: not at all 4. Feeling tired or having little energy: not at all 5. Poor appetite or overeating: not at all 6. Feeling bad about yourself - or that you are a failure or have let yourself or your family down: not at all 7. Trouble concentrating on things, such as reading the newspaper or watching television: not at all 8. Moving or speaking so slowly that other people could have noticed. Or the opposite - being so fidgety or restless that you have been moving around a lot more than usual: not at all 9. Thoughts that you would be better off or of hurting yourself in some way: not at all Total score: 0 Depression Screening Interpretation: Negative Source: Developed by Drs. Jero Tan, Renae Bedoya, Salvatore Chavis and colleagues, with an educational kassidy from [employer]. Thrive Questionnaire Date Thrive assessed: 08/06/22 AUDIT C Alcohol Use Questionnaire (AUDIT-C) 1. How often do you have a drink containing alcohol?: 2-3 times a week 2. How many drinks containing alcohol do you have on a typical day when you are drinking?: 3 or 4 3. How often do you have six or more drinks on one occasion?: Monthly Total Score: 6 Score Reviewed/Action Taken: Yes ELISEO-7 AMB Questionnaire ELISEO-7 Date ELISEO - 7 assessed: 08/06/22 Source: Developed by Drs. Jero Tan, Renae Bedoya, Salvatore Chavis and colleagues, with an educational kassidy from [employer]. Physical exam (Primary Care) Vital Signs: Last Vital Signs Pulse 87 04/06/23 10:43 BP 130/80 04/06/23 10:43 Pulse Ox 96 04/06/23 10:43 Oxygen Delivery Method Room Air 04/06/23 10:43 BMI result Body Mass Index 40.6 Tobacco/Smoking Status: Tobacco use Status Tobacco use date assessed 08/06/22 04/06/23 10:50 Patient Tobacco Use Status Current everyday Tobacco 04/06/23 10:50 Tobacco use type Cigarette 04/06/23 10:50 e-Cigarette/Vaping Use Never Used 04/06/23 10:50 PHQ-9: PHQ-9 Score PHQ-9: Total score 0 04/06/23 11:03 Depression Screening Interpretation: Negative Thrive Assessment: Date of Thrive Assessment Date Thrive assessed 08/06/22 04/06/23 10:50 Const General: alert; No acute distress Eyes Conjunctivae: conjunctivae normal Resp Auscultation: clear to auscultation bilaterally Cardio Rate: regular rate Rhythm: regular rhythm GI Inspection: Yes normal to inspection Extrem General: Yes normal to inspection and No edema Results AMB Urinalysis, Automated UA Leukoctes 0 Kevin/uL Last Edit by Nichole Briseno CMA on 04/06/23 13:29 UA Nitrite Negative Last Edit by Nichole Briseno CMA on 04/06/23 13:29 UA Urobilinogen 0.2 mg/dL Last Edit by Nichole Briseno CMA on 04/06/23 13:29 UA Protein 0 mg/dL Last Edit by Nichole Briseno CMA on 04/06/23 13:29 UA pH 6.0 Last Edit by Nichole Briseno CMA on 04/06/23 13:29 UA Blood 0 Santos/uL Last Edit by Nichole Briseno, JAY on 04/06/23 13:29 UA Specific [place] 1.015 Last Edit by Nichole Briseno, JAY on 04/06/23 13:29 UA Ketone Negative Last Edit by Nichole Briseno, JAY on 04/06/23 13:29 UA Bilirubin 0 mg/dL Last Edit by Nichole Briseno, JAY on 04/06/23 13:29 UA Glucose 0 mg/dL Last Edit by Nichole Briseno, JAY on 04/06/23 13:29 Assessment and Plan Assessment & Plan (1) Closed fracture of right distal fibula: Code(s): S82.831A - Other fracture of upper and lower end of right fibula, initial encounter for closed fracture Plan: Patient follows up with orthopedics and sent for physical therapy (2) Tobacco abuse: Code(s): Z72.0 - Tobacco use Plan: Patient strongly advised to stop smoking! (3) Obesity (BMI 30-39.9): Code(s): E66.9 - Obesity, unspecified Plan: Diet and exercise (4) Leg pain: Code(s): M79.606 - Pain in leg, unspecified Plan: will refer to rheumatology ,and requestvacular studies (5) Actinic keratosis: Code(s): L57.0 - Actinic keratosis (6) Urge incontinence: Code(s): N39.41 - Urge incontinence Orders: Orders US duplex arterial venous comp Today M79.606 - Pain in leg, unspecified AMB Urinalysis Automated Today N39.41 - Urge incontinence, Z13.9 - Encounter for screening, unspecified Referrals Dermatology Referral L57.0 - Actinic keratosis Rheumatology Referral M79.606 - Pain in leg, unspecified Medications: New tolterodine ER (Detrol LA) 2 mg PO DAILY 30 caps 0RF N39.41 - Urge incontinence Coding Level of Care Code Est Pt Level 4 (76363) Diagnoses Closed fracture of right distal fibula S82.831A Tobacco abuse Z72.0 Obesity (BMI 30-39.9) E66.9 Leg pain M79.606 Actinic keratosis L57.0 Urge incontinence N39.41 Additional Codes PHQ-9 - 27739 - PHQ-9 Billing: ([id number])
== END 2023-04-06 11:30 | disposition home or self-care (01) ==
PROVIDERS: PCP Internal Medicine; Visit Provider Internal Medicine
DX: S82.831A Other fracture of upper and lower end of right fibula, initial encounter for closed fracture (principal); E66.9 Obesity, unspecified; Z68.41 Body mass index [BMI] 40.0-44.9, adult; N39.41 Urge incontinence; Z72.0 Tobacco use; M79.606 Pain in leg, unspecified; L57.0 Actinic keratosis
CPT/HCPCS: 81003; 99214

== ENCOUNTER 2023-05-04 14:35 | Outpatient (REF) | payer OTHER, SELFPAY ==
--- NOTE | ~2023-05-04 | US_ITS ---
EXAMINATION: BILATERAL LOWER EXTREMITY DUPLEX CLINICAL INFORMATION: Pain in limb, unspecified COMPARISON: None TECHNIQUE: Dduplex Doppler techniques with wave form analysis and measurement of velocities in the common femoral, profunda femoral, superficial femoral, popliteal, tibial and peroneal arteries. The study was performed only at rest. FINDINGS: RIGHT LEG Common femoral artery: 200 cm/s, Multiphasic Profunda femoris artery: 147 cm/s, Multiphasic Superficial femoral artery (proximal): 127 cm/s, Multiphasic Superficial femoral artery (mid): 136 cm/s, Multiphasic Superficial femoral artery (distal): 105 cm/s, Multiphasic Popliteal artery: 121 cm/s, Multiphasic Posterior tibial artery: 109 cm/s, Multiphasic Anterior tibial artery: 90.9 cm/s, multiphasic Proximal peroneal artery: 40 cm/s, difficult to evaluate waveform. Not well visualized beyond its proximal aspect. LEFT LEG: Common femoral artery: 167 cm/s, Multiphasic Profunda femoris artery: 68 cm/s, Multiphasic Superficial femoral artery (proximal): 134 cm/s, Multiphasic Superficial femoral artery (mid): 134 cm/s, Multiphasic Superficial femoral artery (distal): 130 cm/s, Multiphasic Popliteal artery: 105 cm/s, Multiphasic Posterior tibial artery: 91 cm/s, Multiphasic Anterior tibial artery: 45.6 cm/s, Multiphasic Peroneal artery: 46.8 cm/s, Multiphasic US/US arterial duplex LE BI IMPRESSION: No definite evidence of hemodynamically significant arterial disease of the left lower extremity.
== END 2023-05-04 14:36 | disposition home or self-care (01) ==
LOC: HO.US 14:35
PROVIDERS: Visit Provider Internal Medicine
DX: M79.604 Pain in right leg (principal); M79.605 Pain in left leg
CPT/HCPCS: 93925

== ENCOUNTER 2023-05-19 14:41 | Outpatient (REF) | payer OTHER, SELFPAY | END 2023-05-19 14:42 | disposition home or self-care (01) | LOC: HO.MAMMO 14:41 | PROVIDERS: PCP Internal Medicine; Visit Provider Internal Medicine | DX: Z12.31 Encounter for screening mammogram for malignant neoplasm of breast (principal) | CPT/HCPCS: 77063; 77067 ==

== ENCOUNTER → 2023-05-19 14:45 | Outpatient (BNV) | payer OTHER, SELFPAY | PROVIDERS: PCP Internal Medicine; Visit Provider Radiology Diagnostic Radiology | DX: Z12.31 Encounter for screening mammogram for malignant neoplasm of breast (principal) | CPT/HCPCS: 77063; 77067 ==

== ENCOUNTER 2023-06-10 16:20 | Outpatient (REF) | payer OTHER, SELFPAY ==
[2023-06-10 17:26] LABS: Influenza A PCR NEGATIVE (Negative); Influenza B PCR NEGATIVE (Negative); Resp Syncy Virus RNA Qual PCR NEGATIVE (Negative); SARS COV2 PCR INHOUSE NEGATIVE (Negative)
== END 2023-06-10 16:21 | disposition home or self-care (01) ==
LOC: HO.LAB 16:20
PROVIDERS: PCP Internal Medicine; Visit Provider Internal Medicine
DX: Z11.52 Encounter for screening for COVID-19 (principal); Z20.822 Contact with and (suspected) exposure to COVID-19; R09.89 Other specified symptoms and signs involving the circulatory and respiratory systems
CPT/HCPCS: 0241U

== ENCOUNTER 2023-07-07 08:40 | Outpatient (AMB) | payer OTHER, SELFPAY ==
--- NOTE | 2023-07-07 08:44 | A.OFFVIS_ITS ---
Intake Vital Signs 07/07/23 08:45 Height 5 ft 1 in Weight 231 lb BMI 43.6 BP 110/68 Blood Pressure Location Lt brachial Position Sitting Pulse 90 Pulse Source Pulse Oximeter Temp 97 F Temp Source Skin Pulse Oximetry (%) 95 Oxygen Delivery Method Room Air Intake Visit Reasons: Leg Pain Intake Note: New pt presents today for leg pain consult. 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 c/o multiple joint pains for about a year. Has tried foot injections and PT. [place] [facility] [place] Ui Engineer Required: No Accompanied by: Self / Same As Patient Allergies No Known Allergies [No Known Allergies*] Allergy (Verified 07/07/23 08:50) Medication List - Last Reconciled 07/07/23 by Mady Mcgregor MD albuterol sulfate 90 mcg/actuation 2 puffs inhalation Q4-6H PRN fexofenadine (Tiffanie Allergy) 60 mg PO Q12H ibuprofen 600 mg PO Q6H PRN tolterodine ER (Detrol LA) 2 mg PO DAILY HPI HPI Comments History of Present Illness Details This is a 52-year-old female who presents for evaluation of chronic bilateral lower extremity pain. She states that she has had bilateral lower extremity pain extending from her thighs, knees, legs and feet for years. She states that she was evaluated by neurologist Dr. Casey pennington in 2017. She has had multiple EMG/NCV all of all 4 extremities. She states that they were negative. She eventually had a skin biopsy from her leg and according to patient it showed small fiber neuropathy she took gabapentin for a while and she does not recall whether it helped. She then saw another neurologist at [facility] in 2019 and she was on Topamax which helped initially then stopped helping. She states that she continues to have sharp and achy pain in her lower extremities as well as her lower back. She also states that she has had SI joint injections by Dr. Low in the past. She is unaware of any family history of an autoimmune rheumatic disease. She denies any skin rashes. Denies any fevers denies weight loss. Denies any history of DVT/PE. She states that her ankle sometimes swell up at night and the swelling improves in the morning. [facility], [facility] Medical History Diverticulitis Breast cancer screening other than mammogram Clostridium difficile diarrhea Degenerative disc disease at L5-S1 level Tobacco abuse Tinnitus Obesity (BMI 30-39.9) Vitamin D deficiency Neuropathy Surgical History H/O hand surgery Family History Mother Breast cancer Asthma Arthritis Father No problems noted. Maternal Aunt Colon cancer Brother Schizophrenia Other Mental health disorder Social History Household Members: Family Housing: House Are you a primary personal care aide to a significant other at home: No Do you presently have visiting nurse or other home services: No Alcohol intake: current Alcohol intake frequency: a few times a week Alcohol type: beer and wine Patient Tobacco Use Status: Current everyday Tobacco user Tobacco use type: Cigarette Cigarette Packs Per Day: 0.5 Cigarettes Per Day: 10 Years Smoked: 30 e-Cigarette/Vaping Use: Never Used Second Hand Smoke Exposure: Yes service: No Current occupational status: employed 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 [employer]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 Cognitive needs: No Hearing needs: No Vision needs: Yes (glasses) Female Reproductive History Menstrual Total pregnancies: 2 Full term: 1 Ab induced: 1 Review of Systems Const Reports fatigue and Reports weight gain Eyes Reports dry eyes and Reports itchy eyes ENT Reports dry mouth Musc Reports back pain, Reports arthralgias, Reports joint swelling, Reports stiffness and Reports tingling Skin/Breast Denies rash Neuro Reports tingling and Reports paresthesias Endo Reports fatigue Aller/Immun Reports itchy eyes Physical Exam Vital Signs: Last Vital Signs Temp 97 F 07/07/23 08:45 Pulse 90 07/07/23 08:45 BP 110/68 07/07/23 08:45 Pulse Ox 95 07/07/23 08:45 Oxygen Delivery Method Room Air 07/07/23 08:45 BMI result Body Mass Index 43.6 Const General: cooperative, healthy appearing and comfortable Nutritional Appearance: obese morbidly obese Orientation/consciousness: patient oriented x3 Limitations: no limitations HEENT Other: Mildly dry tongue but moist oral mucosa Head: Yes normocephalic and Yes atraumatic Resp Effort & Inspection: normal respiratory effort and able to speak in complete sentences Auscultation: clear to auscultation bilaterally Cardio Rate: regular rate Rhythm: regular rhythm GI Inspection: No distended Palpation (GI): Soft to palpation and nontender Skin General skin exam: no rashes or lesions noted Neuro General: patient oriented x3 Extrem Other: No active synovitis Mildly puffy fingers No skin thickening No visibly swollen joints Normal range of motion of hands, elbows, shoulders Bilateral knee crepitus and pain with full flexion Bilateral reduced sensation in legs and feet. Normal nailfold capillaroscopy Assessment & Plan Assessment & Plan (1) Neuropathy: Comment: idiopathic small fiber neuropathy July 2016 Dr. Peña Code(s): G62.9 - Polyneuropathy, unspecified Plan: This is a 52-year-old female who presents for evaluation of bilateral lower extremity pain since 2017. According to patient she has had EMG/NCV of all 4 extremities and they were all negative. She states that she had a skin biopsy of her legs that showed small fiber neuropathy she took gabapentin for some ti me and Topamax for some time with mixed results. Upon my evaluation I do not see any signs of systemic autoimmune rheumatic disease. I suggest repeat evaluation by Neurology. 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 She might consider going back to pain management for re-evaluation Follow-up with me as needed Plan I spent 47 minutes reviewing patient's chart, evaluating patient, counseling patient and documenting in the chart Coding Level of Care Code New Pt Level 4 (10303) Diagnoses Neuropathy G62.9
[2023-07-07 08:45] VITALS: BP 110/68; PULSE 90; TEMP 36.1; O2SAT 95; BMI 43.6
== END 2023-07-07 09:31 | disposition home or self-care (01) ==
PROVIDERS: PCP Internal Medicine; Visit Provider Student in an Organized Health Care Education/Training Program
DX: G62.9 Polyneuropathy, unspecified (principal)
CPT/HCPCS: 99204

== ENCOUNTER → 2023-07-07 08:40 | Outpatient (BNVA) | payer OTHER, SELFPAY | PROVIDERS: PCP Internal Medicine; Visit Provider Student in an Organized Health Care Education/Training Program ==

== ENCOUNTER 2023-07-15 13:55 | Outpatient (AMB) | payer OTHER, SELFPAY ==
--- NOTE | 2023-07-15 13:57 | MHC.OFFVIS ---
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 She was followed by Dr. Low previously and received right SIJ injection about 12 years ago with good relief. Reports no pain since then until she injured her right lower leg in 2022 due to a mechanical fall. Patient presents with lower back pain that radiates down to both legs and both feet with diffuse numbness and tingling without specific dermatome. This has been chronic symptoms for her. Pain affects her daily activities and functioning, mobility, sleep, social interactions and quality of life. Patient reports she wakes up in significant amount of pain every morning which is intensified as the day goes. Her pain has been resistant to conservative treatments. She was previously evaluated by Dr. Peña in 2016 and completed multiple EMG/NCV studies for upper and lower extremities. She states that Neurodiagnostic studies were negative. Patient eventually had a skin biopsy from her leg by Dr. Peña and was diagnosed with idiopathic small fiber neuropathy. She tried gabapentin without significant benefit. Patient was then evaluated by another Neurologist at [facility] in 2019 and was tried on Topamax without any relief. 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 Denies previous spine surgery. Patient denies any fever, abdominal or groin pain, foot drop, weakness, bladder or bowel dysfunction or saddle anesthesia. 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 She consumes to regular sodas every morning and occasionally or weekly [place] wine. She does not drink coffee. Denies any illicit or recreational substance use. Patient has been smoking half a pack/day for over 30 years. Patient is interested to reduce daily amounts of cigarettes and requests referral for lung cancer screening. Location Lower back radiates down bilateral legs to bilateral feet Duration Chronic pain for many years, progressively getting worse Characteristics of symptom or complaint Aching, sharp, tingling, numbness, pulling, tiring, heavy, radiating Aggravating or associated factors Walking, movements, prolonged standing or walking Relieving factors Heat therapy, ice roll, Tylenol, tried gabapentin and Topamax Treatment PT- no improvement, Shockwave therapy, TENS unit PFS Medical History Idiopathic small fiber sensory neuropathy Diverticulitis Breast cancer screening other than mammogram Clostridium difficile diarrhea Degenerative disc disease at L5-S1 level Tobacco abuse Tinnitus Obesity (BMI 30-39.9) Vitamin D deficiency Neuropathy Surgical History H/O hand surgery Family History Mother Breast cancer Asthma Arthritis Father No problems noted. Maternal Aunt Colon cancer Brother Schizophrenia Other Mental health disorder Social History Household Members: Family Housing: House Are you a primary resident care aid to a significant other at home: No Do you presently have visiting nurse or other home services: No Alcohol intake: current Alcohol intake frequency: a few times a week Alcohol type: beer and wine Patient Tobacco Use Status: Current everyday Tobacco user Tobacco use type: Cigarette Cigarette Packs Per Day: 0.5 Cigarettes Per Day: 10 Years Smoked: 30 e-Cigarette/Vaping Use: Never Used Second Hand Smoke Exposure: Yes service: No Current occupational status: employed 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 Alert and oriented. Mood and affect appropriate. Follows and participates in conversation appropriately. Respiratory effort is unlabored. No cough. Able to transition from sit to stand unassisted. Ambulates with bilaterally normal heel strike and toe off. Back/Spine/Pelvis Other: Limited lumbar ROM due to pain. Can flex forward to 65-70 degrees and extend to 5-10 degrees before experiencing lumbar pain. Demonstrates 5/5 strength of quadriceps bilaterally as well as flexion/dorsiflexion of bilateral feet against resistance. 2+ pedal pulses bilaterally. Seated straight leg rise with dorsiflexion negative bilaterally. +1 patellar and achilles reflexes bilaterally. Facet loading test positive bilaterally. [place]?s, [place], Pelvic compression and Stinchfield tests are positive bilaterally on the right, equivocal on the left. No groin pain with I/E hip rotations. Valsalva maneuver negative. Cervical Spine: cervical ROM normal, cervical muscular tenderness and No Cervical spine tenderness Thoracic/Lumbar Spine: thoracic and lumbar spine normal to inspection, No Thoracic/lumbar spine scar(s), Lasegue's sign negative, straight leg raise negative bilaterally, pain with thoraco-lumbar ROM, paraspinal muscle tenderness, thoraco-lumbar ROM limited, No thoracic spinal tenderness and lumbar spinal tenderness Pelvis: buttock tenderness on the right and no sciatic notch tenderness Sacroiliac joints: on the right tender to palpation and on the left nontender Neuro General: Normal light touch and pain sensation and CN's II-XI intact bilaterally Cognition (Neuro): normal cognition Gait exam (Neuro): Normal gait present Motor exam (neuro): 5/5 motor strength present throughout, no tremor noted and Motor abnormalities not present Sensory Exam: No Sensory deficit (Neuro) Results Reviewed Results Reviewed: US/US arterial duplex LE 05/04/23 IMPRESSION: No definite evidence of hemodynamically significant arterial disease of the left lower extremity. XR HIP, RIGHT 12/31/22 CLINICAL INFORMATION: Right hip pain. COMPARISON: 11/27/2020 FINDINGS: AP film of the pelvis demonstrates partial sacralization of L5 with transverse processes causing pseudoarticulation with the right iliac crest and questionably about the left iliac crest. There is some sclerosis seen involving the superior aspect of the left sacroiliac joint. Hip joint spaces appear maintained with some superior marginal spurring identified. Calcific trochanteric cyst seen on the left. Two views of the right hip do not demonstrate any evidence of acute fracture or dislocation. Hip joint space is maintained. Mild superior acetabular spurring is seen. No abnormal lytic or sclerotic lesions are identified. No evidence of femoral head collapse. 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 XR ankle RT min 3V on 11/17/22 IMPRESSION: Healing distal fibular shaft fracture. CT/CT abdomen pelvis wo con on 05/19/21 OSSEOUS STRUCTURES: No acute or aggressive osseous abnormalities. Multilevel thoracolumbar spondylosis with prominent anterior osteophytes at L3-L4 and L4-L5. Assessment & Plan Assessment & Plan (1) Lumbosacral spondylosis: Code(s): M47.817 - Spondylosis without myelopathy or radiculopathy, lumbosacral region (2) Sacroiliac joint pain: Code(s): M53.3 - Sacrococcygeal disorders, not elsewhere classified (3) Neuropathy: Comment: idiopathic small fiber neuropathy July 2016 Dr. Peña Code(s): G62.9 - Polyneuropathy, unspecified (4) Idiopathic small fiber sensory neuropathy: Code(s): G60.8 - Other hereditary and idiopathic neuropathies (5) Tobacco abuse: Code(s): Z72.0 - Tobacco use (6) Smokes less than 1 pack a day with greater than 15 pack year history: Code(s): F17.210 - Nicotine dependence, cigarettes, uncomplicated Plan Neurology referral to [facility] for further evaluation and treatment of small fiber neuropathy. Will update Neurodiagnostic studies for bilateral lower extremities. Lumbar spine imaging to assess degree of degenerative changes, any subluxation, listhesis, compression fractures or pars defects. Briefly discussed interventional treatments for axial and radicular low back pain and bilateral leg and foot pain, including diagnostic versus therapeutic injections, neuromodulataion with SCS or Sprint PNS trials, RFA procedures, and topical 8% capsaicin application. Informational brochures were provided to patient. Pulmonology referral for lung cancer screening given long history of tobacco use dependence. Patient were in on the dentures of tobacco and advised to decrease daily cigarettes use. Continue daily physical activity and home exercise program as tolerated, encourage adequate daily hydration, good posture and weight optimization. All questions and concerns have been answered. Follow-up for x-ray results and sooner as needed. Orders: Orders XR lumbar spine 6V w bending 07/15/23 M47.817 - Spondylosis without myelopathy or radiculopathy, lumbosacral region, M53.3 - Sacrococcygeal disorders, not elsewhere classified, M54.50 - Low back pain, unspecified NE nerve conduction velocity 07/15/23 G60.8 - Other hereditary and idiopathic neuropathies, G62.9 - Polyneuropathy, unspecified NE electromyogram (EMG) 07/15/23 G60.8 - Other hereditary and idiopathic neuropathies, G62.9 - Polyneuropathy, unspecified Referrals Neurology Referral G60.8 - Other hereditary and idiopathic neuropathies, G62.9 - Polyneuropathy, unspecified Pulmonology Referral F17.210 - Nicotine dependence, cigarettes, uncomplicated, Z12.2 - Encounter for screening for malignant neoplasm of respiratory organs, Z72.0 - Tobacco use Coding Level of Care Code New Pt Level 4 (16232) Diagnoses Lumbosacral spondylosis M47.817 Sacroiliac joint pain M53.3 Neuropathy G62.9 Idiopathic small fiber sensory neuropathy G60.8 Tobacco abuse Z72.0 Smokes less than 1 pack a day with greater than 15 pack year history F17.210
[2023-07-15 14:01] VITALS: BP 149/68; PULSE 102; O2SAT 96; BMI 44.8
== END 2023-07-15 14:46 | disposition home or self-care (01) ==
PROVIDERS: PCP Internal Medicine; Visit Provider Nurse Practitioner Family
DX: M47.817 Spondylosis without myelopathy or radiculopathy, lumbosacral region (principal); M53.3 Sacrococcygeal disorders, not elsewhere classified; G62.9 Polyneuropathy, unspecified; G60.8 Other hereditary and idiopathic neuropathies; Z72.0 Tobacco use; F17.210 Nicotine dependence, cigarettes, uncomplicated
CPT/HCPCS: 99204

== ENCOUNTER → 2023-07-15 13:55 | Outpatient (BNVA) | payer OTHER, SELFPAY | PROVIDERS: PCP Internal Medicine; Visit Provider Nurse Practitioner Family ==

== ENCOUNTER 2023-08-17 08:55 | Outpatient (AMB) | payer OTHER, SELFPAY ==
[2023-08-17 09:03] VITALS: BP 138/72; PULSE 91; O2SAT 97; BMI 39.7
--- NOTE | 2023-08-17 09:03 | A.OFFPC_ITS ---
Vital Signs 08/17/23 09:03 Height 5 ft 1 in Weight 210 lb 0.8 oz BMI 39.7 BP 138/72 Blood Pressure Location Lt brachial Position Sitting Pulse 91 Pulse Source Pulse Oximeter Pulse Oximetry (%) 97 Oxygen Delivery Method Room Air Intake Visit Reasons: Annual Exam Intake Note: Patient is here today for a physical. 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 Allergies No Known Allergies [No Known Allergies*] Allergy (Verified 08/17/23 09:03) Medication List - Last Reconciled 08/17/23 by Aldo Liang MD albuterol sulfate 90 mcg/actuation 2 puffs inhalation Q4-6H PRN fexofenadine (Tiffanie Allergy) 60 mg PO Q12H ibuprofen 600 mg PO Q6H PRN tolterodine ER (Detrol LA) 2 mg PO DAILY Tobacco use date assessed: 08/17/23 Dental Screening Dental Screen Date: 08/17/23 Did you have a dental visit in the last 12 months?: Yes Did you have a dental problem in the last 6 months where you did not have access to dental care?: No Was dental information given to patient?: Patient has dentist HPI Annual Exam HPI Details 53-year-old obese female smoker with a h istory of right distal fibular fracture with urge incontinence coming in for physical exam last seen in March 2023. Patient's mammogram is up-to-date colonoscopy is up-to-date. Review of the notes had neuro pathology biopsy showing small fiber neuropathy patient has been sent to pain management given gabapentin without benefit was then referred to Neurology and [facility] tried on Topamax without any relief. Patient was also sent to the pain management for the lumbar spine degenerative arthritis. patient will have another nerve test and will have another neurologist. [facility] Medical History (Updated 08/17/23 @ 09:50 by Aldo Liang MD) Closed fracture of right distal fibula Idiopathic small fiber sensory neuropathy Diverticulitis Breast cancer screening other than mammogram Clostridium difficile diarrhea Degenerative disc disease at L5-S1 level Tobacco abuse Tinnitus Obesity (BMI 30-39.9) Vitamin D deficiency Neuropathy Surgical History H/O hand surgery Family History Mother Breast cancer Asthma Arthritis Father No problems noted. Maternal Aunt Colon cancer Brother Schizophrenia Other Mental health disorder Social History (Updated 08/17/23 @ 09:38 by Aldo Liang MD) Household Members: Family Housing: House Are you a primary manager critical care to a significant other at home: No Do you presently have visiting nurse or other home services: No Alcohol intake: current Alcohol intake frequency: a few times a week Alcohol type: beer and wine Comment: once a week 4 drinks Patient Tobacco Use Status: Current everyday Tobacco user Tobacco use type: Cigarette Cigarette Packs Per Day: 0.5 Cigarettes Per Day: 10 Years Smoked: 30 e-Cigarette/Vaping Use: Never Used Second Hand Smoke Exposure: Yes service: No Current occupational status: employed 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 1. Little interest or pleasure in doing things: not at all 2. Feeling down, depressed, or hopeless: not at all 3. Trouble falling or staying asleep, or sleeping too much: not at all 4. Feeling tired or having little energy: not at all 5. Poor appetite or overeating: not at all 6. Feeling bad about yourself - or that you are a failure or have let yourself or your family down: not at all 7. Trouble concentrating on things, such as reading the newspaper or watching television: not at all 8. Moving or speaking so slowly that other people could have noticed. Or the opposite - being so fidgety or restless that you have been moving around a lot more than usual: not at all 9. Thoughts that you would be better off or of hurting yourself in some way: not at all Total score: 0 Depression Screening Interpretation: Negative Depression Screening Done: Yes Source: Developed by Drs. Jero Tan, Renae Bedoya, Salvatore Chavis and colleagues, with an educational kassidy from [employer]. Thrive Questionnaire Date Thrive assessed: 08/17/23 I am a: Patient What is your living situation today?: I have a steady place to live Within the past 12 months, did the food you bought not last and you didn't have the money to get more?: Never true Within the past 12 months, did you worry whether your food would run out before you got money to buy more?: Never true Do you have trouble paying for medicines?: No Do you have trouble getting transportation to medical appointments?: No Do you have trouble paying your heating and electricity bill?: No Do you have trouble taking care of your child, family member or friend?: No Do you have trouble with day-to-day activities such as bathing, preparing meals, shopping, managing finances, etc.?: No Are you currently unemployed and looking for a job?: No Are you interested in more education?: No Please select the resources that you would like help with: None THRIVE Score: 0 AUDIT C Alcohol Use Questionnaire (AUDIT-C) 1. How often do you have a drink containing alcohol?: 2-3 times a week 2. How many drinks containing alcohol do you have on a typical day when you are drinking?: 3 or 4 3. How often do you have six or more drinks on one occasion?: Monthly Total Score: 6 Score Reviewed/Action Taken: Yes ELISEO-7 AMB Questionnaire ELISEO-7 Date ELISEO - 7 assessed: 08/17/23 Feeling nervous, anxious, or on edge: 0 = Not at all Not being able to stop or control worryin = Not at all Worrying too much about different things: 0 = Not at all Trouble relaxin = Not at all Being so restless that it is hard to sit still: 0 = Not at all Becoming easily annoyed or irritable: 0 = Not at all Feeling afraid as if something awful might happen: 0 = Not at all Total ELISEO-7 score (0-4 normal; 5-9 mild; 10-14 moderate; 15-21 severe): 0 Source: Developed by Drs. Jero Tan, Renae Bedoya, Salvatore Chavis and colleagues, with an educational kassidy from [employer]. Review of Systems Const Denies poor appetite and Denies weakness Eyes Denies no additional complaints ENT Reports Normal hearing present, Denies dizziness, Denies nasal congestion, Denies tinnitus and Denies sore throat Card Denies chest pain, Denies syncope, Denies rapid heart rate and Denies dyspnea Resp Denies cough and Denies dyspnea GI Denies change in stool character, Reports constipation, Denies diarrhea, Denies nausea and Denies vomiting Denies urinary frequency, Denies difficulty voiding and Denies dysuria Neuro Reports Normal hearing present, Denies confusion, Denies dizziness, Denies syncope and Denies weakness Psych Denies confusion Physical exam (Primary Care) Vital Signs: Last Vital Signs Pulse 91 08/17/23 09:03 BP 138/72 08/17/23 09:03 Pulse Ox 97 08/17/23 09:03 Oxygen Delivery Method Room Air 08/17/23 09:03 Care Plan Goal for BP management: Declined rectal exam BMI result Body Mass Index 39.7 Tobacco/Smoking Status: Tobacco use Status Tobacco use date assessed 08/17/23 08/17/23 09:05 Patient Tobacco Use Status Current everyday Tobacco 08/17/23 09:05 Tobacco use type Cigarette 08/17/23 09:05 e-Cigarette/Vaping Use Never Used 08/17/23 09:05 PHQ-9: PHQ-9 Score PHQ-9: Total score 0 08/17/23 09:05 Depression Screening Interpretation: Negative Thrive Assessment: Date of Thrive Assessment Date Thrive assessed 08/17/23 08/17/23 09:05 Const General: No confusion Orientation/consciousness: No confusion HENMT Head: Yes normocephalic Ears: external ears normal and TM's normal bilaterally Face and sinus: Yes normal facial exam Mouth: moist mucous membranes Throat: Yes tonsils normal Eyes Conjunctivae: conjunctivae normal Pupils: Equal, round and reactive pupils present and Pupil accommodation reflex normal Direct Ophthalmoscopy: normal light reflex Neck Neck: No lymphadenopathy Thyroid: Thyroid normal Chest Chest palpation & inspection: normal inspection of the chest Resp Effort & Inspection: normal respiratory effort and no audible wheezes Auscultation: clear to auscultation bilaterally, no crackles, no wheezes and lung sounds not diminished Cardio Rate: regular rate Rhythm: regular rhythm Peripheral pulses: radial pulses present and dorsalis pedis present GI Palpation (GI): no masses Auscultation: normal bowel sounds and normoactive bowel sounds Rectal Exam - Female: deferred Skin General skin exam: no rashes or lesions noted Rashes: no rashes Neuro General: No confusion Cranial nerves: Yes Equal, round and reactive pupils present and Yes Normal hearing present Cognition (Neuro): normal cognition Gait exam (Neuro): Normal gait present Motor exam (neuro): 5 motor strength present throughout Deep tendon reflexes (DTR's): Right brachioradialis reflex intensity grade: 2+, Left brachioradialis reflex intensity grade: 2+, Right patellar reflex intensity grade: 2+ and Left patellar reflex intensity grade: 2+ Extrem General: No edema Assessment and Plan Assessment & Plan (1) Annual physical exam: Code(s): Z00.00 - Encounter for general adult medical examination without abnormal findings (2) Idiopathic small fiber sensory neuropathy: Code(s): G60.8 - Other hereditary and idiopathic neuropathies Plan: Patient has seen neurologist in [facility] in [place] and has tried multiple medications with no relief patient is being sent to the Neurology and [place] (3) Lumbosacral spondylosis: Code(s): M47.817 - Spondylosis without myelopathy or radiculopathy, lumbosacral region Plan: Patient has met with the pain management and discussed about treatment options (4) Obesity (BMI 30-39.9): Code(s): E66.9 - Obesity, unspecified Plan: Diet and exercise (5) Tobacco abuse: Code(s): Z72.0 - Tobacco use Plan: Patient has been referred to pulmonary for lung cancer screening. patient is not ready to stop smoking (6) Impaired fasting blood sugar: Code(s): R73.01 - Impaired fasting glucose Plan: Decrease the amount of carbohydrate intake, pasta, bread, rice and potatoes are all sugar and that is aside from all the sweet stuff, remember that fruits are good but they are Sweet also. Blood work retesting (7) Nasal congestion: Code(s): R09.81 - Nasal congestion Plan: Nasal spray sent can also do nasal rinses (8) Trigger finger of right thumb: Code(s): M65.311 - Trigger thumb, right thumb Plan: Referral to orthopedics done Orders: Orders Comprehensive Met. Panel Today R73.01 - Impaired fasting glucose Hemoglobin A1c Today R73.01 - Impaired fasting glucose Thyroid Stimulating Hormone Today R73.01 - Impaired fasting glucose Free T4 (Free Thyroxine) Today R73.01 - Impaired fasting glucose Vitamin B12 and Folate Today R73.01 - Impaired fasting glucose Referrals Orthopedics Referral M65.311 - Trigger thumb, right thumb Medications: New fluticasone propionate 50 mcg/actuation (Flonase Allergy Relief) administer into each nostril 2 sprays intranasal DAILY 16 grams 3RF R09.81 - Nasal congestion Coding Level of Care Code Est Pt Prev Care 40-64y(05502) Diagnoses Annual physical exam Z00.00 Idiopathic small fiber sensory neuropathy G60.8 Lumbosacral spondylosis M47.817 Obesity (BMI 30-39.9) E66.9 Tobacco abuse Z72.0 Impaired fasting blood sugar R73.01 Nasal congestion R09.81 Trigger finger of right thumb M65.311 Additional Codes PHQ-9 - 23178 - PHQ-9 Billing: ([id number])
== END 2023-08-17 09:56 | disposition home or self-care (01) ==
PROVIDERS: Visit Provider Internal Medicine
DX: Z00.00 Encounter for general adult medical examination without abnormal findings (principal); E66.9 Obesity, unspecified; Z68.33 Body mass index [BMI] 33.0-33.9, adult; G60.8 Other hereditary and idiopathic neuropathies; M47.817 Spondylosis without myelopathy or radiculopathy, lumbosacral region; Z72.0 Tobacco use; R73.01 Impaired fasting glucose; R09.81 Nasal congestion; M65.311 Trigger thumb, right thumb
CPT/HCPCS: 99396

== ENCOUNTER 2023-08-18 13:32 | Outpatient (REF) | payer OTHER, SELFPAY ==
--- NOTE | 2023-08-18 13:34 | EMG_ITS ---
Chief complaint: History of small fiber neuropathy based on a nerve biopsy. Reports past EMGs have been normal. Continues to have feet numbness and pain. Nondiabetic. Reason for referral: Evaluate for neuropathy Referred by: Geeta Houston NP Procedure done: Bilateral lower extremity NCS/EMG Precautions and/or limitations: None The limb temperature was monitored continuously and remained between 32-36 degrees C during the performance of the NCS. Nerve Conduction Studies Anti Sensory Summary Table ?Stim Site NR Onset (ms) Norm Onset (ms) Peak (ms) Norm Peak (ms) O-P Amp (?V) Norm O-P Amp Site1 Site2 Delta-0 (ms) Dist (cm) Selvin (m/s) Norm Selvin (m/s) Left Sural Anti Sensory (Lat Mall) Calf ? 0.9 2.7 <4.0 5.8 >5.0 Calf Lat Mall 0.9 14.0 156 Site 2 ? 1.1 2.7 5.1 Right Sural Anti Sensory (Lat Mall) Calf ? 2.6 3.1 <4.0 18.1 >5.0 Calf Lat Mall 2.6 14.0 54 Motor Summary Table ?Stim Site NR Onset (ms) Norm Onset (ms) O-P Amp (mV) Norm O-P Amp iAmp (mV) Amp (1st) (%) Site1 Site2 Delta-0 (ms) Dist (cm) Selvin (m/s) Norm Selvin (m/s) Right Peroneal Motor (Ext Dig Brev) Ankle ? 3.0 <4.0 8.1 >2.5 9.8 100.0 Ankle Ext Dig Brev 3.0 0.0 B Fib ? 8.7 7.5 9.0 92.6 B Fib Ankle 5.7 31.0 54 >40 Poplt ? 9.3 7.7 9.2 95.1 Poplt B Fib 0.6 4.5 75 >40 Left Tibial Motor (Abd Fitzpatrick Brev) Ankle ? 4.1 <5 9.8 >2.5 14.7 100.0 Ankle Abd Fitzpatrick Brev 4.1 0.0 Knee ? 10.1 8.0 12.3 81.6 Knee Ankle 6.0 31.0 52 >40 Right Tibial Motor (Abd Fitzpatrick Brev) Ankle ? 3.4 <5 9.9 >2.5 15.8 100.0 Ankle Abd Fitzpatrick Brev 3.4 0.0 Site 3 ? 9.5 9.4 14.1 94.9 EMG ?Side Muscle Nerve Root Ins Act Fibs Psw Amp Dur Poly Recrt Int Pat Comment Right AbdHallucis MedPlantar S1-2 Nml Nml Nml Nml Nml 0 Nml Complete Right AntTibialis Dp Br Peron L4-5 Nml Nml Nml Nml Nml 0 Nml Complete Right PostTibialis Tibial L5, S1 Nml Nml Nml Nml Nml 0 Nml Complete Right MedGastroc Tibial S1-2 Nml Nml Nml Nml Nml 0 Nml Complete Right VastusMed Femoral L2-4 Nml Nml Nml Nml Nml 0 Nml Complete Left AbdHallucis MedPlantar S1-2 Nml Nml Nml Nml Nml 0 Nml Complete Left AntTibialis Dp Br Peron L4-5 Nml Nml Nml Nml Nml 0 Nml Complete Left PostTibialis Tibial L5, S1 Nml Nml Nml Nml Nml 0 Nml Complete Left MedGastroc Tibial S1-2 Nml Nml Nml Nml Nml 0 Nml Complete Left VastusMed Femoral L2-4 Nml Nml Nml Nml Nml 0 Nml Complete Paraspinal EMG ?Side Muscle Nerve Root Ins Act Fibs Psw Comment Right Lumbar Upper Rami Nml Nml Nml Right Lumbar Mid Rami Nml Nml Nml Right Lumbar Lower Rami Nml Nml Nml Left Lumbar Upper Rami Nml Nml Nml Left Lumbar Mid Rami Nml Nml Nml Left Lumbar Lower Rami Nml Nml Nml FINDINGS: All motor and sensory nerves tested showed normal latencies, amplitudes and conduction velocities. Concentric needle EMG was performed in selected muscles of the . Study revealed did not reveal signs of electric abnormalities as shown in the table below. IMPRESSION: 1. This is a normal study. 2. There is no electrodiagnostic evidence for peroneal neuropathy, tibial neuropathy, lumbosacral plexopathy, lumbar radiculopathy, or peripheral neuropathy. CLINICAL COMMENT: Discussed that small fiber neuropathy is usually diagnosed with a nerve biopsy, and not by NCS/EMG. NCS/EMG only tests larger named peripheral nerves. Thank you for your kind referral. Yi Patel MD, REBECCA Board Certified, [place] Board of Physical Medicine and Rehabilitation (ABPMR) Board Certified, [place] Board of Electrodiagnostic Medicine (ABEM) CODIN 03178 x 2 MTDD
== END 2023-08-18 13:33 | disposition home or self-care (01) ==
LOC: HO.NEURO 13:32
PROVIDERS: Visit Provider Nurse Practitioner Family
DX: G60.8 Other hereditary and idiopathic neuropathies (principal); G62.9 Polyneuropathy, unspecified
CPT/HCPCS: 95886; 95909

== ENCOUNTER → 2023-08-18 13:34 | Outpatient (BNV) | payer OTHER, SELFPAY | PROVIDERS: Visit Provider Physical Medicine & Rehabilitation | DX: M79.671 Pain in right foot (principal); M79.672 Pain in left foot; R20.0 Anesthesia of skin | CPT/HCPCS: 95886; 95909 ==

== ENCOUNTER 2023-09-28 08:56 | Outpatient (AMB) | payer OTHER, SELFPAY ==
--- NOTE | 2023-09-28 09:07 | MHC.OFFVIS ---
Intake Vital Signs 09/28/23 09:16 Height 5 ft 1 in Weight 212 lb BMI 40.1 BP 132/80 Blood Pressure Location Lt brachial Position Sitting Pulse 88 Pulse Source Pulse Oximeter Pulse Oximetry (%) 95 Oxygen Delivery Method Room Air Intake Visit Reasons: INP-Polyneuropathy - LVM w/adress Intake Note: Patient presents for Polyneuropathy. Allergies No Known Allergies [No Known Allergies*] Allergy (Verified 09/28/23 09:13) HPI HPI Comments History of Present Illness Details 53 y/o female patient presents for new in-person visit for neuropathy. She was diagnosed with small fiber neuropathy in 2015, confirmed by skin biopsy. Pt reports constant bilateral feet discomfort, burning, sharp, stabbing pain in her ankles and legs, right leg is worse than left. She had a fall in July, due to the ankle and leg pain. Pt tried gabapentin, topiramate, but she stopped taking it, they did not help for the foot and leg pain. Gabapentin made her very groggy in the morning. She has constant discomfort and pain comes and goes, no relieving factors. She tried massage and Epson salt did not help. Pt also had EMG/NCV done and the result was IMPRESSION: 1. This is a normal study. 2. There is no electrodiagnostic evidence for peroneal neuropathy, tibial neuropathy, lumbosacral plexopathy, lumbar radiculopathy, or peripheral neuropathy. Has hx of plantar fasciitis, foot mapping done, Now she feels right thigh numbness and weakness, when she walks. The numbness comes from her lower back, hip and radiated to her thigh. Also reports lower back pain. Has hx of SI joint pain, and seeing sports medicine, had gel injection done. Hx of knee fx with meniscus tore Pt states that she does not sleep well, restless legs, constantly moving due to leg pain. She snores, wakes up multiple times at night and having non refreshing sleep with daytime tiredness. [facility] Medical History (Updated 09/28/23 @ 10:12 by Russell Abdul CNP) Closed fracture of right distal fibula Idiopathic small fiber sensory neuropathy Diverticulitis Breast cancer screening other than mammogram Clostridium difficile diarrhea Degenerative disc disease at L5-S1 level Tobacco abuse Tinnitus Obesity (BMI 30-39.9) Vitamin D deficiency Neuropathy Surgical History H/O hand surgery Family History Mother Breast cancer Asthma Arthritis Father No problems noted. Maternal Aunt Colon cancer Brother Schizophrenia Other Mental health disorder Social History Household Members: Family Housing: House Are you a primary clinical care leader to a significant other at home: No Do you presently have visiting nurse or other home services: No Alcohol intake: current Alcohol intake frequency: a few times a week Alcohol type: beer and wine Comment: once a week 4 drinks Patient Tobacco Use Status: Current everyday Tobacco user Tobacco use type: Cigarette Cigarette Packs Per Day: 0.5 Cigarettes Per Day: 10 Years Smoked: 30 e-Cigarette/Vaping Use: Never Used Second Hand Smoke Exposure: Yes service: No Current occupational status: employed 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 & [employer] 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 Cognitive needs: No Hearing needs: No Vision needs: Yes (glasses) Review of Systems Const All systems reviewed & are unremarkable except as noted in HPI and below Physical Exam Vital Signs: Last Vital Signs Pulse 88 09/28/23 09:16 BP 132/80 09/28/23 09:16 Pulse Ox 95 09/28/23 09:16 Oxygen Delivery Method Room Air 09/28/23 09:16 BMI result Body Mass Index 40.1 Const General: cooperative Nutritional Appearance: obese Orientation/consciousness: patient oriented x3 Neck Neck: Yes full ROM and Yes supple Resp Effort & Inspection: normal respiratory effort and able to speak in complete sentences Neuro General: patient oriented x3, gait normal and moves all extremities Cranial nerves: Yes CN's II-XII intact bilaterally Gait exam (Neuro): Normal gait present Motor exam (neuro): 5/5 motor strength present throughout Deep tendon reflexes (DTR's): Right brachioradialis reflex intensity grade: 2+ and Left brachioradialis reflex intensity grade: 2+ Psych Appearance: grossly normal Mental Status: mental status grossly normal Speech and movement: Normal speech and movement present Affect: normal affect Attitude: cooperative Assessment & Plan Assessment & Plan (1) Lower back pain: Code(s): M54.50 - Low back pain, unspecified (2) Numbness of lower extremity: Code(s): R20.0 - Anesthesia of skin (3) Idiopathic small fiber sensory neuropathy: Code(s): G60.8 - Other hereditary and idiopathic neuropathies (4) Neuropathy: Comment: idiopathic small fiber neuropathy July 2016 Dr. Peña Code(s): G62.9 - Polyneuropathy, unspecified Plan Reviewed lab result, and will check NICHELLE and Hu antibody. Advised patient to undergo lumbar xray to assess lower back pain and leg numbness. Advised patient to undergo in lab sleep study to assess sleep apnea and restless legs, and PLMD. Advised patient to try ropinirole 0.25 mg, 1-4 tabs qHS. Orders: Orders NICHELLE Reflex Titer and Pattern Today G60.8 - Other hereditary and idiopathic neuropathies, G62.9 - Polyneuropathy, unspecified XR lumbar spine 2-3V Today M54.50 - Low back pain, unspecified, R20.0 - Anesthesia of skin HU Antibody Today G60.8 - Other hereditary and idiopathic neuropathies, G62.9 - Polyneuropathy, unspecified RT PSG in-lab sleep study Today E66.01 - Morbid (severe) obesity due to excess calories, G25.81 - Restless legs syndrome, R06.83 - Snoring, R40.0 - Somnolence Medications: New ropinirole 1-4 tab orally bedtime; administer 1-3 hours before bedtime 30 days 120 tabs 4RF Coding Level of Care Code New Pt Level 4 (15546) Diagnoses Lower back pain M54.50 Numbness of lower extremity R20.0 Idiopathic small fiber sensory neuropathy G60.8 Neuropathy G62.9
[2023-09-28 09:16] VITALS: BP 132/80; PULSE 88; O2SAT 95; BMI 40.1
== END 2023-09-28 10:11 | disposition home or self-care (01) ==
PROVIDERS: PCP Internal Medicine; Visit Provider Nurse Practitioner Family
DX: M54.50 Low back pain, unspecified (principal); R20.0 Anesthesia of skin; G60.8 Other hereditary and idiopathic neuropathies; G62.9 Polyneuropathy, unspecified
CPT/HCPCS: 99204

== ENCOUNTER → 2023-09-28 08:56 | Outpatient (BNVA) | payer OTHER, SELFPAY | PROVIDERS: PCP Internal Medicine; Visit Provider Nurse Practitioner Family ==

== ENCOUNTER 2023-09-29 13:05 | Outpatient (AMB) | payer OTHER, SELFPAY ==
[2023-09-29 13:16] VITALS: BMI 40.1
--- NOTE | 2023-09-29 13:16 | MHC.OFFVIS ---
Intake Vital Signs 09/29/23 13:16 Height 5 ft 1 in Weight 212 lb BMI 40.1 Intake Visit Reasons: new prob- Trigger thumb, right thumb Intake Note: Dee 53 yr old female presents today for a new problem for her right thumb. States her right thumb has been locking in place, has stiffnes and shooting pain that radtaes down her thumb. States this started in June and has worsen since. Denies injury, numbness, tingling or past treatment. Allergies No Known Allergies [No Known Allergies*] Allergy (Verified 09/29/23 13:24) HPI new prob- Trigger thumb, right thumb HPI Details Dee is a 53 year old right hand dominant woman who presents with complaints of painful locking of her right thumb. She reports her right thumb locking for ~3 months now. She feels this has been worsening over time and is interfering with her daily activity. She denies any numbness, tingling, or prior treatment. She is a smoker. 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 Maternal Aunt Colon cancer Brother Schizophrenia Other Mental health disorder Social History Household Members: Family Housing: House Are you a primary intensive care specialist to a significant other at home: No Do you presently have visiting nurse or other home services: No Alcohol intake: current Alcohol intake frequency: a few times a week Alcohol type: beer and wine Comment: once a week 4 drinks Patient Tobacco Use Status: Current everyday Tobacco user Tobacco use type: Cigarette Cigarette Packs Per Day: 0.5 Cigarettes Per Day: 10 Years Smoked: 30 e-Cigarette/Vaping Use: Never Used Second Hand Smoke Exposure: Yes service: No Current occupational status: employed 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 Cognitive needs: No Hearing needs: No Vision needs: Yes (glasses) Review of Systems Const All systems reviewed & are unremarkable except as noted in HPI and below Physical Exam Vital Signs: BMI result Body Mass Index 40.1 Const General: cooperative, healthy appearing and no acute distress Orientation/consciousness: patient oriented x3 HEENT Head: Yes normocephalic and Yes atraumatic Eyes EOM: EOMs intact bilaterally Resp Effort & Inspection: normal respiratory effort and able to speak in complete sentences Cardio Jugular venous distension: no JVD Skin General skin exam: turgor normal Rashes: no rashes Neuro General: patient oriented x3 Extrem Other: Evaluation of Right Upper Extremity: The patient is alert, oriented, and in no acute distress Neuro: Median, Ulnar, Radial nerves motor and sensory intact and sensation is normal to the tips of all digits Vascular: Cap refill brisk ROM: She can make a fist and extend all her digits Visible and palpable locking and catching of the thumb Tender over the a1 demetrice of the thumb Skin: No lacerations or abrasions. General: No Ecchymosis. No Erythema or evidence of infection. Psych Appearance: grossly normal Affect: normal affect Attitude: cooperative Office Procedures Fracture Care Details: No fracture, injection Fracture Billing Code: Fracture Billing Code Assessment & Plan Assessment & Plan (1) Trigger finger of right thumb: Code(s): M65.311 - Trigger thumb, right thumb Plan Assessment & Plan: 1. Right trigger thumb I educated her about this condition I discussed operative and non-operative treatment options The patient would like to proceed with an injection Injection #1: The risks and benefits of a steroid injection including but not limited to risk of damage to blood vessels, nerves, tendons, infection, skin bleaching, failure to improve symptoms, increased pain, and possible need for further injections or other intervention were discussed with the patient and the patient wishes to proceed with the steroid injection. Once consent was obtained, I sterilely prepped the area over the A1 demetrice of the flexor tendon sheath of the right thumb. I then injected the flexor tendon sheath with a combination of 1 mL of dexamethasone (4mg/ml), and 1% lidocaine. The patient tolerated the procedure well with no complications. If the patient continues to have locking and catching 4-6 weeks following this injection, they may call to schedule appointment to discuss alternative treatment options Follow-up prn Scribed for Kelsey Doe MD by Deondre Ramirez, medical massage therapist, on 09/29/23 at 1:30 PM, EST. Coding Level of Care Code New Pt Level 3 (63155) Diagnoses Trigger finger of right thumb M65.311 CPT Codes Fracture Care - Fracture Billing Code: Fracture Billing Code ([id number])
== END 2023-09-29 13:57 | disposition home or self-care (01) ==
PROVIDERS: PCP Internal Medicine; Visit Provider Orthopaedic Surgery
DX: M65.311 Trigger thumb, right thumb (principal)
CPT/HCPCS: 20550; 99214

== ENCOUNTER → 2023-09-29 13:05 | Outpatient (BNVA) | payer OTHER, SELFPAY | PROVIDERS: PCP Internal Medicine; Visit Provider Orthopaedic Surgery | DX: M65.311 Trigger thumb, right thumb (principal) | CPT/HCPCS: 20550; J1100 ==

== ENCOUNTER 2023-10-02 08:24 | Outpatient (REF) | payer OTHER, SELFPAY ==
--- NOTE | ~2023-10-02 | XR_ITS ---
EXAMINATION: XR lumbar spine 2-3V CLINICAL INFORMATION: Reason for Exam M54.50 - Low back pain, unspecified COMPARISON: None TECHNIQUE: 3 views of the lumbar spine FINDINGS: 5 nonrib-bearing lumbar-type vertebral bodies. Vertebral body heights are maintained. Alignment is maintained. Mild multilevel degenerative disc disease with loss of disc space height, facet arthropathy and disc osteophyte complexes. Paravertebral soft tissues are unremarkable. XR/XR lumbar spine 2-3V IMPRESSION: Mild spondylosis of the lumbar spine, as above detailed.
[2023-10-02 09:18] LABS: Estimated Average Glucose 111 mg/dL; Hemoglobin A1c % 5.5 % (<6.0)
[2023-10-02 09:48] LABS: Alanine Aminotransferase 20 U/L (0-31); Albumin Level 4.1 g/dL (3.5-5.0); Alkaline Phosphatase 121 U/L (39-117); Anion Gap 11 (12-20); Aspartate Amino Transferase 18 U/L (5-31); Bilirubin Total 0.5 mg/dL (0.0-1.0); Blood Urea Nitrogen 11 mg/dL (9-16); Calcium 9.3 mg/dL (8.4-10.2); Carbon Dioxide 30 mmol/L (22-29); Chloride 106 mmol/L (96-108); Estimated Glomerular Filt Rate > 60; Glucose Random 101 mg/dL (60-115); Potassium 4.3 mmol/L (3.3-5.1); Sodium 143 mmol/L (135-145); Total Protein 6.7 g/dL (6.5-8.0)
[2023-10-02 09:53] LABS: Vitamin D 25-OH Total 15.9 ng/mL (>30)
[2023-10-02 10:06] LABS: Free T4 (Free Thyroxine) 0.85 ng/dL (0.71-1.85); Thyroid Stimulating Hormone 2.09 uIU/mL (0.32-4.0)
[2023-10-02 10:34] LABS: Folate 5.3 ng/mL (> or = 4.0); Vitamin B12 411 pg/mL (200-900)
[2023-10-05 11:34] LABS: Anti Nuclear Antibody Screen NEGATIVE (NEGATIVE)
[2023-10-13 18:39] LABS: Hu Antibody Screen, IFA Serum NEGATIVE (NEGATIVE)
== END 2023-10-02 08:25 | disposition home or self-care (01) ==
LOC: HO.XRAY 08:24
PROVIDERS: Nurse Practitioner Family; PCP Internal Medicine; Visit Provider Internal Medicine
DX: M54.50 Low back pain, unspecified (principal); R73.01 Impaired fasting glucose; R79.89 Other specified abnormal findings of blood chemistry; G62.9 Polyneuropathy, unspecified; R20.0 Anesthesia of skin; G60.8 Other hereditary and idiopathic neuropathies
CPT/HCPCS: 36415; 72100; 80053; 82306; 82607; 82746; 83036; 84181; 84439; 84443; 86038; 86255; 86256

== ENCOUNTER → 2023-10-27 20:30 | Outpatient (REF) | payer OTHER, SELFPAY | LOC: HO.SL 20:30 | PROVIDERS: PCP Internal Medicine; Visit Provider Nurse Practitioner Family | DX: G47.33 Obstructive sleep apnea (adult) (pediatric) (principal); R06.83 Snoring; R40.0 Somnolence; G25.81 Restless legs syndrome; E66.01 Morbid (severe) obesity due to excess calories | CPT/HCPCS: 95810 ==

== ENCOUNTER → 2023-10-27 22:01 | Outpatient (BNV) | payer OTHER, SELFPAY | PROVIDERS: PCP Internal Medicine; Visit Provider Psychiatry & Neurology Neurology | DX: G47.33 Obstructive sleep apnea (adult) (pediatric) (principal) | CPT/HCPCS: 95810 ==

== ENCOUNTER 2023-11-09 07:55 | Outpatient (AMB) | payer OTHER, SELFPAY ==
--- NOTE | 2023-11-09 08:02 | MHC.OFFVIS ---
Vital Signs 11/09/23 08:04 Height 5 ft 1 in BP 132/74 Blood Pressure Location Rt brachial Position Sitting Intake Visit Reasons: follow up - LVM w/address [place] Intake Note: Patient presents for follow up. Allergies No Known Allergies [No Known Allergies*] Allergy (Verified 11/09/23 08:04) Medication List - Last Reconciled 11/09/23 by Russell Abdul CNP albuterol sulfate 90 mcg/actuation 2 puffs inhalation Q4-6H PRN fexofenadine (Tiffanie Allergy) 60 mg PO Q12H fluticasone propionate 50 mcg/actuation (Flonase Allergy Relief) 2 sprays intranasal DAILY ibuprofen 600 mg PO Q6H PRN ropinirole 1-4 tab orally bedtime; administer 1-3 hours before bedtime 30 days tolterodine ER (Detrol LA) 2 mg PO DAILY HPI Comments Details: 53 y/o female patient presents for follow up of neuropathy and sleep study. The PSG sleep study result was significant for a mild degree of sleep apnea with increased severity in REM sleep. The AHI was 12/hr, oxygen samir was 71% with below 88% for 50 min. Supplemental oxygen at 1LPM was used during the sleep study. Pt states that she does not sleep well, restless legs, constantly moving due to leg pain. She snores, wakes up multiple times at night and having non refreshing sleep with daytime tiredness. Pt tried ropinirole 0.25 mg, 1 tab at bedtime, but it did not improve the restless legs or sleep. Her vitamin D level was low, 15.9 and started vitamin D supplement. She was diagnosed with small fiber neuropathy in 2015, confirmed by skin biopsy. Pt reports constant bilateral feet discomfort, burning, sharp, stabbing pain in her ankles and legs, right leg is worse than left. She had a fall in July, due to the ankle and leg pain. Pt tried gabapentin, topiramate, but she stopped taking it, they did not help for the foot and leg pain. Gabapentin made her very groggy in the morning. She has constant discomfort and pain comes and goes, no relieving factors. She tried massage and Epson salt did not help. Pt also had EMG/NCV done and the result was normal study. No evidence of neuropathy, tibial neuropathy, lumbosacaral plexopathy, lumbar radiculopathy or peripheral neuropathy. Has hx of plantar fasciitis, foot mapping done, She can have right thigh numbness and weakness, when she walks. The numbness comes from her lower back, hip and radiated to her thigh. Also reports lower back pain. Lumbar X ray result was mild spondylosis. Has hx of SI joint pain, and seeing sports medicine, had gel injection done. Hx of knee fx with meniscus tore [facility] Medical History (Updated 11/10/23 @ 16:10 by Russell Abdul CNP) Closed fracture of right distal fibula Idiopathic small fiber sensory neuropathy Diverticulitis Clostridium difficile diarrhea Degenerative disc disease at L5-S1 level Tinnitus Obesity (BMI 30-39.9) Vitamin D deficiency Neuropathy Surgical History History of colonoscopy H/O hand surgery Family History Mother Breast cancer Asthma Arthritis Father No problems noted. Maternal Aunt Colon cancer Brother Schizophrenia Other Mental health disorder Social History Household Members: Family Housing: House Are you a primary plant health care technician to a significant other at home: No Do you presently have visiting nurse or other home services: No Alcohol intake: current Alcohol intake frequency: a few times a week Alcohol type: beer and wine Comment: once a week 4 drinks Patient Tobacco Use Status: Current everyday Tobacco user Tobacco use type: Cigarette Cigarette Packs Per Day: 0.5 Cigarettes Per Day: 10 Years Smoked: 30 e-Cigarette/Vaping Use: Never Used Second Hand Smoke Exposure: Yes service: No Current occupational status: employed 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 Cognitive needs: No Hearing needs: No Vision needs: Yes (glasses) Review of Systems Const All systems reviewed & are unremarkable except as noted in HPI and below Physical Exam Vital Signs: Last Vital Signs BP 132/74 11/09/23 08:04 Const General: cooperative Nutritional Appearance: obese Orientation/consciousness: patient oriented x3 Neck Neck: Yes full ROM and Yes supple Resp Effort & Inspection: normal respiratory effort and able to speak in complete sentences Neuro General: patient oriented x3, gait normal and moves all extremities Cranial nerves: Yes CN's II-XII intact bilaterally Gait exam (Neuro): Normal gait present Motor exam (neuro): 5/5 motor strength present throughout Deep tendon reflexes (DTR's): Right brachioradialis reflex intensity grade: 2+ and Left brachioradialis reflex intensity grade: 2+ Psych Appearance: grossly normal Mental Status: mental status grossly normal Speech and movement: Normal speech and movement present Affect: normal affect Attitude: cooperative Assessment & Plan Assessment & Plan (1) Lower back pain: Code(s): M54.50 - Low back pain, unspecified Category: Medical (2) Numbness of lower extremity: Code(s): R20.0 - Anesthesia of skin Category: Medical (3) Idiopathic small fiber sensory neuropathy: Code(s): G60.8 - Other hereditary and idiopathic neuropathies Category: Medical (4) Neuropathy: Comment: idiopathic small fiber neuropathy July 2016 Dr. Peña Code(s): G62.9 - Polyneuropathy, unspecified Category: Medical (5) TRAMAINE (obstructive sleep apnea): Comment: Mild degree of sleep apnea with increased severity in REM sleep and sleep related hypoxemia. AHI was 12 and oxygen samir was 71% with below 88% for 50 min. Code(s): G47.33 - Obstructive sleep apnea (adult) (pediatric) Category: Medical Plan Advised patient to undergo in lab titration study to determine the ideal treatment pressure and asses for need for supplemental oxygen. Advised patient to try ropinirole 0.25 mg, 1-4 tabs qHS for restless legs. Continue to take vitmain D supplement. Orders: Orders RT PSG in-lab sleep titration 11/10/23 G47.33 - Obstructive sleep apnea (adult) (pediatric) Medications: New cholecalciferol (vitamin D3) 25 mcg PO DAILY 30 days 30 caps 6RF magnesium oxide 400 mg PO BEDTIME 30 days 30 tabs 3RF Coding Level of Care Code Est Pt Level 4 (23288) Diagnoses Lower back pain M54.50 Numbness of lower extremity R20.0 Idiopathic small fiber sensory neuropathy G60.8 Neuropathy G62.9 TRAMAINE (obstructive sleep apnea) G47.33
[2023-11-09 08:04] VITALS: BP 132/74
== END 2023-11-09 08:35 | disposition home or self-care (01) ==
PROVIDERS: PCP Internal Medicine; Visit Provider Nurse Practitioner Family
DX: M54.50 Low back pain, unspecified (principal); R20.0 Anesthesia of skin; G60.8 Other hereditary and idiopathic neuropathies; G62.9 Polyneuropathy, unspecified; G47.33 Obstructive sleep apnea (adult) (pediatric)
CPT/HCPCS: 99214

== ENCOUNTER → 2023-11-09 07:55 | Outpatient (BNVA) | payer OTHER, SELFPAY | PROVIDERS: PCP Internal Medicine; Visit Provider Nurse Practitioner Family ==

== ENCOUNTER 2023-11-15 13:08 | Outpatient (AMB) | payer OTHER, SELFPAY ==
[2023-11-15 13:11] VITALS: BP 124/78; PULSE 89; O2SAT 95; BMI 40.2
--- NOTE | 2023-11-15 13:11 | MHC.PC.OV ---
Vital Signs 11/15/23 13:11 Height 5 ft 1 in Weight 213 lb BMI 40.2 BP 124/78 Blood Pressure Location Lt brachial Position Sitting Pulse 89 Pulse Source Pulse Oximeter Pulse Oximetry (%) 95 Oxygen Delivery Method Room Air Intake Visit Reasons: IGT, idiopathic LE neuropathy Intake Note: Patient is here to follow up Engagement Mgr Required: No Allergies No Known Allergies [No Known Allergies*] Allergy (Verified 11/15/23 13:11) Tobacco use date assessed: 11/15/23 Dental Screening Dental Screen Date: 11/15/23 HPI IGT, idiopathic LE neuropathy HPI Details 53-year-old morbidly obese female smoker with lumbosacral spondylosis and idiopathic small fiber sensory neuropathy with impaired glucose tolerance coming in for follow-up. Last seen in August 2023. Patient is up-to-date with mammogram and colonoscopy March 2022 review of the notes was seen by Neurology recommended in-lab titration of the sleep study as well as ropinirole 0.25 mg 1-4 tablets at bedtime for the restless leg. Sleep study was done in October 2023 showing mild degree of sleep apnea but increased severity in rapid eye movement and sleep-related hypoxemia AHI of 12 per hour low oxygen of 71%. CT scan - cancelled to end of this month [facility] Medical History (Updated 11/10/23 @ 16:10 by Russell Abdul CNP) Closed fracture of right distal fibula Idiopathic small fiber sensory neuropathy Diverticulitis Clostridium difficile diarrhea Degenerative disc disease at L5-S1 level Tinnitus Obesity (BMI 30-39.9) Vitamin D deficiency Neuropathy Surgical History History of colonoscopy H/O hand surgery Family History Mother Breast cancer Asthma Arthritis Father No problems noted. Maternal Aunt Colon cancer Brother Schizophrenia Other Mental health disorder Social History Household Members: Family Housing: House Are you a primary memory care program director to a significant other at home: No Do you presently have visiting nurse or other home services: No Alcohol intake: current Alcohol intake frequency: a few times a week Alcohol type: beer and wine Comment: once a week 4 drinks Patient Tobacco Use Status: Current everyday Tobacco user Tobacco use type: Cigarette Cigarette Packs Per Day: 0.5 Cigarettes Per Day: 10 Years Smoked: 30 Packs Per Year: 15 Packs per year/per ci.00 e-Cigarette/Vaping Use: Never Used Second Hand Smoke Exposure: Yes service: No Current occupational status: employed 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 1. Little interest or pleasure in doing things: not at all 2. Feeling down, depressed, or hopeless: not at all 3. Trouble falling or staying asleep, or sleeping too much: not at all 4. Feeling tired or having little energy: not at all 5. Poor appetite or overeating: not at all 6. Feeling bad about yourself - or that you are a failure or have let yourself or your family down: not at all 7. Trouble concentrating on things, such as reading the newspaper or watching television: not at all 8. Moving or speaking so slowly that other people could have noticed. Or the opposite - being so fidgety or restless that you have been moving around a lot more than usual: not at all 9. Thoughts that you would be better off or of hurting yourself in some way: not at all Total score: 0 Depression Screening Interpretation: Negative Depression Screening Done: Yes Source: Developed by Drs. Jero Tan, Renae Bedoya, Salvatore Chavis and colleagues, with an educational kassidy from [employer]. Thrive Questionnaire Date Thrive assessed: 11/15/23 I am a: Patient What is your living situation today?: I have a steady place to live Within the past 12 months, did the food you bought not last and you didn't have the money to get more?: Never true Within the past 12 months, did you worry whether your food would run out before you got money to buy more?: Never true Do you have trouble paying for medicines?: No Do you have trouble getting transportation to medical appointments?: No Do you have trouble paying your heating and electricity bill?: No Do you have trouble taking care of your child, family member or friend?: No Do you have trouble with day-to-day activities such as bathing, preparing meals, shopping, managing finances, etc.?: No Are you currently unemployed and looking for a job?: No Are you interested in more education?: No Please select the resources that you would like help with: None THRIVE Score: 0 AUDIT C Alcohol Use Questionnaire (AUDIT-C) 1. How often do you have a drink containing alcohol?: 2-3 times a week 2. How many drinks containing alcohol do you have on a typical day when you are drinking?: 3 or 4 3. How often do you have six or more drinks on one occasion?: Monthly Total Score: 6 Score Reviewed/Action Taken: Yes ELISEO-7 AMB Questionnaire ELISEO-7 Date ELISEO - 7 assessed: 08/17/23 Source: Developed by Drs. Jero Tan, Renae Bedoya, Salvatore Chavis and colleagues, with an educational kassidy from [employer]. Physical exam (Primary Care) Vital Signs: Last Vital Signs Pulse 89 11/15/23 13:11 BP 124/78 11/15/23 13:11 Pulse Ox 95 11/15/23 13:11 Oxygen Delivery Method Room Air 11/15/23 13:11 BMI result Body Mass Index 40.2 Tobacco/Smoking Status: Tobacco use Status Tobacco use date assessed 11/15/23 11/15/23 13:12 Patient Tobacco Use Status Current everyday Tobacco 11/15/23 13:12 Tobacco use type Cigarette 11/15/23 13:12 e-Cigarette/Vaping Use Never Used 11/15/23 13:12 PHQ-9: PHQ-9 Score PHQ-9: Total score 0 11/15/23 13:19 Depression Screening Interpretation: Negative Thrive Assessment: Date of Thrive Assessment Date Thrive assessed 11/15/23 11/15/23 13:12 Const General: alert; No acute distress Eyes Conjunctivae: conjunctivae normal Resp Auscultation: clear to auscultation bilaterally Cardio Rate: regular rate Rhythm: regular rhythm GI Inspection: Yes normal to inspection Extrem General: Yes normal to inspection and No edema Assessment and Plan Assessment & Plan (1) TRAMAINE (obstructive sleep apnea): Comment: Mild degree of sleep apnea with increased severity in REM sleep and sleep related hypoxemia. AHI was 12 and oxygen samir was 71% with below 88% for 50 min. Code(s): G47.33 - Obstructive sleep apnea (adult) (pediatric) Plan: Patient is advised to do an in-lab sleep titration study (2) Obesity, Class III, BMI 40-49.9 (morbid obesity): Code(s): E66.01 - Morbid (severe) obesity due to excess calories Plan: Diet and exercise (3) Restless legs: Code(s): G25.81 - Restless legs syndrome Plan: Patient was advised to start on ropinirole 0.25 mg 1-4 tablets at bedtime (4) Nicotine dependence, cigarettes, uncomplicated: Comment: (current smoker) Code(s): F17.210 - Nicotine dependence, cigarettes, uncomplicated Plan: Strongly advised to stop smoking! (5) Impaired fasting blood sugar: Code(s): R73.01 - Impaired fasting glucose Plan: Decrease the amount of carbohydrate intake, pasta, bread, rice and potatoes are all sugar and that is aside from all the sweet stuff, remember that fruits are good but they are Sweet also. (6) Idiopathic small fiber sensory neuropathy: Code(s): G60.8 - Other hereditary and idiopathic neuropathies Plan: Patient is being evaluated by Neurology. Coding Level of Care Code Est Pt Level 4 (67629) Diagnoses TRAMAINE (obstructive sleep apnea) G47.33 Obesity, Class III, BMI 40-49.9 (morbid obesity) E66.01 Restless legs G25.81 Nicotine dependence, cigarettes, uncomplicated F17.210 Impaired fasting blood sugar R73.01 Idiopathic small fiber sensory neuropathy G60.8 Additional Codes PHQ-9 - 87683 - PHQ-9 Billing: ([id number])
== END 2023-11-15 13:37 | disposition home or self-care (01) ==
PROVIDERS: PCP Internal Medicine; Visit Provider Internal Medicine
DX: R73.01 Impaired fasting glucose (principal); G47.33 Obstructive sleep apnea (adult) (pediatric); G25.81 Restless legs syndrome; F17.210 Nicotine dependence, cigarettes, uncomplicated; G60.8 Other hereditary and idiopathic neuropathies
CPT/HCPCS: 99214

== ENCOUNTER → 2023-11-25 21:33 | Outpatient (REF) | payer OTHER, SELFPAY | LOC: HO.SL 21:33 | PROVIDERS: PCP Internal Medicine; Visit Provider Nurse Practitioner Family | DX: G47.33 Obstructive sleep apnea (adult) (pediatric) (principal) | CPT/HCPCS: 95811 ==

== ENCOUNTER → 2023-11-25 21:34 | Outpatient (BNV) | payer OTHER, SELFPAY | PROVIDERS: PCP Internal Medicine; Visit Provider Psychiatry & Neurology Neurology | DX: G47.33 Obstructive sleep apnea (adult) (pediatric) (principal) | CPT/HCPCS: 95811 ==

== ENCOUNTER 2023-12-03 09:26 | Outpatient (AMB) | payer OTHER, SELFPAY ==
--- NOTE | 2023-12-03 07:47 | A.OFFVIS_ITS ---
Intake Visit Reasons: Current Smoker Allergies No Known Allergies [No Known Allergies*] Allergy (Verified 11/15/23 13:11) HPI HPI Current Smoker: Details: Initial visit for this 53yo smoker with a 20PYH. Patient has been smoking since age 20 for 33 years at 1/2-3/4ppd. . Denies marijuana use. Reports social second hand smoke exposure. Denies exposure to chemicals or substances like asbestos. . Denies known family history of lung cancer. Denies personal history of cancers. Denies chest CT in last year. . Denies recent travel outside the [place]. Denies recent respiratory illness or recent hospitalization for respiratory issues. Reports testing positive for COVID. Admits receiving COVID Vaccine. x 3. . Recently diagnosed with mild TRAMAINE and getting cpap titrated. Denies fever, chills, new/worsening cough, hemoptysis, hoarseness or dysphagia. Denies significant chest pain, significant dyspnea or unintentional weight loss. Patient Lung Cancer Screening Questionnaire reviewed with patient by provider. . Shared Decision Making Completed. Patient meets criteria. Discussed in detail with patient, the risk vs benefit of LDCT screening. Patient consents to proceed with scan. Discussed smoking cessation. [facility] Medical History (Updated 12/03/23 @ 09:47 by Eduarda Knox PA-C) Idiopathic small fiber sensory neuropathy Nicotine dependence, cigarettes, uncomplicated Obesity, Class III, BMI 40-49.9 (morbid obesity) TRAMAINE (obstructive sleep apnea) Degenerative disc disease at L5-S1 level Closed fracture of right distal fibula Diverticulitis Clostridium difficile diarrhea Tinnitus Vitamin D deficiency Postmenopausal Surgical History (Updated 12/03/23 @ 09:38 by Eduarda Knox PA-C) History of hand surgery History of colonoscopy Family History Mother Breast cancer Asthma Arthritis Father No problems noted. Maternal Aunt Colon cancer Brother Schizophrenia Other Mental health disorder Social History (Updated 12/03/23 @ 09:47 by Eduarda Knox PA-C) Household Members: Family Housing: House Are you a primary career technology teacher to a significant other at home: No Do you presently have visiting nurse or other home services: No Alcohol intake: current Alcohol intake frequency: a few times a week Alcohol type: beer and wine Comment: once a week 4 drinks Patient Tobacco Use Status: Current everyday Tobacco user Tobacco use type: Cigarette Cigarette Packs Per Day: 0.5 Cigarettes Per Day: 10 Years Smoked: (onset 20yo, 1/2-3/4ppd x 33yrs, 20pyh) e-Cigarette/Vaping Use: Never Used Second Hand Smoke Exposure: Yes service: No Current occupational status: employed 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 - Patient meets criteria for LDCT for lung cancer screening purposes and is asymptomatic. - Smoking cessation counseling offered. Patients can always call [phone]. - Will arrange for a LDCT scan of the chest for screening purposes at [facility]. - Risks, benefits, and alternatives were discussed in detail and the patient agrees to proceed. - Risks discussed include but are not limited to: radiation exposure, anxiety during testing and while awaiting results, false negatives, false positives and possibility of additional intervention such as further imaging or surgical procedures for benign disease. - Benefits are obviously detection of lung cancer at an early stage which can lead to improved outcomes. - Discussed the importance of screening program compliance with adherence to yearly LDCT scan as scheduled - or sooner interval scans for personalized screening regimen. - Discussed follow up plan. Our office will send a letter discussing results and if needed set up phone call and office visit based on CT findings. - Patient educated on results categorization and the management decisions for suspicious findings potentially found on the screening LDCT scan. Any patient with a Lung RADS score of 3 or 4 will be reviewed by a multidisciplinary team at [facility] to form a plan of action in regards to scan findings. - If further work up is warranted for a suspicious lung finding this will be followed by the Lung Cancer Screening program in conjunction with the Thoracic Surgery Department at [facility]. - A copy of the office note and LDCT will be sent to the patient's PCP - as well as documentation on any associated further plans of care. - Incidental findings on LDCT are the PCP's responsibility. These findings are indicated with an S finding on the LDCT Assessment. A note discussing the findings will be sent to the PCP who is then responsible for further management. - All questions answered.? Coding Level of Care Code Lung Cancer Screening G0296 Diagnoses Nicotine dependence, cigarettes, uncomplicated F17.210
== END 2023-12-03 09:54 | disposition home or self-care (01) ==
PROVIDERS: PCP Internal Medicine; Referring Provider Internal Medicine; Visit Provider Physician Assistant Medical
DX: F17.210 Nicotine dependence, cigarettes, uncomplicated (principal)
CPT/HCPCS: G0296

== ENCOUNTER 2023-12-03 09:46 | Outpatient (REF) | payer OTHER, SELFPAY ==
--- NOTE | ~2023-12-03 | CT_ITS ---
EXAMINATION: CT LOW-DOSE SCREENING CHEST WITHOUT CONTRAST CLINICAL INFORMATION: Nicotine dependence, cigarettes, uncomplicated. The patient is a current smoker with a 30 pack-year history of smoking. COMPARISON: Chest x-ray 01/30/2023. TECHNIQUE: Multidetector volumetric CT imaging of the chest is performed on a Siemens SOMATOM Definition scanner without contrast using low dose technique. Additional 2D coronal and sagittal reformatted images and axial 3D maximum intensity projection (MIP) images are generated on the CT workstation. This CT examination was performed using dose optimization techniques as appropriate, variously including the following: *Automated exposure control. *Adjustment of mA and/or kV according to patient size (this includes techniques or standardized protocols for targeted exams where dose is matched to indication/reason for exam; i.e. extremities or head). *Use of iterative reconstruction technique. TOTAL EXAM DLP: 60 mGy-cm. CTDIvol: 1.81 mGy. FINDINGS: PULMONARY NODULES: There is a 3 mm nodule seen in the left upper lobe (5:110). No concerning nodule is seen. LUNGS: Lungs bilaterally symmetrically expanded. Moderate emphysematous changes are present along with mild diffuse bronchial thickening. No effusion or pneumothorax. Central airways patent. MEDIASTINUM: No mediastinal, hilar or axillary adenopathy or free fluid collection. CORONARY ARTERY CALCIFICATION: None visualized on this study. THYROID GLAND: Unremarkable to the extent seen. CARDIOVASCULAR STRUCTURES: Aortic and heart size normal. No pericardial effusion. CHEST WALL/AXILLA: Unremarkable. UPPER ABDOMEN: There is hepatic steatosis. OSSEOUS STRUCTURES: No suspicious focal findings. CT/CT lung screening IMPRESSION: Unremarkable examination. ASSESSMENT: 1. Lung-RADS Category 2: Benign appearance or behavior of nodules. N/A. 2. Lung-RADS Category S: Negative. There are no clinically significant or potentially clinically significant findings not related to the lungs requiring urgent additional evaluation. RECOMMENDATION: Continued routine annual low-dose CT lung screening in 1 year is recommended. An order for CT CHEST LOW DOSE CANCER SCREENING ([id number]) can be placed.
== END 2023-12-03 09:47 | disposition home or self-care (01) ==
LOC: HO.CT 09:46
PROVIDERS: PCP Internal Medicine; Visit Provider Nurse Practitioner Family
DX: Z12.2 Encounter for screening for malignant neoplasm of respiratory organs (principal); F17.210 Nicotine dependence, cigarettes, uncomplicated
CPT/HCPCS: 71271; G0296

== ENCOUNTER 2024-01-18 12:13 | Outpatient (AMB) | payer OTHER, SELFPAY ==
[2024-01-18 12:23] VITALS: BP 146/90; PULSE 94; TEMP 36.6; O2SAT 97
--- NOTE | 2024-01-18 12:23 | MHC.OFFWIV ---
Intake Vital Signs 01/18/24 12:23 Height 5 ft 1 in BP 146/90 H Blood Pressure Location Rt brachial Position Sitting Pulse 94 Pulse Source Pulse Oximeter Temp 97.8 F Temp Source Temporal Artery Scan Pulse Oximetry (%) 97 Oxygen Delivery Method Room Air Intake Visit Reasons: rt leg pain/ numbness Intake Note: pt is here for right leg pain and numbness Patient Tobacco Use Status: Current everyday Tobacco user Allergies No Known Allergies [No Known Allergies*] Allergy (Verified 01/18/24 12:23) Do you need a note to return to daycare/school/sports/work: No HPI HPI Comments History of Present Illness Details 53-year-old female presents today complaining of right-sided calf pain and numbness for the last 4 days. This pain is increasing in intensity. She states she does not have any back pain thigh pain or hip pain. And this pain began while she was sitting so there was no trauma or injury to the area. Denies any cough chest pain fever chills PFSH Medical History (Updated 01/18/24 @ 14:15 by KEILA Adkins) Idiopathic small fiber sensory neuropathy Nicotine dependence, cigarettes, uncomplicated Obesity, Class III, BMI 40-49.9 (morbid obesity) TRAMAINE (obstructive sleep apnea) Degenerative disc disease at L5-S1 level Closed fracture of right distal fibula Diverticulitis Clostridium difficile diarrhea Tinnitus Vitamin D deficiency Postmenopausal Surgical History (Updated 12/03/23 @ 09:38 by Eduarda Knox PA-C) History of hand surgery History of colonoscopy Family History Mother Breast cancer Asthma Arthritis Father No problems noted. Maternal Aunt Colon cancer Brother Schizophrenia Other Mental health disorder Social History (Updated 12/03/23 @ 09:47 by Eduarda Knox PA-C) Household Members: Family Housing: House Are you a primary associate director career services to a significant other at home: No Do you presently have visiting nurse or other home services: No Alcohol intake: current Alcohol intake frequency: a few times a week Alcohol type: beer and wine Comment: once a week 4 drinks Patient Tobacco Use Status: Current everyday Tobacco user Tobacco use type: Cigarette Cigarette Packs Per Day: 0.5 Cigarettes Per Day: 10 Years Smoked: (onset 20yo, 1/2-3/4ppd x 33yrs, 20pyh) e-Cigarette/Vaping Use: Never Used Second Hand Smoke Exposure: Yes service: No Current occupational status: employed 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[employer] 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 Cognitive needs: No Hearing needs: No Vision needs: Yes (glasses) Review of Systems Const All systems reviewed & are unremarkable except as noted in HPI and below Eyes Reports no additional complaints ENT Reports no additional complaints Card Reports no additional complaints Resp Reports no additional complaints GI Reports no additional complaints Musc Reports numbness and Reports stiffness Neuro Reports numbness Physical Exam Vital Signs: Last Vital Signs Temp 97.8 F 01/18/24 12:23 Pulse 94 01/18/24 12:23 BP 146/90 H 01/18/24 12:23 Pulse Ox 97 01/18/24 12:23 Oxygen Delivery Method Room Air 01/18/24 12:23 Const General: healthy appearing and in distress mild Extrem Right lower extremity: normal to inspection and lower leg Details: tenderness Location: of the posterior calf (Positive Homans sign) Results Reviewed Results Reviewed: Ultrasound of the right calf today was negative for DVT. Assessment & Plan Assessment & Plan (1) Right calf pain: Code(s): M79.661 - Pain in right lower leg (2) Strain of right calf muscle: Code(s): S86.811A - Strain of other muscle(s) and tendon(s) at lower leg level, right leg, initial encounter Plan: The patient will do some gentle stretching exercises and limit her ambulation and lifting while at work. She refused a work note I also will give her a muscle relaxer to use only at night follow up with her PCP Plan See plan Orders: Orders US venous duplex LE RT Today M79.661 - Pain in right lower leg Medications: New cyclobenzaprine 5 mg PO Q12H 10 tabs 0RF Coding Level of Care Code Est Pt Level 3 (00875) Diagnoses Right calf pain M79.661 Strain of right calf muscle S86.811A
== END 2024-01-18 13:47 | disposition home or self-care (01) ==
PROVIDERS: PCP Internal Medicine; Visit Provider Physician Assistant Medical
DX: M79.661 Pain in right lower leg (principal); S86.811A Strain of other muscle(s) and tendon(s) at lower leg level, right leg, initial encounter
CPT/HCPCS: 99213

== ENCOUNTER 2024-01-18 13:36 | Outpatient (REF) | payer OTHER, SELFPAY ==
--- NOTE | ~2024-01-18 | US_ITS ---
EXAMINATION: US VENOUS ULTRASOUND WITH DOPPLER LOWER EXTREMITY, RIGHT CLINICAL INFORMATION: Right lower extremity pain COMPARISON: None available. TECHNIQUE: Ultrasound of the deep veins is performed from the hip to the calf with compression sonography and color and pulse Doppler assessment. Spectral analysis with color-flow imaging is performed. FINDINGS: There is normal venous compression and respiratory variation and augmented flow. The visualized common femoral vein, superficial femoral vein, profunda femoral vein, popliteal vein, and the trifurcation region shows no evidence of deep venous thrombosis. There is no significant popliteal fossa cyst. If the patient's symptoms persist, followup ultrasound in 5 days 7 days might be of value to exclude proximal propagation from a non-visualized calf vein. US/US venous duplex LE RT IMPRESSION: No DVT demonstrated in the right lower extremity.
== END 2024-01-18 13:37 | disposition home or self-care (01) ==
LOC: HO.HMGCX 13:36
PROVIDERS: PCP Internal Medicine; Visit Provider Physician Assistant Medical
DX: M79.661 Pain in right lower leg (principal)
CPT/HCPCS: 93971

== ENCOUNTER 2024-05-15 15:29 | Outpatient (AMB) | payer OTHER, SELFPAY ==
[2024-05-15 15:39] VITALS: BMI 40.2
--- NOTE | 2024-05-15 15:39 | A.OFFVIS_ITS ---
Vital Signs 05/15/24 15:39 Height 5 ft 1 in Weight 213 lb BMI 40.2 Intake Visit Reasons: 6 mnts f/u Intake Note: Patient presents for follow up. Allergies No Known Allergies [No Known Allergies*] Allergy (Verified 05/15/24 15:44) Medication List - Last Reconciled 05/15/24 by Lorraine Reyes MD albuterol sulfate 90 mcg/actuation 2 puffs inhalation Q4-6H PRN cholecalciferol (vitamin D3) 25 mcg PO DAILY 30 days cyclobenzaprine 5 mg PO Q12H fexofenadine (Tiffanie Allergy) 60 mg PO Q12H fluticasone propionate 50 mcg/actuation (Flonase Allergy Relief) 2 sprays intra nasal DAILY ibuprofen 600 mg PO Q6H PRN magnesium oxide 400 mg PO BEDTIME 30 days ropinirole 1-4 tab orally bedtime; administer 1-3 hours before bedtime 30 days tolterodine ER (Detrol LA) 2 mg PO DAILY HPI Comments Details: 53 y/o female patient presents for follow up of small fiber neuropathy( diagnosed in [address] Peña -biopsy) and sleep apnea associated with hypoxemia. she also has restless legs leg cramps at night.. she was trialed on ropinirole in the past The PSG sleep study result was significant for a mild degree of sleep apnea with increased severity in REM sleep. The AHI was 12/hr, oxygen samir was 71% with below 88% for 50 min. Supplemental oxygen at 1LPM was used during the sleep study. Pt states that she does not sleep well, restless legs, constantly moving due to leg pain. She snores, wakes up multiple times at night and having non refreshing sleep with daytime tiredness.. Her vitamin D level was low, 15.9 and started vitamin D supplement. She was diagnosed with small fiber neuropathy in 2016, confirmed by skin biopsy. Pt reports constant bilateral feet discomfort, burning, sharp, stabbing pain in her ankles and legs, right leg is worse than left. She had a fall in July, due to the ankle and leg pain. Pt tried gabapentin, topiramate, but she stopped taking it, they did not help for the foot and leg pain. Gabapentin made her very groggy in the morning. She has constant discomfort and pain comes and goes, no relieving factors. She tried massage and Epson salt did not help. Pt also had EMG/NCV done and the result was normal study. No evidence of neuropathy, tibial neuropathy, lumbosacaral plexopathy, lumbar radiculopathy or peripheral neuropathy. Has hx of plantar fasciitis, foot mapping done, She can have right thigh numbness and weakness, when she walks. The numbness comes from her lower back, hip and radiated to her thigh. Also reports lower back pain. Lumbar X ray result was mild spondylosis. Has hx of SI joint pain, and seeing sports medicine, had gel injection done. Hx of knee fx with meniscus tore [facility] Medical History Idiopathic small fiber sensory neuropathy Nicotine dependence, cigarettes, uncomplicated Obesity, Class III, BMI 40-49.9 (morbid obesity) TRAMAINE (obstructive sleep apnea) Degenerative disc disease at L5-S1 level Closed fracture of right distal fibula Diverticulitis Clostridium difficile diarrhea Tinnitus Vitamin D deficiency Postmenopausal Surgical History History of hand surgery History of colonoscopy Family History Mother Breast cancer Asthma Arthritis Father No problems noted. Maternal Aunt Colon cancer Brother Schizophrenia Other Mental health disorder Social History Household Members: Family Housing: House Are you a primary acute care occupational therapist to a significant other at home: No Do you presently have visiting nurse or other home services: No Alcohol intake: current Alcohol intake frequency: a few times a week Alcohol t ype: beer and wine Comment: once a week 4 drinks Patient Tobacco Use Status: Current everyday Tobacco user Tobacco use type: Cigarette Cigarette Packs Per Day: 0.5 Cigarettes Per Day: 10 Years Smoked: (onset 20yo, 1/2-3/4ppd x 33yrs, 20pyh) e-Cigarette/Vaping Use: Never Used Second Hand Smoke Exposure: Yes service: No Current occupational status: employed 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[employer] 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 Cognitive needs: No Hearing needs: No Vision needs: Yes (glasses) Physical Exam Vital Signs: BMI result Body Mass Index 40.2 Const General: cooperative Nutritional Appearance: obese Orientation/consciousness: patient oriented x3 Neck Neck: Yes full ROM and Yes supple Resp Effort & Inspection: normal respiratory effort and able to speak in complete sentences Neuro General: patient oriented x3, gait normal and moves all extremities Cranial nerves: Yes CN's II-XII intact bilaterally Gait exam (Neuro): Normal gait present Motor exam (neuro): 5/5 motor strength present throughout Deep tendon reflexes (DTR's): Right brachioradialis reflex intensity grade: 2+ and Left brachioradialis reflex intensity grade: 2+ Psych Appearance: grossly normal Mental Status: mental status grossly normal Speech and movement: Normal speech and movement present Affect: normal affect Attitude: cooperative Assessment & Plan Assessment & Plan (1) Lower back pain: Code(s): M54.50 - Low back pain, unspecified Category: Medical Qualifiers: Chronicity: chronic Back pain laterality: midline Sciatica presence: without sciatica Qualified Code(s): M54.50 - Low back pain, unspecified; G89.29 - Other chronic pain (2) Numbness of lower extremity: Code(s): R20.0 - Anesthesia of skin Category: Medical (3) Idiopathic small fiber sensory neuropathy: Code(s): G60.8 - Other hereditary and idiopathic neuropathies Category: Medical (4) Neuropathy: Comment: ( idiopathic small fiber neuropathy July 2016 Dr. Peña) Code(s): G62.9 - Polyneuropathy, unspecified Category: Medical (5) TRAMAINE (obstructive sleep apnea): Comment: (Mild TRAMAINE with increased severity in REM sleep and sleep related hypoxemia. AHI = 12 and oxygen samir was 71% with below 88% for 50 min.) Code(s): G47.33 - Obstructive sleep apnea (adult) (pediatric) Category: Medical Plan I will trial her on CPAP at 14 cm of water. MRI LS spine I will trial him on pramipexole ER 0.375mg qhs Orders: Orders TSH reflex Free T4 Today G60.8 - Other hereditary and idiopathic neuropathies Comprehensive Met. Panel Today G60.8 - Other hereditary and idiopathic neuropathies Vitamin B12 and Folate Today G60.8 - Other hereditary and idiopathic neuropathies Complete Blood Count Auto Diff Today G60.8 - Other hereditary and idiopathic neuropathies Vitamin D 25-OH (D2 and D3) Today G60.8 - Other hereditary and idiopathic neuropathies MR lumbar spine wo con Today M47.817 - Spondylosis without myelopathy or radiculopathy, lumbosacral region Medications: New pramipexole ER 0.375 mg PO BEDTIME 30 tabs 0RF Discontinued cyclobenzaprine Discontinued Reason: Patient no longer taking 5 mg PO Q12H 10 tabs 0RF ropinirole Discontinued Reason: Patient no longer taking 1-4 tab orally bedtime; administer 1-3 hours before bedtime 30 days 120 tabs 4RF Coding Level of Care Code Est Pt Level 4 (94978) Diagnoses Chronic midline low back pain without sciatica M54.50; G89.29 Chronicity: chronic Back pain laterality: midline Sciatica presence: without sciatica Numbness of lower extremity R20.0 Idiopathic small fiber sensory neuropathy G60.8 Neuropathy G62.9 TRAMAINE (obstructive sleep apnea) G47.33
== END 2024-05-15 16:09 | disposition home or self-care (01) ==
LOC: HO.HSMS 15:29
PROVIDERS: PCP Internal Medicine; Visit Provider Psychiatry & Neurology Neurology
DX: M54.50 Low back pain, unspecified (principal); G89.29 Other chronic pain; R20.0 Anesthesia of skin; G60.8 Other hereditary and idiopathic neuropathies; G62.9 Polyneuropathy, unspecified; G47.33 Obstructive sleep apnea (adult) (pediatric)
CPT/HCPCS: 99214

== ENCOUNTER → 2024-05-15 15:29 | Outpatient (BNVA) | payer OTHER, SELFPAY | PROVIDERS: PCP Internal Medicine; Visit Provider Psychiatry & Neurology Neurology ==

== ENCOUNTER 2024-05-24 14:30 | Outpatient (REF) | payer OTHER, SELFPAY ==
--- NOTE | ~2024-05-24 | MM_ITS ---
EXAMINATION: MM SCREENING DIGITAL BREAST TOMOSYNTHESIS, BILATERAL CLINICAL INFORMATION: Screening. Asymptomatic. COMPARISON: Mammography: Comparison is made with available priors TECHNIQUE: Digital breast mammography with tomosynthesis is performed in both the craniocaudal and mediolateral oblique views along with computer-aided detection (CAD). FINDINGS: There are scattered areas of fibroglandular density (ACR BI-RADS breast composition Category b). There are no significant masses, abnormal calcifications, or other abnormalities. MM/MM tomosynthesis screening BI IMPRESSION: No mammographic evidence of malignancy. ASSESSMENT: BI-RADS BI-RADS 1 - Negative RECOMMENDATION: Routine annual mammography screening. 1 year F/U This examination should not preclude the clinical evaluation of a suspicious palpable abnormality. This patient's information was entered into a reminder system with a target due date for their next mammogram. Electronically signed by: Angela Inman DO 06/02/2024 08:45 AM [facility]
== END 2024-05-24 14:31 | disposition home or self-care (01) ==
LOC: HO.MAMMO 14:30
PROVIDERS: Visit Provider Internal Medicine
DX: Z12.31 Encounter for screening mammogram for malignant neoplasm of breast (principal)
CPT/HCPCS: 77063; 77067

== ENCOUNTER → 2024-05-24 14:45 | Outpatient (BNV) | payer OTHER, SELFPAY | PROVIDERS: Visit Provider Internal Medicine | DX: Z12.31 Encounter for screening mammogram for malignant neoplasm of breast (principal) | CPT/HCPCS: 77063; 77067 ==

== ENCOUNTER 2024-05-24 15:09 | Outpatient (REF) | payer OTHER, SELFPAY ==
[2024-05-24 16:57] LABS: Alanine Aminotransferase 31 U/L (0-31); Albumin Level 4.4 g/dL (3.5-5.0); Alkaline Phosphatase 133 U/L (39-117); Anion Gap 13 (12-20); Aspartate Amino Transferase 30 U/L (5-31); Bilirubin Total 0.4 mg/dL (0.0-1.0); Blood Urea Nitrogen 10 mg/dL (9-16); Calcium 9.4 mg/dL (8.4-10.2); Carbon Dioxide 27 mmol/L (22-29); Chloride 106 mmol/L (96-108); Estimated Glomerular Filt Rate > 60; Glucose Random 95 mg/dL (60-115); Potassium 3.6 mmol/L (3.3-5.1); Sodium 142 mmol/L (135-145); Total Protein 7.1 g/dL (6.5-8.0)
[2024-05-24 17:16] LABS: TSH reflex Free T4 2.37 uIU/mL (0.32-4.0)
[2024-05-24 17:21] LABS: Folate 5.1 ng/mL (> or = 4.0); Vitamin B12 377 pg/mL (200-900)
[2024-05-29 16:40] LABS: Vitamin D 25-OH, D2 <4 ng/mL; Vitamin D 25-OH, D3 14 ng/mL; Vitamin D 25-OH, Total 14 ng/mL (30-100)
== END 2024-05-24 15:10 | disposition home or self-care (01) ==
LOC: HO.LAB 15:09
PROVIDERS: Psychiatry & Neurology Neurology; PCP Internal Medicine; Visit Provider Internal Medicine Hypertension Specialist
DX: G60.8 Other hereditary and idiopathic neuropathies (principal)
CPT/HCPCS: 36415; 80053; 82306; 82607; 82746; 84443

== ENCOUNTER → 2024-07-24 09:07 | Outpatient (BNV) | payer OTHER, SELFPAY | PROVIDERS: Visit Provider Radiology Diagnostic Radiology | DX: M48.061 Spinal stenosis, lumbar region without neurogenic claudication (principal) | CPT/HCPCS: 72148 ==

== ENCOUNTER 2024-07-24 09:14 | Outpatient (REF) | payer OTHER, SELFPAY ==
--- NOTE | ~2024-07-24 | MR_ITS ---
EXAMINATION: MR LUMBAR SPINE WITHOUT IV CONTRAST History: M47.817 - Spondylosis without myelopathy or radiculopathy, lumbosacral radiculopathy Technique: Sagittal T1, T2 and STIR, and axial T1 and T2 weighted images of the lumbar spine were obtained per departmental protocol. Comparison: Correlation is made to plain films of the lumbar spine dated 10/02/2023. Findings: There is a transitional vertebra at the lumbosacral junction. The lowest intervertebral disc will be labeled S1-2. The vertebral bodies maintain normal height and alignment. There is edema of the left S1 pedicle. The intervertebral discs maintain normal height and hydration. At T12-L1,there is no evidence of disc herniation, central spinal stenosis, or neural foraminal narrowing. At L1-2, there is no evidence of disc herniation, central spinal stenosis, or neural foraminal narrowing. At L2-3, there is no evidence of disc herniation, central spinal stenosis, or neural foraminal narrowing. At L3-4, there is no evidence of disc herniation, central spinal stenosis, or neural foraminal narrowing. At L4-5, there is a moderate disc bulge. There is facet and ligamentum flavum hypertrophy causing mild central spinal stenosis and bilateral neural foraminal narrowing. At L5-S1, there is a mild disc bulge. There is facet and ligamentum flavum hypertrophy causing mild left neural foraminal narrowing. There is no central spinal or right neural foraminal stenosis. The conus terminates at the T12-L1 level and demonstrates normal signal intensity. The visualized paraspinal soft tissues are unremarkable. MR/MR lumbar spine wo con Impression: 1. Transitional vertebra at the lumbosacral junction. Edema of the left S1 pedicle. 2. Mild central spinal stenosis and bilateral neural foraminal narrowing at L4-5 secondary to a moderate disc bulge and facet and ligamentum flavum hypertrophy. 3. Mild left neural foraminal narrowing at L5-S1 secondary to a mild disc bulge and facet and ligamentum flavum hypertrophy. Electronically signed by: Jero Sumner MD 07/25/2024 02:39 PM [facility]
== END 2024-07-24 09:15 | disposition home or self-care (01) ==
LOC: HO.MRI 09:14
PROVIDERS: Visit Provider Psychiatry & Neurology Neurology
DX: M47.817 Spondylosis without myelopathy or radiculopathy, lumbosacral region (principal)
CPT/HCPCS: 72148

== ENCOUNTER 2024-08-14 14:55 | Outpatient (AMB) | payer OTHER, SELFPAY ==
[2024-08-14 15:19] VITALS: BP 130/58; PULSE 91; O2SAT 94; BMI 41.4
--- NOTE | 2024-08-14 15:19 | MHC.OFFVIS ---
Vital Signs 08/14/24 15:19 Height 5 ft 1 in Weight 219 lb BMI 41.4 BP 130/58 L Blood Pressure Location Lt brachial Position Sitting Pulse 91 Pulse Source Pulse Oximeter Pulse Oximetry (%) 94 Oxygen Delivery Method Room Air Intake Visit Reasons: 3 mo f/u Crack Off Person Required: No Allergies No Known Allergies [No Known Allergies*] Allergy (Verified 08/14/24 15:21) Do you need a note to return to daycare/school/sports/work: No HPI Comments Details: 53 y/o female patient presents for follow up of small fiber neuropathy( diagnosed in [address] Peña -biopsy) and sleep apnea associated with hypoxemia. She also has restless legs leg cramps at night. she was trialed on Ropinirole, Gabapenin and Topiramate as all were ineffective. The PSG sleep study result was significant for a mild degree of sleep apnea with increased severity in REM sleep. The AHI was 12/hr, oxygen samir was 74% Supplemental oxygen at 1LPM was used during the sleep study. The titration study completed December 2023, O2 stabilized on [id number] TRAMAINE: Compliance on her phone wanda: 07/05/2024 to 08/13/2024 Pressures are [id number] and leaks avg. 27 total hours average use was 5 hours and 45 min, AHI is 2/hr She changes her filters, cleans the mask and tubing as needed. Pt states that she does not sleep well, restless legs, constantly moving due to leg pain. She no longer snores but is still very tired, despite sleep improving. Her vitamin D level was low, 15.9 and started vitamin D supplement. She was diagnosed with small fiber neuropathy in 2015, confirmed by skin biopsy. Pt reports constant bilateral feet discomfort, burning, sharp, stabbing pain in her ankles and legs, right leg is worse than left. She had a fall in July, due to the ankle and leg pain. She has constant discomfort and pain comes and goes, no relieving factors. She tried massage and Epsom salt did not help. She can have right thigh numbness and weakness, when she walks. The numbness comes from her lower back, hip and radiates to her thigh. Also reports lower back pain. Lumbar X ray result: mild spondylosis. Has hx of SI joint pain, and was seeing sports medicine, had gel injection done which provided some relief. Mood is anxious, she cries as she speaks about her weight, refuses weight management today. 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 [facility] Medical History Idiopathic small fiber sensory neuropathy Nicotine dependence, cigarettes, uncomplicated Obesity, Class III, BMI 40-49.9 (morbid obesity) TRAMAINE (obstructive sleep apnea) Degenerative disc disease at L5-S1 level Closed fracture of right distal fibula Diverticulitis Clostridium difficile diarrhea Tinnitus Vitamin D deficiency Postmenopausal Surgical History History of hand surgery History of colonoscopy Family History Mother Breast cancer Asthma Arthritis Father No problems noted. Maternal Aunt Colon cancer Brother Schizophrenia Other Mental health disorder Social History Household Members: Family Housing: House Are you a primary manager medicare marketing to a significant other at home: No Do you presently have visiting nurse or other home services: No Alcohol intake: current Alcohol intake frequency: a few times a week Alcohol type: beer and wine Comment: once a week 4 drinks Patient Tobacco Use Status: Current everyday Tobacco user Tobacco use type: Cigarette Cigarette Packs Per Day: 0.5 Cigarettes Per Day: 10 Years Smoked: (onset 20yo, 1/2-3/4ppd x 33yrs, 20pyh) e-Cigarette/Vaping Use: Never Used Second Hand Smoke Exposure: Yes service: No Current occupational status: employed 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 [email or web address] 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 Cognitive needs: No Hearing needs: No Vision needs: Yes (glasses) Review of Systems Const All systems reviewed & are unremarkable except as noted in HPI and below Physical Exam Vital Signs: Last Vital Signs Pulse 91 08/14/24 15:19 BP 130/58 L 08/14/24 15:19 Pulse Ox 94 08/14/24 15:19 Oxygen Delivery Method Room Air 08/14/24 15:19 BMI result Body Mass Index 41.4 Const General: cooperative and tired appearing Nutritional Appearance: obese Orientation/consciousness: patient oriented x3 HEENT Face and sinus: Yes normal facial exam and Yes face symmetric Eyes Pupils: Equal, round and reactive pupils present Neck Neck: Yes supple and Yes other (Limited ROM on Flexion/ EXT Rotation to the L/R) Resp Effort & Inspection: normal respiratory effort and able to speak in complete sentences Neuro General: patient oriented x3, gait normal and moves all extremities Cranial nerves: Yes CN's II-XII intact bilaterally and Yes Equal, round and reactive pupils present Gait exam (Neuro): Normal gait present Motor exam (neuro): 5/5 motor strength present throughout Deep tendon reflexes (DTR's): Right triceps reflex intensity grade: 2+, Left triceps reflex intensity grade: 2+, Rt Biceps (C5, C6): 2+, Left biceps reflex intensity grade: 2+, Right brachioradialis reflex intensity grade: 2+, Left brachioradialis reflex intensity grade: 2+, Right patellar reflex intensity grade: 3+ and Left patellar reflex intensity grade: 3+ Psych Appearance: grossly normal Affect: normal affect Attitude: cooperative Thought process: Normal thought process present Thought content: Normal thought content present Results Reviewed Results Reviewed: US/US arterial duplex [facility] 05/04/23 IMPRESSION: No definite evidence of hemodynamically significant arterial disease of the left lower extremity. XR HIP, RIGHT 12/31/22 CLINICAL INFORMATION: Right hip pain. COMPARISON: 11/27/2020 FINDINGS: AP film of the pelvis demonstrates partial sacralization of L5 with transverse processes causing pseudoarticulation with the right iliac crest and questionably about the left iliac crest. There is some sclerosis seen involving the superior aspect of the left sacroiliac joint. Hip joint spaces appear maintained with some superior marginal spurring identified. Calcific trochanteric cyst seen on the left. Two views of the right hip do not demonstrate any evidence of acute fracture or dislocation. Hip joint space is maintained. Mild superior acetabular spurring is seen. No abnormal lytic or sclerotic lesions are identified. No evidence of femoral head collapse. 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 XR ankle RT min 3V on 11/17/22 IMPRESSION: Healing distal fibular shaft fracture. CT/CT abdomen pelvis wo con on 05/19/21- diverticulitis OSSEOUS STRUCTURES: No acute or aggressive osseous abnormalities. Multilevel thoracolumbar spondylosis with prominent anterior osteophytes at L3-L4 and L4-L5. Jul 24 2024 MR/MR lumbar spine wo con Impression: 1. Transitional vertebra at the lumbosacral junction. Edema of the left S1 pedicle. 2. Mild central spinal stenosis and bilateral neural foraminal narrowing at L4-5 secondary to a moderate disc bulge and facet and ligamentum flavum hypertrophy. 3. Mild left neural foraminal narrowing at L5-S1 secondary to a mild disc bulge and facet and ligamentum flavum hypertrophy. Assessment & Plan Assessment & Plan (1) Lower back pain: Code(s): M54.50 - Low back pain, unspecified Category: Medical Qualifiers: Back pain laterality: midline Chronicity: chronic Sciatica presence: without sciatica Qualified Code(s): M54.50 - Low back pain, unspecified; G89.29 - Other chronic pain (2) Numbness of lower extremity: Code(s): R20.0 - Anesthesia of skin Category: Medical (3) Idiopathic small fiber sensory neuropathy: Code(s): G60.8 - Other hereditary and idiopathic neuropathies Category: Medical (4) Neuropathy: Comment: ( idiopathic small fiber neuropathy July 2016 Dr. Peña) Code(s): G62.9 - Polyneuropathy, unspecified Category: Medical (5) TRAMAINE (obstructive sleep apnea): Comment: (Mild TRAMAINE with increased severity in REM sleep and sleep related hypoxemia. AHI = 12 and oxygen samir was 71% with below 88% for 50 min.) Code(s): G47.33 - Obstructive sleep apnea (adult) (pediatric) Category: Medical (6) Low vitamin D level: Code(s): R79.89 - Other specified abnormal findings of blood chemistry Category: Medical (7) Cervicalgia of ovjxslle-fftlmrg-lcmpi region: Code(s): M54.2 - Cervicalgia Category: Medical (8) Obesity, Class III, BMI 40-49.9 (morbid obesity): Code(s): E66.01 - Morbid (severe) obesity due to excess calories Category: Medical (9) Daytime sleepiness: Code(s): R40.0 - Somnolence Category: Medical Plan TRAMAINE continue using CPAP daily as patient has improvement in sleep. MRI LS spine - Reviewed MRI Jul 2024 imaging with Patient Vitamin D - Low levels: 62.5mcg PO daily. Fatigue: Magnesium 400mg PO at bedtime daily Cervicalgia: Flexiril 5mg PO at night for tight neck muscles Neuropathy: Pramipexole ER 0.375mg qhs - Not effective after 45 days, patient refused medications B6 Melatonin with Pyridoxal phos 2.5mg - 338mcg, take one tablet sublingualy at Bedtime Lumboscacral Spondylosis: Physical Therapy core Strength and mobility training. Past Trials: Gabapentin and Topiramate not effective 6month f/u for TRAMAINE Orders: Orders PT Evaluation and Treatment Today G89.29 - Other chronic pain, M54.50 - Low back pain, unspecified Medications: New magnesium oxide 400 mg PO DAILY 30 tabs 3RF leg pain G47.33 - Obstructive sleep apnea (adult) (pediatric) cyclobenzaprine 5 mg PO BEDTIME 30 tabs 1RF cervicaglia MDD 10mg M54.2 - Cervicalgia cholecalciferol (vitamin D3) 62.5 mcg PO DAILY 30 caps 3RF vit D deficiency R79.89 - Other specified abnormal findings of blood chemistry melatonin-pyridoxal phos (B6) 2.5 mg- 338 mcg 1 tab sublingual BEDTIME 30 tabs 3RF Nerve pain MDD 1 tablet G47.33 - Obstructive sleep apnea (adult) (pediatric), G60.8 - Other hereditary and idiopathic neuropathies Coding Level of Care Code Est Pt Level 4 (21386) Diagnoses Chronic midline low back pain without sciatica M54.50; G89.29 Back pain laterality: midline Chronicity: chronic Sciatica presence: without sciatica Numbness of lower extremity R20.0 Idiopathic small fiber sensory neuropathy G60.8 Neuropathy G62.9 TRAMAINE (obstructive sleep apnea) G47.33 Low vitamin D level R79.89 Cervicalgia of sfawsoss-opeifhx-ivkfa region M54.2 Obesity, Class III, BMI 40-49.9 (morbid obesity) E66.01 Daytime sleepiness R40.0 Time Spent (min) 45 Comment Worsening Pain
== END 2024-08-14 16:19 | disposition home or self-care (01) ==
PROVIDERS: PCP Internal Medicine; Visit Provider Physician Assistant Medical
DX: M54.50 Low back pain, unspecified (principal); G89.29 Other chronic pain; R20.0 Anesthesia of skin; G60.8 Other hereditary and idiopathic neuropathies; G62.9 Polyneuropathy, unspecified; G47.33 Obstructive sleep apnea (adult) (pediatric); R79.89 Other specified abnormal findings of blood chemistry; M54.2 Cervicalgia; E66.01 Morbid (severe) obesity due to excess calories; R40.0 Somnolence
CPT/HCPCS: 99214

== ENCOUNTER 2024-08-23 12:34 | Outpatient (REF) | payer OTHER, SELFPAY ==
[2024-08-24 13:32] LABS: Bacterial Vaginosis PCR NEGATIVE (Negative); Candida Group PCR NOT DETECTED (Not Detect); Candida glab krusei PCR NOT DETECTED (Not Detect); Trichomonas vaginalis PCR NOT DETECTED (Not Detect)
[2024-08-24 15:18] LABS: CT PCR NOT DETECTED (Not Detect.); NG PCR NOT DETECTED (Not Detect.)
[2024-08-30 14:41] LABS: HPV Genotype 16 Negative (Negative); HPV Genotype 18 Negative (Negative); HPV High Risk Negative (Negative)
== END 2024-08-23 12:35 | disposition home or self-care (01) ==
LOC: HO.LNP 12:34
PROVIDERS: PCP Internal Medicine; Visit Provider Internal Medicine
DX: Z00.00 Encounter for general adult medical examination without abnormal findings (principal); Z12.4 Encounter for screening for malignant neoplasm of cervix; Z11.51 Encounter for screening for human papillomavirus (HPV); R73.01 Impaired fasting glucose; E78.00 Pure hypercholesterolemia, unspecified; G60.8 Other hereditary and idiopathic neuropathies; G47.33 Obstructive sleep apnea (adult) (pediatric); E66.01 Morbid (severe) obesity due to excess calories; F17.210 Nicotine dependence, cigarettes, uncomplicated; M47.817 Spondylosis without myelopathy or radiculopathy, lumbosacral region; F41.1 Generalized anxiety disorder; Z20.2 Contact with and (suspected) exposure to infections with a predominantly sexual mode of transmission
CPT/HCPCS: 81515; 87491; 87591; 87626; 88175; 96127

== ENCOUNTER 2024-08-23 12:34 | Outpatient (AMB) | payer OTHER, SELFPAY ==
--- NOTE | 2024-08-23 12:43 | A.OFFPC_ITS ---
Vital Signs 08/23/24 12:44 Height 5 ft 1 in Weight 217 lb BMI 41.0 BP 132/70 Blood Pressure Location Lt brachial Position Sitting Pulse 85 Pulse Source Pulse Oximeter Pulse Oximetry (%) 96 Oxygen Delivery Method Room Air Intake Visit Reasons: Annual Exam Allergies No Known Allergies [No Known Allergies*] Allergy (Verified 08/23/24 12:44) Medication List - Last Reconciled 08/23/24 by Aldo Liang MD albuterol sulfate 90 mcg/actuation 2 puffs inhalation Q4-6H PRN cholecalciferol (vitamin D3) 62.5 mcg PO DAILY cyclobenzaprine 5 mg PO BEDTIME MDD 10mg fexofenadine (Tiffanie Allergy) 60 mg PO Q12H ibuprofen 600 mg PO Q6H PRN magnesium oxide 400 mg PO DAILY melatonin-pyridoxal phos (B6) 2.5 mg- 338 mcg 1 tab sublingual BEDTIME MDD 1 tablet Tobacco use date assessed: 08/23/24 Dental Screening Dental Screen Date: 08/23/24 Did you have a dental visit in the last 12 months?: Yes Did you have a dental problem in the last 6 months where you did not have access to dental care?: No Was dental information given to patient?: Patient has dentist HPI Annual Exam HPI Details 54-year-old morbidly obese female with B OH of 41 having peripheral neuropathy 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 Patient is here for physical exam patient has just recently seen Neurology and had her requested for sleep apnea study. As for the medications that was prescribed patient states did not help [facility] Medical History Idiopathic small fiber sensory neuropathy Nicotine dependence, cigarettes, uncomplicated Obesity, Class III, BMI 40-49.9 (morbid obesity) TRAMAINE (obstructive sleep apnea) Degenerative disc disease at L5-S1 level Closed fracture of right distal fibula Diverticulitis Clostridium difficile diarrhea Tinnitus Vitamin D deficiency Postmenopausal Surgical History History of hand surgery History of colonoscopy Family History Mother Breast cancer Asthma Arthritis Father No problems noted. Maternal Aunt Colon cancer Brother Schizophrenia Other Mental health disorder Social History (Updated 08/23/24 @ 13:05 by Aldo Liang MD) Household Members: Family Housing: House Are you a primary career information specialist to a significant other at home: No Do you presently have visiting nurse or other home services: No Alcohol intake: current Alcohol intake frequency: a few times a week Alcohol type: beer and wine Comment: once a week 4 drinks Patient Tobacco Use Status: Current everyday Tobacco user Tobacco use type: Cigarette Cigarette Packs Per Day: 0.5 Cigarettes Per Day: 10 Years Smoked: (onset 20yo, 1/2-3/4ppd x 33yrs, 20pyh), e-Cigarette/Vaping Use: Never Used Second Hand Smoke Exposure: Yes service: No Current occupational status: employed 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 1. Little interest or pleasure in doing things: not at all 2. Feeling down, depressed, or hopeless: not at all 3. Trouble falling or staying asleep, or sleeping too much: more than half the days 4. Feeling tired or having little energy: several days 5. Poor appetite or overeating: not at all 6. Feeling bad about yourself - or that you are a failure or have let yourself or your family down: not at all 7. Trouble concentrating on things, such as reading the newspaper or watching television: not at all 8. Moving or speaking so slowly that other people could have noticed. Or the opposite - being so fidgety or restless that you have been moving around a lot more than usual: not at all 9. Thoughts that you would be better off or of hurting yourself in some way: not at all Total score: 3 Depression Screening Interpretation: Positive Depression Screening Done: Yes 74030 - PHQ-9 Billing: Yes Source: Developed by Drs. Jero Tan, Renae Bedoya, Salvatore Chavis and colleagues, with an educational kassidy from [employer]. Thrive Questionnaire Date Thrive assessed: 08/23/24 I am a: Patient What is your living situation today?: I have a steady place to live Within the past 12 months, did the food you bought not last and you didn't have the money to get more?: Never true Within the past 12 months, did you worry whether your food would run out before you got money to buy more?: Never true Do you have trouble paying for medicines?: No Do you have trouble getting transportation to medical appointments?: No Do you have trouble paying your heating and electricity bill?: No Do you have trouble taking care of your child, family member or friend?: No Do you have trouble with day-to-day activities such as bathing, preparing meals, shopping, managing finances, etc.?: No Are you currently unemployed and looking for a job?: No Are you interested in more education?: No Please select the resources that you would like help with: None Currently or been in a relationship where the following occur: No concerns reported THRIVE Score: 0 AUDIT C Alcohol Use Questionnaire (AUDIT-C) 1. How often do you have a drink containing alcohol?: 2-4 times a month 2. How many drinks containing alcohol do you have on a typical day when you are drinking?: 3 or 4 3. How often do you have six or more drinks on one occasion?: Less than monthly Total Score: 4 ELISEO-7 AMB Questionnaire ELISEO-7 Date ELISEO - 7 assessed: 08/23/24 Feeling nervous, anxious, or on edge: 0 = Not at all Not being able to stop or control worryin = Not at all Worrying too much about different things: 0 = Not at all Trouble relaxin = Not at all Being so restless that it is hard to sit still: 0 = Not at all Becoming easily annoyed or irritable: 1 = Several days Feeling afraid as if something awful might happen: 0 = Not at all Total ELISEO-7 score (0-4 normal; 5-9 mild; 10-14 moderate; 15-21 severe): 1 Source: Developed by Drs. Jero Tan, Renae Bedoya, Salvatore Chavis and colleagues, with an educational kassidy from [employer]. Review of Systems Const Denies poor appetite and Denies weakness Eyes Denies no additional complaints ENT Reports Normal hearing present, Denies dizziness, Denies nasal congestion, Denies tinnitus and Denies sore throat Card Denies chest pain, Denies syncope, Denies rapid heart rate and Denies dyspnea Resp Denies cough and Denies dyspnea GI Denies change in stool character, Reports constipation, Denies diarrhea, Denies nausea and Denies vomiting Denies urinary frequency, Denies difficulty voiding and Denies dysuria Neuro Reports Normal hearing present, Denies confusion, Denies dizziness, Denies syncope and Denies weakness Psych Denies confusion Physical exam (Primary Care) Vital Signs: Last Vital Signs Pulse 85 08/23/24 12:44 BP 132/70 08/23/24 12:44 Pulse Ox 96 08/23/24 12:44 Oxygen Delivery Method Room Air 08/23/24 12:44 BMI result Body Mass Index 41.0 Tobacco/Smoking Status: Tobacco use Status Tobacco use date assessed 08/23/24 08/23/24 12:45 Patient Tobacco Use Status Current everyday Tobacco 08/23/24 13:05 Tobacco use type Cigarette 08/23/24 13:05 e-Cigarette/Vaping Use Never Used 08/23/24 13:05 PHQ-9: PHQ-9 Score PHQ-9: Total score 3 08/23/24 12:58 Depression Screening Interpretation: Positive Thrive Assessment: Date of Thrive Assessment Date Thrive assessed 08/23/24 08/23/24 12:45 Currently or been in a relationship where the following occur: No concerns reported Const General: No confusion Orientation/consciousness: No confusion HENMT Head: Yes normocephalic Ears: external ears normal and TM's normal bilaterally Face and sinus: Yes normal facial exam Mouth: moist mucous membranes Throat: Yes tonsils normal Eyes Conjunctivae: conjunctivae normal Pupils: Equal, round and reactive pupils present and Pupil accommodation reflex normal Direct Ophthalmoscopy: normal light reflex Neck Neck: No lymphadenopathy Thyroid: Thyroid normal Chest Chest palpation & inspection: normal inspection of the chest Resp Effort & Inspection: normal respiratory effort and no audible wheezes Auscultation: clear to auscultation bilaterally, no crackles, no wheezes and lung sounds not diminished Cardio Rate: regular rate Rhythm: regular rhythm Peripheral pulses: radial pulses present and dorsalis pedis present GI Palpation (GI): no masses Auscultation: normal bowel sounds and normoactive bowel sounds Rectal Exam - Female: deferred External Female Exam: normal external appearance Speculum Exam - Vagina: normal appearance of the vagina Speculum Exam - Cervix: normal appearance of the cervix Bimanual exam- vagina & uterus: normal bimanual exam Bimanual Exam- Adnexa, other: normal adnexae Skin General skin exam: no rashes or lesions noted Rashes: no rashes Neuro General: No confusion Cranial nerves: Yes Equal, round and reactive pupils present and Yes Normal hearing present Cognition (Neuro): normal cognition Gait exam (Neuro): Normal gait present Motor exam (neuro): 5/5 motor strength present throughout Deep tendon reflexes (DTR's): Right brachioradialis reflex intensity grade: 2+, Left brachioradialis reflex intensity grade: 2+, Right patellar reflex intensity grade: 2+ and Left patellar reflex intensity grade: 2+ Extrem General: No edema Coding Level of Care Code Est Pt Prev Care 40-64y(51199) Diagnoses Annual physical exam Z00.00 Idiopathic small fiber sensory neuropathy G60.8 TRAMAINE (obstructive sleep apnea) G47.33 Obesity, Class III, BMI 40-49.9 (morbid obesity) E66.01 Impaired fasting blood sugar R73.01 Nicotine dependence, cigarettes, uncomplicated F17.210 Spondylosis of lumbosacral region, unspecified spinal osteoarthritis complication status M47.817 Spinal osteoarthritis complication: unspecified spinal osteoarthritis Generalized anxiety disorder F41.1 Cervical cancer screening Z12.4 Additional Codes PHQ-9 - 80337 - PHQ-9 Billing: Yes ([id number]) Assessment & Plan Assessment & Plan (1) Annual physical exam: Code(s): Z00.00 - Encounter for general adult medical examination without abnormal findings Category: Medical Plan: Patient is advised to eat healthy, keep well hydrated, keep active and have adequate sleep. (2) Idiopathic small fiber sensory neuropathy: Code(s): G60.8 - Other hereditary and idiopathic neuropathies Category: Medical Plan: Patient has been seeing Neurology and has been placed on pramipexole and magnesium (3) TRAMAINE (obstructive sleep apnea): Comment: (Mild TRAMAINE with increased severity in REM sleep and sleep related hypoxemia. AHI = 12 and oxygen samir was 71% with below 88% for 50 min.) Code(s): G47.33 - Obstructive sleep apnea (adult) (pediatric) Category: Medical Plan: Continue to use the CPAP more than 4 hours a night and benefits from this. (4) Obesity, Class III, BMI 40-49.9 (morbid obesity): Code(s): E66.01 - Morbid (severe) obesity due to excess calories Category: Medical Plan: Diet and exercise (5) Impaired fasting blood sugar: Code(s): R73.01 - Impaired fasting glucose Category: Medical Plan: Decrease the amount of carbohydrate intake, pasta, bread, rice and potatoes are all sugar and that is aside from all the sweet stuff, remember that fruits are good but they are Sweet also. (6) Nicotine dependence, cigarettes, uncomplicated: Comment: T s(current smoker - onset 20yo, 1/2-3/4ppd x 33yrs - 20pyh) CT scan 12/30/2023 Code(s): F17.210 - Nicotine dependence, cigarettes, uncomplicated Category: Medical Plan: Patient is enrolled in the lung cancer screening program (7) Lumbosacral spondylosis: Code(s): M47.817 - Spondylosis without myelopathy or radiculopathy, lumbosacral region Category: Medical Qualifiers: Spinal osteoarthritis complication: unspecified spinal osteoarthritis Qualified Code(s): M47.817 - Spondylosis without myelopathy or radiculopathy, lumbosacral region Plan: Keep active and try to best lose weight. (8) Generalized anxiety disorder: Code(s): F41.1 - Generalized anxiety disorder Category: Medical Plan: Continue with present medication (9) Cervical cancer screening: Code(s): Z12.4 - Encounter for screening for malignant neoplasm of cervix Category: Medical Plan: Pap smear done Orders: Orders Comprehensive Met. Panel 5 Months R73.01 - Impaired fasting glucose Free T4 (Free Thyroxine) 5 Months R73.01 - Impaired fasting glucose Thyroid Stimulating Hormone 5 Months R73.01 - Impaired fasting glucose Vitamin B12 and Folate 5 Months R73.01 - Impaired fasting glucose Hemoglobin A1c 5 Months R73.01 - Impaired fasting glucose Vitamin D 25-OH Total 5 Months R73.01 - Impaired fasting glucose Bacterial Vaginosis Panel Today Z12.4 - Encounter for screening for malignant neoplasm of cervix Complete Blood Count Auto Diff 5 Months R73.01 - Impaired fasting glucose Lipid Panel 5 Months E78.00 - Pure hypercholesterolemia, unspecified, R73.01 - Impaired fasting glucose Pap Smear Today Z12.4 - Encounter for screening for malignant neoplasm of cervix HPV High risk Today Z12.4 - Encounter for screening for malignant neoplasm of cervix CT NG by PCR Today Z12.4 - Encounter for screening for malignant neoplasm of cervix Medications: New bupropion HCl SR (Wellbutrin SR) 150 mg PO BID 60 tabs 2RF F17.210 - Nicotine dependence, cigarettes, uncomplicated, F41.1 - Generalized anxiety disorder
[2024-08-23 12:44] VITALS: BP 132/70; PULSE 85; O2SAT 96; BMI 41.0
--- OUTSIDE RECORDS SUMMARY | 2024-08-23 14:01 | XMS_ITS | Patient Health Record ---
Author Organization [facility] [place] Address [address] [place] [address] Care Team Providers Care Hotbed Transfer Operator Name Role Phone Aldo Liang Primary Care Provider Vidal Mckeon Unavailable [phone] Allergies No Known Allergies Reason For Referral No Information Medications Medication SIG (Take, Route, Fr equency, Duration) Notes Start Date End Date Status Advil Active Vitamin B 12 Active Topiramate 100 MG 1 tablet Orally Twice a day 10/11 Not-Taking Immunizations Vaccine Route Administration Date Status Comme nts COVID-19 Pfizer BioNTech Vaccine Unknown 07/30/2020 Adm inistered 07/09/2021 Social History Tobacco Use: Social History Observation Description Date Details (start date - stop date) Current Smoker NA - NA Tobacco Use/Smoking Question Answer Notes Are you a: current smoker Additional Findings: Tobacco User Moderate cigar ette smoker (10-19 cigs/day) Alcohol Screen Question Answer Notes Did you have a drink containing alcohol in the p ast year? Yes Points 0 Interpretation Negative Tobacco use other than smoking: Question Answer Notes Are you an other tobacco user? No Plan Of Treatment Pending Test Test Name Order Date X ray : Foot, left 3V 07/23/2022 [id number], [id number]/[id number], JOINT/BURSA 0 07/23/2022 Insurance Providers Payer Name Payer Address Payer Phone Subscriber Number Group Number Insured Name Patient Relationship to Insured Coverage Start Date Coverage End Date [facility] [address] [facility] [place] [address] [id number] Grecia Tyleraret Self - patient is the insured Medical (General) History Medical History History ICD Code Broken bones Numbness Chicken pox Surgical History Surgery Date(Month/Year) left and right wrist surgery unknown Hospital[place] History Reason Date([place] [facility] [place] care - fell R fibia f racture xrays taken casted/boot saw PCP 08/06/22 07/31/22
== END 2024-08-23 14:07 | disposition home or self-care (01) ==
PROVIDERS: PCP Internal Medicine; Visit Provider Internal Medicine
DX: Z00.00 Encounter for general adult medical examination without abnormal findings (principal); E66.01 Morbid (severe) obesity due to excess calories; Z68.41 Body mass index [BMI] 40.0-44.9, adult; G60.8 Other hereditary and idiopathic neuropathies; G47.33 Obstructive sleep apnea (adult) (pediatric); R73.01 Impaired fasting glucose; F17.210 Nicotine dependence, cigarettes, uncomplicated; M47.817 Spondylosis without myelopathy or radiculopathy, lumbosacral region; F41.1 Generalized anxiety disorder

== ENCOUNTER 2024-09-08 08:02 | Outpatient (AMB) | payer OTHER, SELFPAY ==
--- OUTSIDE RECORDS SUMMARY | 2024-09-08 08:07 | XMS_ITS | Patient Health Record ---
Author Organization [facility] [place] Address [address] [place] [address] Care Team Providers Care Water Mechanic Name Role Phone Aldo Liang Primary Care Provider Vidal Mckeon Unavailable [phone] Allergies No Known Allergies Reason For Referral [...] X ray : Foot, left 3V 07/23/2022 [id number], [id number]/[id number], JOINT/BURSA 0 07/23/2022 Insurance Providers Payer Name Payer Address Payer Phone Subscriber Number Group Number Insured Name Patient Relationship to Insured Coverage Start Date Coverage End Date [facility] [address] [facility] [place] [address] [phone] [id number] Grecia Tyleraret Self - patient is the insured Medical (General) History Medical History History ICD Code Broken bones Numbness Chicken pox Surgical History Surgery Date(Month/Year) left and right wrist surgery unknown Hospitalization History Reason Date(Month/Year) [facility] [place] Urgent care - fell R fibia f racture xrays taken casted/boot saw PCP 08/06/22 07/31/22
[2024-09-08 08:12] VITALS: BP 124/80; PULSE 78; TEMP 36.9; O2SAT 94
--- NOTE | 2024-09-08 08:12 | AM.OFFWIN_ITS ---
Intake Vital Signs 09/08/24 08:12 Weight 217 lb BP 124/80 Blood Pressure Location Lt brachial Position Sitting Pulse 78 Pulse Source Pulse Oximeter Temp 98.4 F Temp Source Oral Pulse Oximetry (%) 94 Oxygen Delivery Method Room Air Intake Visit Reasons: EP Sinus/respiratory infection? Intake Note: Patient here for sinus pressure, headaches, fever face congestion that started wednesday. Patient Tobacco Use Status: Current everyday Tobacco user Allergies No Known Allergies [No Known Allergies*] Allergy (Verified 09/08/24 08:16) Do you need a note to return to daycare/school/sports/work: No HPI HPI Comments History of Present Illness Details This is a 54-year-old female with past medical history significant for mild intermittent asthma who presented to the walk-in clinic with concerns for sinus/respiratory infection. Patient states she has had significant nasal congestion and rhinorrhea with green yellow nasal discharge x2 days. She also has a productive cough with green-yellow sputum. Patient is also reporting sinus pain/pressure and sinus headache. She also reports bilateral otalgia. She has also had fevers with T-max of 101? F. She has been taking [id number] NyQuil/DayQuil without significant relief. [facility] Medical History Idiopathic small fiber sensory neuropathy Nicotine dependence, cigarettes, uncomplicated Obesity, Class III, BMI 40-49.9 (morbid obesity) TRAMAINE (obstructive sleep apnea) Degenerative disc disease at L5-S1 level Closed fracture of right distal fibula Diverticulitis Clostridium difficile diarrhea Tinnitus Vitamin D deficiency Postmenopausal Surgical History History of hand surgery History of colonoscopy Family History Mother Breast cancer Asthma Arthritis Father No problems noted. Maternal Aunt Colon cancer Brother Schizophrenia Other Mental health disorder Social History (Updated 08/23/24 @ 13:05 by Aldo Liang MD) Household Members: Family Housing: House Are you a primary healthcare network pricing consultant to a significant other at home: No Do you presently have visiting nurse or other home services: No Alcohol intake: current Alcohol intake frequency: a few times a week Alcohol type: beer and wine Comment: once a week 4 drinks Patient Tobacco Use Status: Current everyday Tobacco user Tobacco use type: Cigarette Cigarette Packs Per Day: 0.5 Cigarettes Per Day: 10 Years Smoked: (onset 20yo, 1/2-3/4ppd x 33yrs, 20pyh), e-Cigarette/Vaping Use: Never Used Second Hand Smoke Exposure: Yes service: No Current occupational status: employed 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 Cognitive needs: No Hearing needs: No Vision needs: Yes (glasses) Review of Systems Const All systems reviewed & are unremarkable except as noted in HPI and below Reports no additional complaints Eyes Reports no additional complaints ENT Reports no additional complaints Card Reports no additional complaints Resp Reports no additional complaints GI Reports no additional complaints Reports no additional complaints Musc Reports no additional complaints Skin/Breast Reports system reviewed and no additional complaints, except as documented Neuro Reports no additional complaints Psych Reports no additional complaints Endo Reports no additional complaints Ed/Lymph Reports no additional complaints Aller/Immun Reports no additional complaints Physical Exam Vital Signs: Last Vital Signs Temp 98.4 F 09/08/24 08:12 Pulse 78 09/08/24 08:12 BP 124/80 09/08/24 08:12 Pulse Ox 94 09/08/24 08:12 Oxygen Delivery Method Room Air 09/08/24 08:12 Const Other: Vital signs reviewed. Constitutional: Non-toxic appearing. No acute distress. Well-developed and well-nourished. HEENT: Normocephalic and atraumatic. PERRL/EOMI. There is mild erythema bilateral tympanic membranes without bulging. Her external auditory canals are clear without edema, erythema, or drainage. Mild posterior pharyngeal erythema without exudates or edema. + Maxillary sinus tenderness to palpation. Skin: Warm and dry. No rashes or lesions noted. Neck: Full and painless range of motion. No cervical lymphadenopathy. Cardio: Regular rate and rhythm. No murmurs, gallops, or rubs. No lower extremity edema. No JVD. Pulmonary: No respiratory distress. No accessory muscle usage. She has scattered wheezing without crackles or rhonchi. Gastrointestinal: Soft, nontender, and nondistended in all 4 quadrants. Musculoskeletal: Normal range of motion in joints throughout the body. No deformity or other signs of injury. Neuro: Alert and oriented x4. Cranial nerves 2-12 grossly intact. No focal deficits appreciated. Psych: Normal mood and affect. Assessment & Plan Assessment & Plan (1) Acute bronchitis: Code(s): J20.9 - Acute bronchitis, unspecified Qualifiers: Bronchitis organism: unspecified organism Qualified Code(s): J20.9 - Acute bronchitis, unspecified (2) Acute rhinosinusitis: Code(s): J01.90 - Acute sinusitis, unspecified Plan This is a 54-year-old female who presented to the walk-in clinic with concerns for respiratory/sinus infection. She has had symptoms including nasal congestion/rhinorrhea with green yellow nasal discharge, sinus pain/pressure, fevers with T-max 101? F, and productive cough with green-yellow sputum. On physical examination, her tympanic membranes are erythematous bilaterally, she has maxillary sinus tenderness to palpation, and she has scattered expiratory wheezing. History and physical most consistent with acute rhinosinusitis as well as acute bronchitis. Patient given a prescription for p.o. azithromycin 500 mg today followed by 250 mg daily x4 days. She was also given p.o. prednisone 40 mg daily x5 days. COVID/flu/RSV testing was offered but patient declined. I recommended symptomatic management including rest, increased fluids, advil/tylenol for pain/fever, and over the counter throat lozenges/decongestants. Patient advised to follow up here or go to the emergency room for worsening/persistent symptoms. Patient verbalized understanding and is agreeable with the plan. Medications: New azithromycin For 250 mg dose pack: take 500 mg today (day 1), then 250 mg for 4 days (days 2-5) PO 6 tabs 0RF prednisone 40 mg (2 x 20 mg) PO DAILY 10 tabs 0RF Coding Level of Care Code Est Pt Level 3 (90673) Diagnoses Acute bronchitis, unspecified organism J20.9 Bronchitis organism: unspecified organism Acute rhinosinusitis J01.90
== END 2024-09-08 08:32 | disposition home or self-care (01) ==
PROVIDERS: PCP Internal Medicine; Visit Provider Physician Assistant Medical
DX: J20.9 Acute bronchitis, unspecified (principal); J01.90 Acute sinusitis, unspecified

== ENCOUNTER → 2024-09-08 08:02 | Outpatient (BNVA) | payer OTHER, SELFPAY | PROVIDERS: PCP Internal Medicine ==

== ENCOUNTER 2024-11-21 14:24 | Outpatient (AMB) | payer OTHER, SELFPAY ==
[2024-11-21 14:28] VITALS: BP 138/72; PULSE 87; O2SAT 95; BMI 41.2
--- NOTE | 2024-11-21 14:28 | MHC.PC.OV ---
Vital Signs 11/21/24 14:28 Height 5 ft 1 in Weight 218 lb BMI 41.2 BP 138/72 Blood Pressure Location Lt brachial Position Sitting Pulse 87 Pulse Source Pulse Oximeter Pulse Oximetry (%) 95 Oxygen Delivery Method Room Air Intake Visit Reasons: smoking , TRAMAINE Allergies No Known Allergies [No Known Allergies*] Allergy (Verified 11/21/24 14:29) Medication List - Last Reconciled 11/21/24 by Aldo Liang MD albuterol sulfate 90 mcg/actuation 2 puffs inhalation Q4-6H PRN bupropion HCl SR (Wellbutrin SR) 150 mg PO BID cholecalciferol (vitamin D3) 62.5 mcg PO DAILY fexofenadine (Tiffanie Allergy) 60 mg PO Q12H ibuprofen 600 mg PO Q6H PRN magnesium oxide 400 mg PO DAILY melatonin-pyridoxal phos (B6) 2.5 mg- 338 mcg 1 tab sublingual BEDTIME MDD 1 tablet Tobacco use date assessed: 08/23/24 Dental Screening Dental Screen Date: 08/23/24 [facility] Medical History (Updated 11/02/24 @ 10:05 by Eduarda Knox PA-C) Idiopathic small fiber sensory neuropathy Nicotine dependence, cigarettes, uncomplicated Obesity, Class III, BMI 40-49.9 (morbid obesity) TRAMAINE (obstructive sleep apnea) Degenerative disc disease at L5-S1 level Closed fracture of right distal fibula Diverticulitis Clostridium difficile diarrhea Tinnitus Vitamin D deficiency Postmenopausal Surgical History History of hand surgery History of colonoscopy Family History Mother Breast cancer Asthma Arthritis Father No problems noted. Maternal Aunt Colon cancer Brother Schizophrenia Other Mental health disorder Social History (Updated 08/23/24 @ 13:05 by Aldo Liang MD) Household Members: Family Housing: House Are you a primary medicare sales representative to a significant other at home: No Do you presently have visiting nurse or other home services: No Alcohol intake: current Alcohol intake frequency: a few times a week Alcohol type: beer and wine Comment: once a week 4 drinks Patient Tobacco Use Status: Current everyday Tobacco user Tobacco use type: Cigarette Cigarette Packs Per Day: 0.5 Cigarettes Per Day: 10 Years Smoked: (onset 20yo, 1/2-3/4ppd x 33yrs, 20pyh), e-Cigarette/Vaping Use: Never Used Second Hand Smoke Exposure: Yes service: No Current occupational status: employed 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 1. Little interest or pleasure in doing things: not at all 2. Feeling down, depressed, or hopeless: not at all 3. Trouble falling or staying asleep, or sleeping too much: more than half the days 4. Feeling tired or having little energy: several days 5. Poor appetite or overeating: not at all 6. Feeling bad about yourself - or that you are a failure or have let yourself or your family down: not at all 7. Trouble concentrating on things, such as reading the newspaper or watching television: not at all 8. Moving or speaking so slowly that other people could have noticed. Or the opposite - being so fidgety or restless that you have been moving around a lot more than usual: not at all 9. Thoughts that you would be better off or of hurting yourself in some way: not at all Total score: 3 Depression Screening Interpretation: Positive Depression Screening Done: Yes 41121 - PHQ-9 Billing: Yes Source: Developed by Drs. Jero Tan, Renae Bedoya, Salvatore Chavis and colleagues, with an educational kassidy from [employer]. Thrive Questionnaire Date Thrive assessed: 08/23/24 I am a: Patient What is your living situation today?: I have a steady place to live Within the past 12 months, did the food you bought not last and you didn't have the money to get more?: Never true Within the past 12 months, did you worry whether your food would run out before you got money to buy more?: Never true Do you have trouble paying for medicines?: No Do you have trouble getting transportation to medical appointments?: No Do you have trouble paying your heating and electricity bill?: No Do you have trouble taking care of your child, family member or friend?: No Do you have trouble with day-to-day activities such as bathing, preparing meals, shopping, managing finances, etc.?: No Are you currently unemployed and looking for a job?: No Are you interested in more education?: No Please select the resources that you would like help with: None Currently or been in a relationship where the following occur: No concerns reported THRIVE Score: 0 ELISEO-7 AMB Questionnaire ELISEO-7 Date ELISEO - 7 assessed: 08/23/24 Source: Developed by Drs. Jero Tan, Renae Bedoya, Salvatore Chavis and colleagues, with an educational kassidy from [employer]. Physical exam (Primary Care) Vital Signs: Last Vital Signs Pulse 87 11/21/24 14:28 BP 138/72 11/21/24 14:28 Pulse Ox 95 11/21/24 14:28 Oxygen Delivery Method Room Air 11/21/24 14:28 BMI result Body Mass Index 41.2 Tobacco/Smoking Status: Tobacco use Status Tobacco use date assessed 08/23/24 11/21/24 14:30 Patient Tobacco Use Status Current everyday Tobacco 11/21/24 14:30 Tobacco use type Cigarette 11/21/24 14:30 e-Cigarette/Vaping Use Never Used 11/21/24 14:30 PHQ-9: PHQ-9 Score PHQ-9: Total score 3 11/21/24 14:41 Depression Screening Interpretation: Positive Thrive Assessment: Date of Thrive Assessment Date Thrive assessed 08/23/24 11/21/24 14:30 Currently or been in a relationship where the following occur: No concerns reported Const General: alert; No acute distress Eyes Conjunctivae: conjunctivae normal Resp Auscultation: clear to auscultation bilaterally Cardio Rate: regular rate Rhythm: regular rhythm GI Inspection: Yes normal to inspection Extrem General: Yes normal to inspection and No edema Coding Level of Care Code Est Pt Level 4 (93229) Diagnoses Obesity, Class III, BMI 40-49.9 (morbid obesity) E66.01 TRAMAINE (obstructive sleep apnea) G47.33 Nicotine dependence, cigarettes, uncomplicated F17.210 Generalized anxiety disorder F41.1 Additional Codes PHQ-9 - 19658 - PHQ-9 Billing: Yes ([id number]) Assessment & Plan Assessment & Plan (1) Obesity, Class III, BMI 40-49.9 (morbid obesity): Code(s): E66.01 - Morbid (severe) obesity due to excess calories Category: Medical Plan: Diet and exercise (2) TRAMAINE (obstructive sleep apnea): Comment: (Mild TRAMAINE with increased severity in REM sleep and sleep related hypoxemia. AHI = 12 and oxygen samir was 71% with below 88% for 50 min.) Code(s): G47.33 - Obstructive sleep apnea (adult) (pediatric) Category: Medical Plan: Discussed about losing weight to help with obstructive sleep apnea (3) Nicotine dependence, cigarettes, uncomplicated: Comment: (current smoker - onset 20yo, 1/2-3/4ppd x 33yrs - 20pyh) Code(s): F17.210 - Nicotine dependence, cigarettes, uncomplicated Category: Medical Plan: Patient is strongly advised to stop smoking discussed about lung cancer screening. (4) Generalized anxiety disorder: Code(s): F41.1 - Generalized anxiety disorder Category: Medical Plan: Continue with Wellbutrin. Plan History of Present Illness The patient is a 54-year-old female presenting with chronic disease management and health maintenance. Her medical history includes systemic lupus erythematosus, chronic obstructive sleep apnea, impaired glucose tolerance, and generalized anxiety disorder. She was treated for bronchitis in August 2024 with azithromycin and steroids. The patient also has a history of smoking, with an ongoing use of about five cigarettes per day; various cessation strategies have been discussed but are not actively in use at this time. Her anxiety is treated with bupropion, which she takes twice daily, and she does not feel the need for additional counseling support. The patient's recent blood work in May 2023 showed normal sugars and kidney function, while her cholesterol checked in March 2023 showed an LDL level of 120 mg/dL. The patient keeps her mammogram and colonoscopy screenings current. Efforts were made to address weight management and lifestyle changes to better control her obstructive sleep apnea, and she has repeatedly been advised on the importance of quitting smoking to reduce her cancer risk. Health Maintenance - Mammogram: Up to date. - Colonoscopy: Up to date. - Lipid profile in March 2023: LDL of 120 mg/dL. - Blood glucose levels checked in May 2023: Normal. - Kidney function test in May 2023: Normal. - Smoking cessation advised. - Diet and exercise for weight management and apnea control recommended. - Vaccinations mentioned: Pneumonia shot received; tetanus is current; shingles vaccine discussed as available in pharmacies. Social History - The patient reports smoking approximately five cigarettes daily. - No current exercise or nutrition regimen was specifically detailed. - The patient denies seeing a counselor, does not have an ongoing exercise, or diet plan beyond pursuing weight loss efforts discussed. Review of Systems - Respiratory: Reports a previous episode of bronchitis. - Psychological: Reports generalized anxiety; denies the need for a counselor. - Sleep: Reports obstructive sleep apnea. - Allergic/Immunologic: Reports taking fexofenadine for allergies. - Musculoskeletal: Denies use of current muscle relaxants; reports taking ibuprofen for pain as needed. - Neurological: Reports taking melatonin. Physical Exam Results - Tests: Mammogram and colonoscopy are up to date. - Labs: - March 2023 Lipid profile LDL of 120 mg/dL. - May 2023 normal glucose levels and kidney function. Plan Management includes reinforcing weight reduction strategies through diet and exercise to improve obstructive sleep apnea. Smoking cessation is heavily encouraged, with discussions on the use of bupropion and consideration of nicotine replacement therapies despite no definitive plan being chosen. Continued administration of bupropion addresses generalized anxiety disorder, with additional emphasis placed on smoking cessation as a benefactor to control anxiety symptoms. A CT scan of the chest is planned for January 06 to assess cancer risks attributed to tobacco use. Regular follow-ups for health screenings including lipid profiles and blood glucose levels are maintained for comprehensive chronic condition care. Patient was informed and verbally consented to the use of an ambient scribe for clinic note documentation during this visit. Discussion Notes I discussed with the patient the management of her systemic lupus erythematosus, sleep apnea, generalized anxiety disorder, and the significant impact of tobacco use on her health, particularly its relation to cancer risk and the persistent challenges of bronchitis. We explored nicotine replacement therapies as options to aid smoking cessation, including patches and lozenges, but the patient has yet to decide on an approach. Additionally, we reviewed the benefits of continued use of bupropion for managing anxiety. I've advised monitoring her health maintenance measures, including mammogram and colonoscopy screenings and maintaining regular blood work to assess lipid levels and glucose control. Plans were confirmed for a CT scan of the chest to help evaluate long-term lung health risks, and I outlined the necessity of these preventative measures during today?s discussion. Patient Instructions - Continue taking bupropion (Wellbutrin) twice daily for anxiety. - Attempt to reduce smoking, seeking help through patches or gum if desired. - Engage in diet and exercise to aid with weight management and sleep apnea. - Attend the CT scan appointment on January 06, 2025. - Keep vaccines up to date and discuss shingles vaccine availability at the pharmacy. - Schedule follow-up visits for regular health checks and screenings.
--- OUTSIDE RECORDS SUMMARY | 2024-11-21 15:34 | XMS_ITS | Patient Health Record ---
Author Organization [facility] Address [address] [place] [address] Care Team Providers Care Manager University Name Role Phone Aldo Liang Primary Care Provider Vidal Mckeon Unavailable [phone] Allergies No Known Allergies Reason For Referral [...] X ray : Foot, left 3V 07/23/2022 [id number], [id number], JOINT/BURSA 0 07/23/2022 Insurance Providers Payer Name Payer Address Payer Phone Subscriber Number Group Number Insured Name Patient Relationship to Insured Coverage Start Date Coverage End Date [facility] [address] [facility] [place] [address] [id number] Grecia Tyleraret Self - patient is the insured Medical (General) History Medical History History ICD Code Broken bones Numbness Chicken pox Surgical History Surgery Date(Month/Year) left and right wrist surgery unknown Hospitalization History Reason Date(Month/[place] [facility] [place] Ur[place] - [place] R fibia f racture xrays taken casted/boot saw PCP 08/06/22 07/31/22
== END 2024-11-21 15:07 | disposition home or self-care (01) ==
LOC: HO.HMCH 14:25
PROVIDERS: PCP Internal Medicine; Visit Provider Internal Medicine
DX: G47.33 Obstructive sleep apnea (adult) (pediatric) (principal); F17.210 Nicotine dependence, cigarettes, uncomplicated; E66.01 Morbid (severe) obesity due to excess calories; Z68.41 Body mass index [BMI] 40.0-44.9, adult; F41.1 Generalized anxiety disorder

== ENCOUNTER → 2024-11-21 14:24 | Outpatient (BNVA) | payer OTHER, SELFPAY | PROVIDERS: PCP Internal Medicine; Visit Provider Internal Medicine | DX: E66.01 Morbid (severe) obesity due to excess calories (principal); Z68.41 Body mass index [BMI] 40.0-44.9, adult; G47.33 Obstructive sleep apnea (adult) (pediatric); F41.1 Generalized anxiety disorder; F17.210 Nicotine dependence, cigarettes, uncomplicated | CPT/HCPCS: 96127 ==

== ENCOUNTER 2024-12-29 15:34 | Outpatient (REF) | payer OTHER, SELFPAY ==
--- NOTE | ~2024-12-29 | CT_ITS ---
CLINICAL HISTORY: F17.210 - Nicotine dependence, cigarettes, uncomplicated CT lung cancer screening (LDCT) Comparison: CT/HI/SR - CT LUNG SCREENING - 12/03/23 09:54 EDT Technique: Axial CT images of the chest using low-dose technique. Findings: No concerning pulmonary nodules. 3 mm left upper lobe pulmonary nodule on prior study is no longer evident. No pleural effusion or pneumothorax. No focal infiltrates. Thoracic aorta is nonaneurysmal. No acute bony lesions. Impression: No suspicious pulmonary nodules. Category 1: Normal. Continued annual lung cancer screening chest CT suggested. Category 1: Normal; continue annual screening Category 2: Benign appearance or behavior, continue annual screening Category 3: Probably benign, [address] recommended Category 4A: Suspicious, [address] recommended; may consider PET/CT Category 4B: Suspicious, Additional diagnostics and/or tissue sampling recommended Category 4X: Suspicious, Additional diagnostics and/or tissue sampling recommended Category 0: Recalls (incomplete screen due to Incomplete coverage, Noise, Respiratory motion, Expiration, Obscured by acute abnormality) This document has been electronically signed by: Aron Franklin MD on 01/06/2025 13:02:39
--- OUTSIDE RECORDS SUMMARY | 2024-12-29 15:37 | XMS_ITS | Patient Health Record ---
Author Organization [facility] [place] Address [address] [facility] [place] [address] Care Team Providers Care Examiner Of Currency Name Role Phone Aldo Liang Primary Care Provider Vidal Mckeon Unavailable [phone] Allergies No Known Allergies Reason For Referral [...] X ray : Foot, left 3V 07/23/2022 [id number], [id number], JOINT/BURSA 0 07/23/2022 Insurance Providers Payer Name Payer Address Payer Phone Subscriber Number Group Number Insured Name Patient Relationship to Insured Coverage Start Date Coverage End Date [facility] [address] [facility] [place] [address] [phone] [id number] Grecia Tyleraret Self - patient is the insured Medical (General) History Medical History History ICD Code Broken bones Numbness Chicken pox Surgical History Surgery Date(Month/Year) left and right wrist surgery unknown Hospitalization History Reason Date(Month/Year) [facility] [place] 10/2021 Urgent care - fell R fibia f racture xrays taken casted/boot saw PCP 08/06/22 07/31/22
== END 2024-12-29 15:35 | disposition home or self-care (01) ==
LOC: HO.CT 15:34
PROVIDERS: PCP Internal Medicine; Visit Provider Physician Assistant Medical
DX: Z12.2 Encounter for screening for malignant neoplasm of respiratory organs (principal); F17.210 Nicotine dependence, cigarettes, uncomplicated
CPT/HCPCS: 71271

== ENCOUNTER → 2024-12-29 15:38 | Outpatient (BNV) | payer OTHER, SELFPAY | PROVIDERS: PCP Internal Medicine; Visit Provider Radiology Diagnostic Radiology | DX: F17.210 Nicotine dependence, cigarettes, uncomplicated (principal) | CPT/HCPCS: 71271 ==

== ENCOUNTER 2025-02-12 15:07 | Outpatient (AMB) | payer OTHER, SELFPAY ==
--- OUTSIDE RECORDS SUMMARY | 2025-02-12 15:10 | XMS_ITS | Clinical Summary ---
Author Organization [facility] Address [address] [id number] Phone Care Team Providers Care [employer] Senior Sergeant Name Role Phone Aldo Liang MD Primary Care Provider [phone] Social History Tobacco Use Types Packs/Day Years Used Date Smoking Tobacco: Never Assessed Education Answer Date Recorded Are you interested in more education? Not on isac e 07/22/2023 Are you concerned about learning? Not on file 07/22/2023 No 07/22/2023 No 07/22/2023 Digital Access Answer Date Recorded No 07/22/2023 No 07/22/2023 Reliable internet access at home? Not on file 07/22/2023 Device with a working camera? Not on file Comments Unknown Sex and Gender Information Value Date Recorded Sex Assigned at Not on file Legal Sex Female 10:32 PM EDT Gender Identity Not on file Sexual Orientation Not on file Plan of Treatment Not on file Medical Devices Not on file Insurance [facility] Member Subscriber Plan / Payer (Ef fective 2018-Present) Name:Dee Tyler Relation to Subscriber:Self Name:Dee Tyler Payer ID:Not on file Type:O [address] Member Subscriber Plan / Payer (Ef fective 2018-Present) Name:Dee Tyler Relation to Subscriber:Self Name:Dee Tyler Payer ID:Not on file Type:HMO Address: [address] PPO [place] [address] [address] HMO [facility] PPO [facility] HMO [employer] PPO Care Teams [employer] Senior Sergeant Relationship Specialty Start Date End Date Aldo Liang MD [address] [place] [id number] PCP - General Internal Medicine 07/22/23 Additional Source Comments The information contained in this document represents components of the legal health record. It is not the complete legal health record.[facility]
--- OUTSIDE RECORDS SUMMARY | 2025-02-12 15:10 | XMS_ITS | Patient Health Record ---
Author Organization [facility] Address [address] [facility] [address] [facility] [place] [address] Care Team Providers Care Deblocker Name Role Phone Aldo Liang Primary Care Provider Vidal Mckeon Unavailable [phone] Allergies No Known Allergies Reason For Referral [...] X ray : Foot, left 3V 07/23/2022 [id number], [id number], JOINT/BURSA 0 07/23/2022 Insurance Providers Payer Name Payer Address Payer Phone Subscriber Number Group Number Insured Name Patient Relationship to Insured Coverage Start Date Coverage End Date [facility] [address] [facility] [place] [address] [phone] [id number] Grecia Tyleraret Self - patient is the insured Medical (General) History Medical History History ICD Code Broken bones Numbness Chicken pox Surgical History Surgery Date(Month/Year) left and right wrist surgery unknown Hospitalization History Reason Date(Month/Year[place] [facility] [place] Urgent care - fell R fibia f racture xrays taken casted/boot saw PCP 08/06/22 07/31/22
--- NOTE | 2025-02-12 15:23 | A.OFFVIS_ITS ---
Vital Signs 02/12/25 15:24 Height 5 ft 1 in Weight 220 lb 2 oz BMI 41.6 BP 138/80 Blood Pressure Location Lt brachial Position Sitting Pulse 84 Pulse Source Pulse Oximeter Pulse Oximetry (%) 94 Oxygen Delivery Method Room Air Intake Visit Reasons: 6 mo follow up Intake Note: Patient presents follow up Neuropathy/TRAMAINE medication. Compliance in chart( 85/90 days, >=4hrs-90%, Average usage- 6hr 34min, Pressure 14cm, Med leaks, 0.8, AHI- 1.1). Patient states Neuropathy is the same. Accompanied by: Self / Same As Patient Allergies No Known Allergies (No Known Allergies*) Allergy (Verified 02/12/25 15:27) HPI Comments Details: 54 y/o female patient presents for follow up of small fiber neuropathy( diagnosed in [address] Peña -biopsy) and sleep apnea associated with hypoxemia. The PSG sleep study result was significant for a mild degree of sleep apnea with increased severity in REM sleep. The AHI was 12/hr, oxygen samir was 74% Supplemental oxygen at 1LPM was used during the sleep study. The titration study completed December 2023, O2 stabilized on [id number] TRAMAINE Compliance Report 11/2024-02/2025 total avg use is 85/90 days, >=4hrs-90%, Avg daily use is 6hr 34min Pressure 14cm, Med leaks, 0.8, AHI-1.1. She changes her filters, cleans the mask and tubing as needed. Patient states Neuropathy is the same she has RLS with cramps at night. she was trialed on Ropinirole, Gabapenin and Topiramate as all were ineffective. Topiramate did take the edge off. Reviewed labs with patient vitamin D is insufficient, alk phos is elevated, she is taking a D3 daily. Pt states that she does not sleep well, constantly moving due to leg pain and R LS. She was diagnosed with small fiber neuropathy in 2015, confirmed by skin biopsy. She no longer snores, however is chronically fatigued. Pt reports constant bilateral feet discomfort, with burning, sharp, stabbing pain in her ankles and legs, right leg is worse than left. She has constant discomfort and pain which waxes and wanes. She has spondylolysis, tried massage and Epsom salt, both of which have not improved her symptoms of lower back pain. She has r. thigh numbness and pain, which radiates from r. hip to the l. side and down to her l. thigh. She has a chronic hx of SI joint pain, and was seeing sports medicine, had gel injections done which provided some relief. Mood is irritable today, as her boyfriend was dx with AML recently. 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 [facility] Medical History (Updated 02/13/25 @ 08:48 by Carlos Eduardo Jade PA-C) Idiopathic small fiber sensory neuropathy Nicotine dependence, cigarettes, uncomplicated Obesity, Class III, BMI 40-49.9 (morbid obesity) TRAMAINE (obstructive sleep apnea) Degenerative disc disease at L5-S1 level Closed fracture of right distal fibula Diverticulitis Clostridium difficile diarrhea Tinnitus Vitamin D deficiency Postmenopausal Surgical History History of hand surgery History of colonoscopy Family History Mother Breast cancer Asthma Arthritis Father No problems noted. Maternal Aunt Colon cancer Brother Schizophrenia Other Mental health disorder Social History Household Members: Family Housing: House Are you a primary care process manager to a significant other at home: No Do you presently have visiting nurse or other home services: No Alcohol intake: current Alcohol intake frequency: a few times a week Alcohol type: beer and wine Comment: once a week 4 drinks Patient Tobacco Use Status: Current everyday Tobacco user Tobacco use type: Cigarette Cigarette Packs Per Day: 0.5 Cigarettes Per Day: 10 Years Smoked: (onset 20yo, 1/2-3/4ppd x 33yrs, 20pyh), e-Cigarette/Vaping Use: Never Used Second Hand Smoke Exposure: Yes service: No Current occupational status: employed 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[employer] [place] Cognitive needs: No Hearing needs: No Vision needs: Yes (glasses) Physical Exam Vital Signs: Last Vital Signs Pulse 84 02/12/25 15:24 BP 138/80 02/12/25 15:24 Pulse Ox 94 02/12/25 15:24 Oxygen Delivery Method Room Air 02/12/25 15:24 BMI result Body Mass Index 41.6 Const General: cooperative Nutritional Appearance: obese Orientation/consciousness: patient oriented x3 Neck Neck: Yes full ROM and Yes supple Resp Effort & Inspection: normal respiratory effort and able to speak in complete sentences Neuro General: patient oriented x3, gait normal and moves all extremities Gait exam (Neuro): Normal gait present Motor exam (neuro): 5/5 motor strength present throughout Psych Appearance: grossly normal Mental Status: mental status grossly normal Speech and movement: Psychomotor agitation in speech present Affect: normal affect Thought content: Normal thought content present Assessment & Plan Assessment & Plan (1) TRAMAINE (obstructive sleep apnea): Comment: (Mild TRAMAINE with increased severity in REM sleep and sleep related hypoxemia. AHI = 12 and oxygen samir was 71% with below 88% for 50 min.) Code(s): G47.33 - Obstructive sleep apnea (adult) (pediatric) Category: Medical (2) Lumbar pain with radiation down both legs: Comment: sciatica PT referral Code(s): M54.50 - Low back pain, unspecified; M79.604 - Pain in right leg; M79.605 - Pain in left leg Category: Medical (3) Burning sensation of feet: Code(s): R20.8 - Other disturbances of skin sensation Category: Medical (4) Restless legs: Comment: declines meds today, says topiramate took the edge off Code(s): G25.81 - Restless legs syndrome Category: Medical (5) Lower back pain: Comment: spondylolysis referral to pain mgmt Code(s): M54.50 - Low back pain, unspecified Category: Medical Qualifiers: Back pain laterality: midline Chronicity: chronic Sciatica presence: without sciatica Qualified Code(s): M54.50 - Low back pain, unspecified; G89.29 - Other chronic pain (6) Numbness of lower extremity: Comment: Plantar fasciitis / burning of plantara surface. Code(s): R20.0 - Anesthesia of skin Category: Medical (7) Idiopathic small fiber sensory neuropathy: Code(s): G60.8 - Other hereditary and idiopathic neuropathies Category: Medical (8) Neuropathy: Comment: ( idiopathic small fiber neuropathy July 2016 Dr. Peña) Code(s): G62.9 - Polyneuropathy, unspecified Category: Medical (9) Low vitamin D level: Comment: deficient reveiwed with patient Code(s): R79.89 - Other specified abnormal findings of blood chemistry Category: Medical (10) Obesity, Class III, BMI 40-49.9 (morbid obesity): Code(s): E66.01 - Morbid (severe) obesity due to excess calories Category: Medical (11) Daytime sleepiness: Code(s): R40.0 - Somnolence Category: Medical Plan TRAMAINE continue using CPAP daily as patient has refreshing sleep. Vitamin D - Low deficient start vitamin 62.5mcg PO daily. Fatigue Magnesium 400mg PO at bedtime daily. Neuropathy: Pramipexole ER 0.375mg qhs - Not effective after 45 days, patient refused medications, trialed her on Gabapentin and Topiramate, declines lyrica pregablin today. B6 Melatonin with Pyridoxal phos 2.5mg - 338mcg, take one tablet sublingually at Bedtime Physical Therapy for sciatica declines today. Pain management corticosteroid injections for spondylolysis General Medical Practitioner referral for bilateral plantar fasciitis pain. 6month f/u for TRAMAINE Orders: Orders Magnesium 02/12/25 G47.19 - Other hypersomnia Vitamin B12 and Folate 02/12/25 G47.19 - Other hypersomnia Ferritin 02/12/25 G47.19 - Other hypersomnia Homocysteine 02/12/25 G47.19 - Other hypersomnia, G47.9 - Sleep disorder, unspecified, R53.83 - Other fatigue Methylmalonic Acid 02/12/25 G47.19 - Other hypersomnia, G47.9 - Sleep disorder, unspecified, R53.83 - Other fatigue Referrals Podiatry Referral R20.8 - Other disturbances of skin sensation Pain Management Referral M54.50 - Low back pain, unspecified, M79.604 - Pain in right leg, M79.605 - Pain in left leg Medications: New topiramate XR 50 mg PO DAILY 30 caps 1RF sleep difficulties 1 month MDD 50mg G25.81 - Restless legs syndrome, R20.8 - Other disturbances of skin sensation Refilled cholecalciferol (vitamin D3) 62.5 mcg PO DAILY 30 caps 3RF vit D deficiency R79.89 - Other specified abnormal findings of blood chemistry Patient Instructions: Sleep Hygiene provided: set a scheduled bedtime and wake time to help regulate the circadian rhythm and balance the release of pituitary hormones. Sleep in a dark room, temperatures below 68 degrees, and no devices n bed. Limit caffeinated products 6 hours prior to bed, and limit fluids 2-4 hours prior to bed. Gentle night yoga, diffusing essential oils, and playing soft music can be relaxing. Coding Level of Care Code Est Pt Level 4 (69506) Complex EM visit Add On G2211 Diagnoses TRAMAINE (obstructive sleep apnea) G47.33 Lumbar pain with radiation down both legs M54.50; M79.604; M79.605 Burning sensation of feet R20.8 Restless legs G25.81 Chronic midline low back pain without sciatica M54.50; G89.29 Back pain laterality: midline Chronicity: chronic Sciatica presence: without sciatica Numbness of lower extremity R20.0 Idiopathic small fiber sensory neuropathy G60.8 Neuropathy G62.9 Low vitamin D level R79.89 Obesity, Class III, BMI 40-49.9 (morbid obesity) E66.01 Daytime sleepiness R40.0 Time Spent (min) 40
[2025-02-12 15:24] VITALS: BP 138/80; PULSE 84; O2SAT 94; BMI 41.6
== END 2025-02-12 16:16 | disposition home or self-care (01) ==
LOC: HO.HSMS 15:08
PROVIDERS: PCP Internal Medicine; Visit Provider Physician Assistant Medical
DX: G47.33 Obstructive sleep apnea (adult) (pediatric) (principal); M54.50 Low back pain, unspecified; M79.604 Pain in right leg; M79.605 Pain in left leg; R20.8 Other disturbances of skin sensation; G25.81 Restless legs syndrome; G89.29 Other chronic pain; R20.0 Anesthesia of skin; G60.8 Other hereditary and idiopathic neuropathies; G62.9 Polyneuropathy, unspecified; R79.89 Other specified abnormal findings of blood chemistry; E66.01 Morbid (severe) obesity due to excess calories; R40.0 Somnolence
CPT/HCPCS: 99214; G2211

== ENCOUNTER 2025-03-01 06:34 | Outpatient (REF) | payer OTHER, SELFPAY ==
[2025-03-01 06:57] LABS: MANUAL DIFF FLAG NO
[2025-03-01 07:17] LABS: Hematocrit 42.0 % (37.0-47.0); Hemoglobin 14.3 g/dl (12.0-16.0); Imm Gran Abs Auto 0.01 X10*3/uL (0.00-0.03); Imm Gran Pct Auto 0.2 % (0.0-0.4); Lymphocytes Absolute Auto 2.1 X10*3/uL (1.2-4.9); Mean Corpuscular HGB Conc 34.0 g/dl (31.0-35.0); Mean Corpuscular Hemoglobin 30.7 pg (27.0-33.0); Mean Corpuscular Volume 90.1 fL (80.0-98.0); NRBC Abs Auto 0.000 X10*3/uL (0.0-0.012); NRBC Pct Auto 0.0 /100WBC (0.0-0.2); Platelet Count 276 X10*3/uL (160-400); Red Blood Count 4.66 X10*6/uL (4.20-5.50); White Blood Count 5.6 X10*3/uL (4.8-10.8)
[2025-03-01 07:59] LABS: Hemoglobin A1C 174.1663 umol/L; Total Hemoglobin (HGBA1C) 3841.6861 umol/L
[2025-03-01 08:07] LABS: Free T4 (Free Thyroxine) 0.94 ng/dL (0.71-1.85)
[2025-03-01 08:08] LABS: Alanine Aminotransferase 30 U/L (0-31); Albumin Level 4.5 g/dL (3.5-5.0); Alkaline Phosphatase 127 U/L (39-117); Anion Gap 13 (12-20); Aspartate Amino Transferase 34 U/L (5-31); Blood Urea Nitrogen 9 mg/dL (9-16); Calcium 9.2 mg/dL (8.4-10.2); Carbon Dioxide 28 mmol/L (22-29); Chloride 105 mmol/L (96-108); Cholesterol 169 mg/dL (<200); Estimated Glomerular Filt Rate > 60; Ferritin 84 ng/mL (10-250); HDL Cholesterol 36 mg/dL (>40); Magnesium 2.1 mg/dL (1.6-2.6); Potassium 4.3 mmol/L (3.3-5.1); Sodium 142 mmol/L (135-145); Thyroid Stimulating Hormone 1.97 uIU/mL (0.32-4.0); Total Protein 6.8 g/dL (6.5-8.0); Triglycerides 82 mg/dL (<150)
[2025-03-01 08:23] LABS: Folate 5.0 ng/mL (> or = 4.0); Vitamin B12 391 pg/mL (200-900)
== END 2025-03-01 06:35 | disposition home or self-care (01) ==
LOC: HO.LAB 06:34
PROVIDERS: Absent Provider Physician Assistant Medical; PCP Internal Medicine; Visit Provider Internal Medicine
DX: R73.01 Impaired fasting glucose (principal); E78.00 Pure hypercholesterolemia, unspecified; G47.19 Other hypersomnia; R53.83 Other fatigue
CPT/HCPCS: 36415; 80053; 80061; 82306; 82607; 82728; 82746; 83036; 83090; 83735; 83921; 84439; 84443; 85025

== ENCOUNTER 2025-03-06 15:13 | Outpatient (AMB) | payer OTHER, SELFPAY ==
[2025-03-06 15:23] VITALS: BP 151/68; PULSE 80; BMI 40.1
--- NOTE | 2025-03-06 15:23 | A.OFFVIS_ITS ---
Vital Signs 03/06/25 15:23 Height 5 ft 1 in Weight 212 lb 8 oz BMI 40.1 BP 151/68 H Blood Pressure Location Rt brachial Position Sitting Pulse 80 Pulse Source Pulse Oximeter Intake Visit Reasons: LOW BACK PAIN Intake Note: Pain today 11/18 Windows Application Packager Required: No Accompanied by: Self / Same As Patient Allergies No Known Allergies (No Known Allergies*) Allergy (Verified 02/12/25 15:27) HPI Comments Details: The patient is a 54-year-old female presenting with chronic low back pain. The pain is primarily located in the lower back, predominantly on the left side, and is exacerbated by movements such as bending forward or backward. The patient reports that the pain does not radiate to the buttocks but sometimes travels to the right leg, causing numbness. The patient's MRI from July showed edema of the left S1, mild spinal stenosis, bilateral neuroforaminal stenosis, moderate bulging disc at L4-L5, arthritis, and ligament hypertrophy. There is also degeneration noted at L5-S1. The patient has not received any epidural injections for spinal stenosis or disc-related pain in the past eight months, and reports her back pain was manageable during this period. She is interested to undergo interventional treatments including diagnostic lumbar medial branch blocks for potential radiofrequency ablation procedure for axial low back pain. The patient has a BMI of 40.2, which affects the eligibility for certain procedures like peripheral nerve stimulation. The patient has a history of small fiber neuropathy and nerve conduction studies were negative for peroneal neuropathy, tibial neuropathy, lumbosacral plexopathy, lumbar radiculopathy, or peripheral neuropathy. Denies any recent cough, cold, infection, fever or any significant changes in medical history since last office visit. PRIOR 07/15/23: Patient is a 52-year-old female with a past medical history of right fibular fracture in 2022 chronic low back pain, right SI joint pain, morbid obesity, polyarthralgia, peripheral neuropathy presents today for evaluation of low back pain, right leg pain and chronic bilateral foot pain. She was followed by Dr. Low previously and received right SIJ injection about 12 years ago with good relief. Reports no pain since then until she injured her right lower leg in 2022 due to a mechanical fall. Patient presents with lower back pain that radiates down to both legs and both feet with diffuse numbness and tingling without specific dermatome. This has been chronic symptoms for her. Pain affects her daily activities and functioning, mobility, sleep, social interactions and quality of life. Patient reports she wakes up in significant amount of pain ever y morning which is intensified as the day goes. Her pain has been resistant to conservative treatments. She was previously evaluated by Dr. Peña in 2016 and completed multiple EMG/NCV studies for upper and lower extremities. She states that Neurodiagnostic studies were negative. Patient eventually had a skin biopsy from her leg by Dr. Peña and was diagnosed with idiopathic small fiber neuropathy. She tried gabapentin without significant benefit. Patient was then evaluated by another Neurologist at [facility] in 2018 and was tried on Topamax without any relief. 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 Denies previous spine surgery. Patient denies any fever, abdominal or groin pain, foot drop, weakness, bladder or bowel dysfunction or saddle anesthesia. Patient is currently employed full-time as a [employer]. She consumes to regular sodas every morning and occasionally or weekly Liberal wine. She does not drink coffee. Denies any illicit or recreational substance use. Patient has been smoking half a pack/day for over 30 years. Patient is interested to reduce daily amounts of cigarettes and requests referral for lung cancer screening. Location Lower back radiates down bilateral legs to bilateral feet Duration Chronic pain for many years, progressively getting worse Characteristics of symptom or complaint Aching, sharp, tingling, numbness, pulling, tiring, heavy, radiating Aggravating or associated factors Walking, movements, prolonged standing or walking Relieving factors Heat therapy, ice roll, Tylenol, tried gabapentin and Topamax Treatment PT- no improvement, Shockwave therapy, TENS unit [facility] Medical History Idiopathic small fiber sensory neuropathy Nicotine dependence, cigarettes, uncomplicated Obesity, Class III, BMI 40-49.9 (morbid obesity) TRAMAINE (obstructive sleep apnea) Degenerative disc disease at L5-S1 level Closed fracture of right distal fibula Diverticulitis Clostridium difficile diarrhea Tinnitus Vitamin D deficiency Postmenopausal Surgical History History of hand surgery History of colonoscopy Family History Mother Breast cancer Asthma Arthritis Father No problems noted. Maternal Aunt Colon cancer Brother Schizophrenia Other Mental health disorder Social History Household Members: Family Housing: House Are you a primary manager medicare to a significant other at home: No Do you presently have visiting nurse or other home services: No Alcohol intake: current Alcohol intake frequency: a few times a week Alcohol type: beer and wine Comment: once a week 4 drinks Patient Tobacco Use Status: Current everyday Tobacco user Tobacco use type: Cigarette Cigarette Packs Per Day: 0.5 Cigarettes Per Day: 10 Years Smoked: (onset 20yo, 1/2-3/4ppd x 33yrs, 20pyh), e-Cigarette/Vaping Use: Never Used Second Hand Smoke Exposure: Yes service: No Current occupational status: employed 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 - Neurological: Reports occasional numbness in the right leg, denies numbness in toes. Denies bladder or bowel dysfunction or saddle anesthesia. All systems reviewed & are unremarkable except as noted in HPI and below Physical Exam Vital Signs: Last Vital Signs Pulse 80 03/06/25 15:23 BP 151/68 H 03/06/25 15:23 BMI result Body Mass Index 40.1 General: Appears afebrile. Alert and oriented. Mood and affect appropriate. Follows and participates in conversation appropriately. Respiratory effort is unlabored. No cough. Able to transition from sit to stand unassisted. Ambulates with bilaterally normal heel strike and toe off. General: Yes no CVA tenderness Back/Spine/Pelvis Other: Limited lumbar ROM due to pain. Lumbar extension and axial rotations reproduce moderate pain, flexion forward and bending reproduces [id number] symptoms. Demonstrates 5/5 strength of quadriceps bilaterally as well as flexion/dorsi flexion of bilateral feet against resistance. 2+ pedal pulses bilaterally. Straight leg rise with dorsiflexion negative bilaterally. +1 patellar and achilles reflexes bilaterally. Facet loading test positive bilaterally. [place]?s, [place], Pelvic compression and Stinchfield tests are positive bilaterally, right>left. No groin pain with I/E hip rotations. Valsalva maneuver negative. Back: no CVA tenderness Cervical Spine: cervical ROM normal, cervical muscular tenderness and No Cervical spine tenderness Thoracic/Lumbar Spine: thoracic and lumbar spine normal to inspection, No Thoracic/lumbar spine scar(s), Lasegue's sign negative, straight leg raise negative bilaterally, pain with thoraco-lumbar ROM, paraspinal muscle tenderness, thoraco-lumbar ROM limited, No thoracic spinal tenderness and lumbar spinal tenderness (L4-S1) Pelvis: buttock tenderness bilaterally and no sciatic notch tenderness Sacroiliac joints: bilaterally tender to palpation Extrem General: Yes capillary refill normal, Yes no clubbing, cyanosis or edema and Yes no calf tenderness Results Reviewed Results Reviewed: MR LUMBAR SPINE WITHOUT IV CONTRAST 07/24/24 History: M47.817 - Spondylosis without myelopathy or radiculopathy, lumbosacral radiculopathy Technique: Sagittal T1, T2 and STIR, and axial T1 and T2 weighted images of the lumbar spine were obtained per departmental protocol. Comparison: Correlation is made to plain films of the lumbar spine dated 10/02/2023. Findings: There is a transitional vertebra at the lumbosacral junction. The lowest intervertebral disc will be labeled S1-2. The vertebral bodies maintain normal height and alignment. There is edema of the left S1 pedicle. The intervertebral discs maintain normal height and hydration. At T12-L1,there is no evidence of disc herniation, central spinal stenosis, or neural foraminal narrowing. At L1-2, there is no evidence of disc herniation, central spinal stenosis, or neural foraminal narrowing. At L2-3, there is no evidence of disc herniation, central spinal stenosis, or neural foraminal narrowing. At L3-4, there is no evidence of disc herniation, central spinal stenosis, or neural foraminal narrowing. At L4-5, there is a moderate disc bulge. There is facet and ligamentum flavum hypertrophy causing mild central spinal stenosis and bilateral neural foraminal narrowing. At L5-S1, there is a mild disc bulge. There is facet and ligamentum flavum hypertrophy causing mild left neural foraminal narrowing. There is no central spinal or right neural foraminal stenosis. The conus terminates at the T12-L1 level and demonstrates normal signal intensity. The visualized paraspinal soft tissues are unremarkable. Impression: 1. Transitional vertebra at the lumbosacral junction. Edema of the left S1 pedicle. 2. Mild central spinal stenosis and bilateral neural foraminal narrowing at L4-5 secondary to a moderate disc bulge and facet and ligamentum flavum hypertrophy. 3. Mild left neural foraminal narrowing at L5-S1 secondary to a mild disc bulge and facet and ligamentum flavum hypertrophy. XR lumbar spine 2-3V 10/02/23 CLINICAL INFORMATION: Reason for Exam M54.50 - Low back pain, unspecified FINDINGS: 5 nonrib-bearing lumbar-type vertebral bodies. Vertebral body heights are maintained. Alignment is maintained. Mild multilevel degenerative disc disease with loss of disc space height, facet arthropathy and disc osteophyte complexes. Paravertebral soft tissues are unremarkable. IMPRESSION: Mild spondylosis of the lumbar spine, as above detailed. NE electromyogram (EMG); NE nerve conduction velocity 08/18/23 FINDINGS: All motor and sensory nerves tested showed normal latencies, amplitudes and conduction velocities. Concentric needle EMG was performed in selected muscles of the . Study revealed did not reveal signs of electric abnormalities as shown in the table below. IMPRESSION: 1. This is a normal study. 2. There is no electrodiagnostic evidence for peroneal neuropathy, tibial neuropathy, lumbosacral plexopathy, lumbar radiculopathy, or peripheral neuropa thy. CLINICAL COMMENT: Discussed that small fiber neuropathy is usually diagnosed with a nerve biopsy, and not by NCS/EMG. NCS/EMG only tests larger named peripheral nerves. Assessment & Plan Assessment & Plan (1) Lower back pain: Comment: spondylolysis referral to pain mgmt Code(s): M54.50 - Low back pain, unspecified Category: Medical Qualifiers: Chronicity: chronic Back pain laterality: midline Sciatica presence: without sciatica Qualified Code(s): M54.50 - Low back pain, unspecified; G89.29 - Other chronic pain (2) Lumbosacral spondylosis: Code(s): M47.817 - Spondylosis without myelopathy or radiculopathy, lumbosacral region Category: Medical Qualifiers: Spinal osteoarthritis complication: unspecified spinal osteoarthritis Qualified Code(s): M47.817 - Spondylosis without myelopathy or radiculopathy, lumbosacral region (3) Sacroiliac joint pain: Code(s): M53.3 - Sacrococcygeal disorders, not elsewhere classified Category: Medical (4) Lumbar pain with radiation down both legs: Comment: sciatica PT referral Code(s): M54.50 - Low back pain, unspecified; M79.604 - Pain in right leg; M79.605 - Pain in left leg Category: Medical (5) Obesity, Class III, BMI 40-49.9 (morbid obesity): Code(s): E66.01 - Morbid (severe) obesity due to excess calories Category: Medical Plan During the visit, we discussed with the patient the nature of her chronic low back pain and the multifactorial causes, including spinal stenosis, disc degeneration, and arthritis. We reviewed the MRI findings and discussed potential procedural interventions such as diagnostic nerve blocks, peripheral nerve stimulation, and radiofrequency ablation. I explained the eligibility criteria for these procedures, including the requirement for a BMI under 40 for certain treatments, and the need for a positive response to diagnostic nerve blocks. The patient was informed about the potential benefits and limitations of each procedure, and the importance of maintaining activity levels to manage symptoms. Schedule diagnostic bilateral L3-L4 DR L5 medial branch blocks with local and fluoroscopy. Expectations, risks and benefits were reviewed. Patient is aware she will be contacted to schedule this procedure. All questions and concerns have been answered and patient agreed with the treatment plan. Follow up after injections and sooner as needed. Patient was informed and verbally consented to the use of an ambient scribe for clinic note documentation during this visit. Patient Instructions: - Maintain regular physical activity and avoid prolonged rest to manage back pain. - Consider weight loss to meet eligibility criteria for certain procedures and longer term joint pain reduction. - Follow up for diagnostic nerve blocks to assess response and determine further treatment options. Coding Level of Care Code Est Pt Level 4 (53244) Complex EM visit Add On G2211 Diagnoses Chronic midline low back pain without sciatica M54.50; G89.29 Chronicity: chronic Back pain laterality: midline Sciatica presence: without sciatica Spondylosis of lumbosacral region, unspecified spinal osteoarthritis complication status M47.817 Spinal osteoarthritis complication: unspecified spinal osteoarthritis Sacroiliac joint pain M53.3 Lumbar pain with radiation down both legs M54.50; M79.604; M79.605 Obesity, Class III, BMI 40-49.9 (morbid obesity) E66.01
--- OUTSIDE RECORDS SUMMARY | 2025-03-06 16:10 | XMS_ITS | Patient Health Record ---
Author Organization [facility] [place] Address [address] [facility] [place] [address] Care Team Providers Care Wedger And Gluer Name Role Phone Aldo Liang Primary Care Provider Vidal Mckeon Unavailable [phone] Allergies No Known Allergies Reason For Referral [...] X ray : Foot, left 3V 07/23/2022 [id number], [id number]/[id number], JOINT/BURSA 0 07/23/2022 Insurance Providers Payer Name Payer Address Payer Phone Subscriber Number Group Number Insured Name Patient Relationship to Insured Coverage Start Date Coverage End Date State [employer] [address] [facility] [place] [address] [id number] Grecia Tyleraret Self - patient is [...]
--- OUTSIDE RECORDS SUMMARY | 2025-03-06 16:10 | XMS_ITS | Clinical Summary ---
Author Organization [facility] Address [address] [id number] Phone Care Team Providers Care Stock Wetter Name Role Phone Aldo Liang MD Primary Care Provider [phone] Social History Tobacco Use Types Packs/Day Years [...] file Medical Devices Not on file Insurance [facility] Member Subscriber Plan / Payer (Ef fective 2018-Present) Name:Dee Tyler Relation to Subscriber:Self Name:Dee Tyler Payer ID:Not on file Type:O [address] Member Subscriber Plan / Payer (Ef fective 2018-Present) Name:Dee Tyler Relation to Subscriber:Self Name:Dee Tyler Payer ID:Not on file Type:HMO Address: [address] PPO [place]MO [place] [address] [address] HMO [facility] PPO [facility] HMO [facility] PPO Care Teams Stock Wetter Relationship Specialty Start Date End Date Aldo Liang MD [address] [place] [phone] PCP - General Internal Medicine 07/22/23 Additional Source Comments The information contained in this document represents components of the legal health record. It is not the complete legal health record.[facility]
== END 2025-03-06 15:44 | disposition home or self-care (01) ==
LOC: HO.PMC 15:14
PROVIDERS: PCP Internal Medicine; Visit Provider Nurse Practitioner Family
DX: M54.50 Low back pain, unspecified (principal); G89.29 Other chronic pain; M47.817 Spondylosis without myelopathy or radiculopathy, lumbosacral region; M53.3 Sacrococcygeal disorders, not elsewhere classified; M79.604 Pain in right leg; M79.605 Pain in left leg; E66.01 Morbid (severe) obesity due to excess calories
CPT/HCPCS: 99214; G2211

== ENCOUNTER 2025-03-20 14:57 | Outpatient (AMB) | payer OTHER, SELFPAY ==
--- NOTE | 2025-03-20 15:06 | MHC.OFFVIS ---
Vital Signs 03/20/25 15:12 Height 5 ft 1 in Weight 210 lb BMI 39.7 Intake Visit Reasons: New Pt-planter fasciitis Intake Note: Dee is a 54 year old female who presents today as a new patient for an evaluation of bilateral plantar fasciitis pain. She mentions feeling a burning pain in the plantar aspect of the foot and this has been going on for about 20 years. Patient reports she has tried compression stocking, Orthotics, injections and shock wave therapy all of these provided temporary relief. She has been prescribed Gabapentin, Topiramate and tried OTC tylenol and ibuprofen for the pain and found little relief as well. Patient also states she has tried PT. Allergies No Known Allergies (No Known Allergies*) Allergy (Verified 03/20/25 15:12) Medication List - Last Reconciled 03/20/25 by Brittany Davis DPM albuterol sulfate 90 mcg/actuation 2 puffs inhalation Q4-6H PRN bupropion HCl SR (Wellbutrin SR) 150 mg PO BID cholecalciferol (vitamin D3) 62.5 mcg PO DAILY cholecalciferol (vitamin D3) 1 mcg PO DAILY ergocalciferol (vitamin D2) 1,250 mcg PO QWEEK 3 months MDD 1250mcg fexofenadine (Tiffanie Allergy) 60 mg PO Q12H ibuprofen 600 mg PO Q6H PRN magnesium oxide 400 mg PO DAILY mecobalamin (vitamin B12) 1,000 mcg sublingual BEDTIME 3 months MDD 1000mcg methylprednisolone (Medrol (Nils)) PO PER PKG DIR topiramate XR 50 mg PO DAILY 1 month MDD 50mg HPI Comments Details: The patient is a 54-year-old female with a past medical history as seen below presenting with chronic plantar fasciitis and associated foot and ankle pain bilateral. She reports having plantar fasciitis for several years, with persistent pain despite various treatments. The pain is described as aching and burning, primarily affecting the plantar and lateral aspects of the feet, sometimes radiating to the ankle. The patient has tried multiple interventions including Shockwave therapy, injections, gabapentin, and topiramate, with limited relief. She reports that topiramate provided some relief initially but eventually plateaued. Custom Orthotics were previously used but discontinued based on previous recommendations, although the patient felt they provided some relief. The patient engages in physical therapy (has discontinued at this time) and home exercises, including rolling her foot on ice bottles and stretching in the shower, which she finds beneficial. She has also tried a night splint, which was uncomfortable and ineffective. The patient has a history of a leg fracture in two places, which required casting and booting, and she suspects this may contribute to her current symptoms. She is physically active, walking approximately 15,000 steps daily despite the pain. She states the numbness and burning and tingling is associated with her diagnosis of small fiber neuropathy. She denies any other pedal concerns. Denies any current nausea vomiting fever or chills. [facility] Medical History (Updated 03/20/25 @ 19:53 by Brittany Davis DPM) Calcaneal spur of both feet Foot pain, bilateral Plantar fasciitis, bilateral Ankle joint stiffness, bilateral Bilateral ankle pain Idiopathic small fiber sensory neuropathy Nicotine dependence, cigarettes, uncomplicated Obesity, Class III, BMI 40-49.9 (morbid obesity) TRAMAINE (obstructive sleep apnea) Degenerative disc disease at L5-S1 level Closed fracture of right distal fibula Diverticulitis Clostridium difficile diarrhea Tinnitus Vitamin D deficiency Postmenopausal Surgical History History of hand surgery History of colonoscopy Family History Mother Breast cancer Asthma Arthritis Father No problems noted. Maternal Aunt Colon cancer Brother Schizophrenia Other Mental health disorder Social History Household Members: Family Housing: House Are you a primary neurocritical care physician to a significant other at home: No Do you presently have visiting nurse or other home services: No Alcohol intake: current Alcohol intake frequency: a few times a week Alcohol type: beer and wine Comment: once a week 4 drinks Patient Tobacco Use Status: Current everyday Tobacco user Tobacco use type: Cigarette Cigarette Packs Per Day: 0.5 Cigarettes Per Day: 10 Years Smoked: (onset 20yo, 1/2-3/4ppd x 33yrs, 20pyh), e-Cigarette/Vaping Use: Never Used Second Hand Smoke Exposure: Yes service: No Current occupational status: employed 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 Neurological: Reports small fiber neuropathy, denies any new neurological symptoms. All systems reviewed & are unremarkable except as noted in HPI and below Physical Exam Vital Signs: BMI result Body Mass Index 39.7 Extrem Other: Bilateral lower extremity focused physical exam: Derm: No open wounds lesions or abrasions noted. Minimal edema noted to bilateral lower extremities. No clinical signs of infection. Skin supple and turgor within normal limits. Vascular: DP pulses palpable/PT pulses mildly palpable. Varicosities noted. Pedal hair absent. Temperature gradient warm to warm. Neuro: Protective sensations slightly diminished. Musculoskeletal: Pain on palpation to the plantar aspects of the feet that radiate diffusely throughout the feet and into the ankles. Stiffness noted to the ankles bilaterally with pain noted with range of motion. Range of motion of the forefoot within normal limits. Slight Collapse of arch noted bilaterally. Antalgic gait noted unassisted. Results Reviewed Results Reviewed: Ordered bilateral foot and ankle three views weight-bearing x-rays to be performed prior to next visit. Assessment & Plan Assessment & Plan (1) Bilateral ankle pain: Code(s): M25.571 - Pain in right ankle and joints of right foot; M25.572 - Pain in left ankle and joints of left foot Category: Medical Qualifiers: Chronicity: chronic Qualified Code(s): M25.571 - Pain in right ankle and joints of right foot; M25.572 - Pain in left ankle and joints of left foot; G89.29 - Other chronic pain (2) Ankle joint stiffness, bilateral: Code(s): M25.671 - Stiffness of right ankle, not elsewhere classified; M25.672 - Stiffness of left ankle, not elsewhere classified Category: Medical (3) Plantar fasciitis, bilateral: Code(s): M72.2 - Plantar fascial fibromatosis Category: Medical (4) Foot pain, bilateral: Code(s): M79.671 - Pain in right foot; M79.672 - Pain in left foot Category: Medical (5) Calcaneal spur of both feet: Code(s): M77.31 - Calcaneal spur, right foot; M77.32 - Calcaneal spur, left foot Category: Medical (6) Idiopathic small fiber sensory neuropathy: Code(s): G60.8 - Other hereditary and idiopathic neuropathies Category: Medical (7) Numbness of lower extremity: Comment: Plantar fasciitis / burning of plantara surface. Code(s): R20.0 - Anesthesia of skin Category: Medical (8) Burning sensation of feet: Code(s): R20.8 - Other disturbances of skin sensation Category: Medical (9) Leg edema: Code(s): R60.0 - Localized edema Category: Medical Plan Patient was informed and verbally consented to the use of an ambient scribe for clinic note documentation during this visit. 1. Plantar Fasciitis The plan includes obtaining x-rays of both and ankles feet to assess the current status and any changes over time. A Medrol Dosepak was prescribed to address the inflammatory and pain component of the pain, with instructions to continue ice rolling and stretching exercises. Provided instructions/form for plantar fascial exercises. The patient is advised to try qist-ops-skuqscw orthotics, specifically Superfeet, before considering custom orthotics again. 2. Small Fiber Neuropathy The management of small fiber neuropathy includes monitoring symptoms and considering medication adjustments if necessary. Patient states he may be restarted on topiramate again and states she is stopping gabapentin. Patient is to return to the office in 2 weeks for re-evaluation of symptoms. If pain persists or worsens we will consider physical therapy, custom orthotics, injection, and or surgical intervention if all conservative treatment fails. Orders: Orders XR Foot Junior 3V Today M72.2 - Plantar fascial fibromatosis, M77.31 - Calcaneal spur, right foot, M77.32 - Calcaneal spur, left foot, M79.671 - Pain in right foot, M79.672 - Pain in left foot XR Ankle Junior min 3V Today M25.571 - Pain in right ankle and joints of right foot, M25.572 - Pain in left ankle and joints of left foot, M25.671 - Stiffness of right ankle, not elsewhere classified, M25.672 - Stiffness of left ankle, not elsewhere classified Medications: New methylprednisolone (Medrol (Nils)) PO PER PKG DIR 21 ea 0RF Plantar Fasciitis M72.2 - Plantar fascial fibromatosis, M79.671 - Pain in right foot, M79.672 - Pain in left foot Coding Level of Care Code New Pt Level 4 (59061) Diagnoses Chronic pain of both ankles M25.571; M25.572; G89.29 Chronicity: chronic Ankle joint stiffness, bilateral M25.671; M25.672 Plantar fasciitis, bilateral M72.2 Foot pain, bilateral M79.671; M79.672 Calcaneal spur of both feet M77.31; M77.32 Idiopathic small fiber sensory neuropathy G60.8 Numbness of lower extremity R20.0 Burning sensation of feet R20.8 Leg edema R60.0
[2025-03-20 15:12] VITALS: BMI 39.7
--- OUTSIDE RECORDS SUMMARY | 2025-03-20 17:24 | XMS_ITS | Clinical Summary ---
Author Organization [facility] Address [address] [id number] Phone Care Team Providers Care Framework Developer Name Role Phone Aldo Liang MD Primary Care Provider [phone] Social History Tobacco Use Types Packs/Day Years [...] file Medical Devices Not on file Insurance [facility] Member Subscriber Plan / Payer (Ef fective 2018-Present) Name:Dee Tyler Relation to Subscriber:Self Name:Dee Tyler Payer ID:Not on file Type:O [address] Member Subscriber Plan / Payer (Ef fective 2018-Present) Name:Dee Tyler Relation to Subscriber:Self Name:Dee Tyler Payer ID:Not on file Type:HMO Address: [address] PPO [place] [place] [address] HMO [facility] PPO [facility] HMO [facility] PPO Care Teams Framework Developer Relationship Specialty Start Date End Date Aldo Liang MD [address] [place] [phone] PCP - General Internal Medicine 07/22/23 Additional Source Comments The information contained in this document represents components of the legal health record. It is not the complete legal health record.[facility]
--- OUTSIDE RECORDS SUMMARY | 2025-03-20 17:24 | XMS_ITS | Patient Health Record ---
Author Organization [facility] [place] Address [address] [facility] [place] [address] Care Team Providers Care Carpet Jack Name Role Phone Aldo Liang Primary Care Provider Vidal Mckeon Unavailable [phone] Allergies No Known Allergies Reason For Referral [...] X ray : Foot, left 3V 07/23/2022 [id number], [id number]/[id number], JOINT/BURSA 0 07/23/2022 Insurance Providers Payer Name Payer Address Payer Phone Subscriber Number Group Number Insured Name Patient Relationship to Insured Coverage Start Date Coverage End Date [facility] [address] [facility] [place] [address] [id number] Grecia Tyleraret Self - patient is the insured Medical (General) History Medical History History ICD Code Broken bones Numbness Chicken pox Surgical History Surgery Date(Month/Year) left and right wrist surgery unknown Hospitalization History Reason Date(Month/Year) [facility]- diverticulitis 10/2021 Urgent care - fell R fibia f racture xrays taken casted/boot saw PCP 08/06/22 07/31/22
== END 2025-03-20 15:35 | disposition home or self-care (01) ==
LOC: HO.HPODS 14:58
PROVIDERS: PCP Internal Medicine; Visit Provider Student in an Organized Health Care Education/Training Program
DX: M25.571 Pain in right ankle and joints of right foot (principal); M25.572 Pain in left ankle and joints of left foot; G89.29 Other chronic pain; M25.671 Stiffness of right ankle, not elsewhere classified; M25.672 Stiffness of left ankle, not elsewhere classified; M72.2 Plantar fascial fibromatosis; M79.671 Pain in right foot; M79.672 Pain in left foot; M77.31 Calcaneal spur, right foot; M77.32 Calcaneal spur, left foot; G60.8 Other hereditary and idiopathic neuropathies; R20.0 Anesthesia of skin; R20.8 Other disturbances of skin sensation; R60.0 Localized edema
CPT/HCPCS: 99204

== ENCOUNTER 2025-04-02 15:43 | Outpatient (REF) | payer OTHER, SELFPAY ==
--- NOTE | ~2025-04-02 | XR_ITS ---
EXAMINATION: XR ANKLE, bilateral CLINICAL INFORMATION: M25.571 - Pain in right ankle and joints of right foot COMPARISON: Right ankle x-ray November 17, 2022 TECHNIQUE: AP, lateral, and mortise views lower extremity joint, ankle. FINDINGS: LEFT: Ankle mortise is congruent. There is no widening of the syndesmosis. Talar dome is intact. There are moderate Achilles and plantar fascial calcaneal enthesophyte(s). RIGHT: Ankle mortise is congruent. There is no widening of the syndesmosis. related to a healed fracture.
--- OUTSIDE RECORDS SUMMARY | 2025-04-02 17:58 | XMS_ITS ---
Clinical Summary Created on: April 02, 2025 Dee Tyler
== END 2025-04-02 15:44 | disposition home or self-care (01) ==
LOC: HO.XRAY 15:43
PROVIDERS: PCP Internal Medicine; Visit Provider Student in an Organized Health Care Education/Training Program
DX: M72.2 Plantar fascial fibromatosis (principal); M77.31 Calcaneal spur, right foot; M77.32 Calcaneal spur, left foot; M25.671 Stiffness of right ankle, not elsewhere classified; M25.672 Stiffness of left ankle, not elsewhere classified; M25.571 Pain in right ankle and joints of right foot; M25.572 Pain in left ankle and joints of left foot
CPT/HCPCS: 73610; 73630

== ENCOUNTER → 2025-04-02 15:48 | Outpatient (BNV) | payer OTHER, SELFPAY | PROVIDERS: PCP Internal Medicine; Visit Provider Radiology Diagnostic Radiology | DX: M77.31 Calcaneal spur, right foot (principal); M77.32 Calcaneal spur, left foot; M89.8X7 Other specified disorders of bone, ankle and foot | CPT/HCPCS: 73610; 73630 ==

== ENCOUNTER 2025-04-03 14:56 | Outpatient (AMB) | payer OTHER, SELFPAY ==
--- NOTE | 2025-04-03 15:04 | MHC.OFFVIS ---
Vital Signs 04/03/25 15:06 Height 5 ft 1 in Weight 210 lb BMI 39.7 Intake Visit Reasons: Follow up planter fasciitis Intake Note: Dee is a 54 year old female who presents to the office today for a 2 week follow up for bilateral Plantar Fasciitis. Pt was given a course of a methylprednisolone at previous visit. Patient reports that her plantar fasciitis has not improved since her last visit Ankle Xray IMPRESSION: Moderate calcaneal spurs, otherwise unremarkable bilateral ankles. Foot x ray IMPRESSION: Bilateral calcaneal spurs, larger on the left. Allergies No Known Allergies (No Known Allergies*) Allergy (Verified 04/03/25 15:05) HPI Comments Details: The patient is a 54-year-old female presenting for follow-up of bilateral plantar fasciitis and evaluation of previous B/L ankle fracture. The patient reports persistent pain in the foot, particularly when walking, with a pain level of 7 out of 10 today. She has been experiencing this pain since her last visit and has not found relief from the Medrol Dosepak or stretching exercises. The patient is currently taking vitamin D supplements to aid in bone healing and uses Advil for pain management. Patient denies any new inciting injuries. She denies any other pedal concerns. She denies any current nausea, vomiting, fever, or chills. [facility] Medical History (Updated 04/03/25 @ 19:12 by Brittany Davis DPM) Other enthesopathy of right foot and ankle Other enthesopathy of left foot and ankle Fracture of distal end of fibula with delayed healing Calcaneal spur of both feet Foot pain, bilateral Plantar fasciitis, bilateral Ankle joint stiffness, bilateral Bilateral ankle pain Idiopathic small fiber sensory neuropathy Nicotine dependence, cigarettes, uncomplicated Obesity, Class III, BMI 40-49.9 (morbid obesity) TRAMAINE (obstructive sleep apnea) Degenerative disc disease at L5-S1 level Closed fracture of right distal fibula Diverticulitis Clostridium difficile diarrhea Tinnitus Vitamin D deficiency Postmenopausal Surgical History History of hand surgery History of colonoscopy Family History Mother Breast cancer Asthma Arthritis Father No problems noted. Maternal Aunt Colon cancer Brother Schizophrenia Other Mental health disorder Social History Household Members: Family Housing: House Are you a primary multi care technician to a significant other at home: No Do you presently have visiting nurse or other home services: No Alcohol intake: current Alcohol intake frequency: a few times a week Alcohol type: beer and wine Comment: once a week 4 drinks Patient Tobacco Use Status: Current everyday Tobacco user Tobacco use type: Cigarette Cigarette Packs Per Day: 0.5 Cigarettes Per Day: 10 Years Smoked: (onset 20yo, 1/2-3/4ppd x 33yrs, 20pyh), e-Cigarette/Vaping Use: Never Used Second Hand Smoke Exposure: Yes service: No Current occupational status: employed 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 Denies new injuries. -Neurological: Reports small fiber neuropathy. All systems reviewed & are unremarkable except as noted in HPI and below Physical Exam Vital Signs: BMI result Body Mass Index 39.7 Extrem Other: Bilateral lower extremity focused physical exam: Derm: No open wounds lesions or abrasions noted. Minimal edema noted to bilateral lower extremities. No clinical signs of infection. Skin supple and turgor within normal limits. No ecchymosis or erythema noted. Vascular: DP pulses palpable/PT pulses mildly palpable. Varicosities noted. Pedal hair absent. Temperature gradient warm to warm. Neuro: Protective sensations slightly diminished. Musculoskeletal: Pain on palpation to the plantar aspects of the feet that radiate diffusely throughout the feet and into the ankles. Stiffness noted to the ankles bilaterally with pain noted with range of motion. Mild pain on palpation to the distal fibula in the area of the previous fracture. Range of motion of the forefoot within normal limits. Slight Collapse of arch noted bilaterally. Antalgic gait noted unassisted. Results Reviewed Results Reviewed: Podiatry read of Bilateral foot x-ray (04/02/2025): Calcaneal spurs noted plantarly and posteriorly. Mild Joint space narrowing noted to the 1st MPJs. Minimal osteophytic changes noted. Podiatry read of right ankle x-ray (04/02/2025): Healing spiral fractures noted to the distal fibula as, worse to the right. Minimal osteophytic changes noted. B/L foot x-rays (04/02/2025): FINDINGS: RIGHT FOOT: Joint spaces are preserved. No osteophytes are seen. No fractures are demonstrated. There is a bipartite medial sesamoid of the first metatarsal. Moderate calcaneal spurs are present at the plantar fascia and Achilles tendon attachments. LEFT FOOT: Joint spaces are preserved. No osteophytes are seen. No fractures are demonstrated. There is a bipartite medial sesamoid of the first metatarsal. Moderate calcaneal spurs are present at the plantar fascia and Achilles tendon attachments. IMPRESSION: Bilateral calcaneal spurs, larger on the left. B/L ankle x-ray (04/02/2025): FINDINGS: LEFT: Ankle mortise is congruent. There is no widening of the syndesmosis. Talar dome is intact. There are moderate Achilles and plantar fascial calcaneal enthesophyte(s). RIGHT: Ankle mortise is congruent. There is no widening of the syndesmosis. There is expansion of the distal diaphysis and metaphysis of the fibula related to a healed fracture. Talar dome is intact. There moderate Achilles tendon and plantar fascia calcaneal enthesophyte(s). IMPRESSION: Moderate calcaneal spurs, otherwise unremarkable bilateral ankles. Assessment & Plan Assessment & Plan (1) Bilateral ankle pain: Code(s): M25.571 - Pain in right ankle and joints of right foot; M25.572 - Pain in left ankle and joints of left foot Category: Medical Qualifiers: Chronicity: chronic Qualified Code(s): M25.571 - Pain in right ankle and joints of right foot; M25.572 - Pain in left ankle and joints of left foot; G89.29 - Other chronic pain (2) Ankle joint stiffness, bilateral: Code(s): M25.671 - Stiffness of right ankle, not elsewhere classified; M25.672 - Stiffness of left ankle, not elsewhere classified Category: Medical (3) Plantar fasciitis, bilateral: Code(s): M72.2 - Plantar fascial fibromatosis Category: Medical (4) Foot pain, bilateral: Code(s): M79.671 - Pain in right foot; M79.672 - Pain in left foot Category: Medical (5) Calcaneal spur of both feet: Code(s): M77.31 - Calcaneal spur, right foot; M77.32 - Calcaneal spur, left foot Category: Medical (6) Idiopathic small fiber sensory neuropathy: Code(s): G60.8 - Other hereditary and idiopathic neuropathies Category: Medical (7) Numbness of lower extremity: Comment: Plantar fasciitis / burning of plantara surface. Code(s): R20.0 - Anesthesia of skin Category: Medical (8) Burning sensation of feet: Code(s): R20.8 - Other disturbances of skin sensation Category: Medical (9) Leg edema: Code(s): R60.0 - Localized edema Category: Medical (10) Fracture of distal end of fibula with delayed healing: Code(s): S82.839G - Other fracture of upper and lower end of unspecified fibula, subsequent encounter for closed fracture with delayed healing Category: Medical Qualifiers: Fracture type: closed (11) Other enthesopathy of left foot and ankle: Code(s): M77.52 - Other enthesopathy of left foot and ankle Category: Medical (12) Other enthesopathy of right foot and ankle: Code(s): M77.51 - Other enthesopathy of right foot and ankle Category: Medical Plan Patient was informed and verbally consented to the use of an ambient scribe for clinic note documentation during this visit. I discussed with the patient the presence of bone spurs and the delayed healing of the ankle fractures B/L. We reviewed the potential benefits of continuing vitamin D supplementation and using night splints to manage plantar fasciitis. I explained the option of cortisone injections and physical therapy if pain persists, and the possibility of surgical intervention if conservative measures fail. We also discussed the use of Advil for pain management, with meloxicam as an alternative if needed. 1. B/L Plantar Fasciitis: - Use night splints and continue exercises to manage plantar fasciitis. (Provided patient with night splints) - Advised continued use of Advil for pain management, with the option to switch to meloxicam if needed. - Continue with plantar fascial exercises. - Obtain OTC orthotics, specifically Superfeet. 2. Delayed healing of B/L distal fibular fractures: - Continue vitamin D supplementation to support bone healing. - Continue serial imaging will be necessary to monitor the fracture's healing progress. 3. Small Fiber Neuropathy - Continue to montior symptoms and continue medications as directed. Patient is to return to the office in 2 weeks for re-evaluation of symptoms. If pain persists or worsens we will consider physical therapy and/or injections, and/or surgical intervention if all conservative treatment fails. Coding Level of Care Code Est Pt Level 4 (42090) Diagnoses Chronic pain of both ankles M25.571; M25.572; G89.29 Chronicity: chronic Ankle joint stiffness, bilateral M25.671; M25.672 Plantar fasciitis, bilateral M72.2 Foot pain, bilateral M79.671; M79.672 Calcaneal spur of both feet M77.31; M77.32 Idiopathic small fiber sensory neuropathy G60.8 Numbness of lower extremity R20.0 Burning sensation of feet R20.8 Leg edema R60.0 Fracture of distal end of fibula with delayed healing S82.839G Fracture type: closed Other enthesopathy of left foot and ankle M77.52 Other enthesopathy of right foot and ankle M77.51 Time Spent (min) 50
[2025-04-03 15:06] VITALS: BMI 39.7
--- OUTSIDE RECORDS SUMMARY | 2025-04-03 18:00 | XMS_ITS | Clinical Summary ---
Author Organization [facility] Address [address] [id number] Phone Care Team Providers Care Judicial Registrar Name Role Phone Aldo Liang MD Primary Care Provider [phone] Social History Tobacco Use Types Packs/Day Years [...] file Medical Devices Not on file Insurance [facility] Member Subscriber Plan / Payer (Ef fective 2018-Present) Name:Dee Tyler Relation to Subscriber:Self Name:Dee Tyler Payer ID:Not on file Type:O [address] Member Subscriber Plan / Payer (Ef fective 2018-Present) Name:Dee Tyler Relation to Subscriber:Self Name:Dee Tyler Payer ID:Not on file Type:HMO Address: [address] PPO [place] [address] [address] HMO [facility] PPO [facility] H[facility] PPO Care Teams Judicial Registrar Relationship Specialty Start Date End Date Aldo Liang MD [address] [place] [id number] PCP - General Internal Medicine 07/22/23 Additional Source Comments The information contained in this document represents components of the legal health record. It is not the complete legal health record.[facility]
--- OUTSIDE RECORDS SUMMARY | 2025-04-03 18:00 | XMS_ITS | Patient Health Record ---
Author Organization [facility] Address [address] [facility] [place] [address] Care Team Providers Care Carpenter Labor Supervisor Name Role Phone Aldo Liang Primary Care Provider Vidal Mckeon Unavailable [phone] Allergies No Known Allergies Reason For Referral [...] X ray : Foot, left 3V 07/23/2022 [id number], [id number], JOINT/BURSA 0 07/23/2022 Insurance Providers Payer Name Payer Address Payer Phone Subscriber Number Group Number Insured Name Patient Relationship to Insured Coverage Start Date Coverage End Date [facility] [address] [facility] [place] [address] [phone] [id number] Grecia Tyleraret Self - patient is the insured Medical (General) History Medical History History ICD Code Broken bones Numbness Chicken pox Surgical History Surgery Date(Month/Year) left and right wrist surgery unknown Hospitalization History Reason Date(Month/Year) [facility] [place] diverticulitis 10/2021 Urgent care - fell R fibia f racture xrays taken casted/boot saw PCP 08/06/22 07/31/22
== END 2025-04-03 15:33 | disposition home or self-care (01) ==
LOC: HO.HPODS 14:57
PROVIDERS: PCP Internal Medicine; Visit Provider Student in an Organized Health Care Education/Training Program
DX: M25.571 Pain in right ankle and joints of right foot (principal); M25.572 Pain in left ankle and joints of left foot; G89.29 Other chronic pain; M25.671 Stiffness of right ankle, not elsewhere classified; M25.672 Stiffness of left ankle, not elsewhere classified; M72.2 Plantar fascial fibromatosis; M79.671 Pain in right foot; M79.672 Pain in left foot; M77.31 Calcaneal spur, right foot; M77.32 Calcaneal spur, left foot; G60.8 Other hereditary and idiopathic neuropathies; R20.0 Anesthesia of skin; R20.8 Other disturbances of skin sensation; S82.83 Other fracture of upper and lower end of fibula; M77.52 Other enthesopathy of left foot and ankle; M77.51 Other enthesopathy of right foot and ankle; R60.0 Localized edema
CPT/HCPCS: 99215

== ENCOUNTER 2025-05-30 14:37 | Outpatient (REF) | payer OTHER, SELFPAY ==
--- OUTSIDE RECORDS SUMMARY | 2025-05-31 03:04 | XMS_ITS | Patient Health Record ---
Author Organization [facility] Address [address] [facility] [address] [facility] [place] [address] Care Team Providers Care Optical Effects Camera Operator Name Role Phone Aldo Liang Primary Care Provider Vidal Mckeon Unavailable [phone] Allergies No Known Allergies Reason For Referral [...] X ray : Foot, left 3V 07/23/2022 [id number], [id number]/[id number], JOINT/BURSA 0 07/23/2022 Insurance Providers Payer Name Payer Address Payer Phone Subscriber Number Group Number Insured Name Patient Relationship to Insured Coverage Start Date Coverage End Date [facility] [address] [facility] [place] [address] [id number] Grecia Tyleraret Self - patient is the insured Medical (General) History Medical History History ICD Code Broken bones Numbness Chicken pox Surgical History Surgery Date(Month/Year) left and right wrist surgery unknown Hospitalization History Reason Date(Month/Year) [facility] [place]/2021 Urgent care - fell R fibia f racture xrays taken casted/boot saw PCP 08/06/22 07/31/22
--- OUTSIDE RECORDS SUMMARY | 2025-05-31 03:04 | XMS_ITS | Clinical Summary ---
Author Organization [facility] Address [address] [id number] Phone Care Team Providers Care Job Estimator Name Role Phone Aldo Liang MD Primary Care Provider [phone] Social History Tobacco Use Types Packs/Day Years [...] Devices Not on file [facility] Address[address] Member Subscriber Plan / Payer (Ef fective 2018-Present) Name:Dee Tyler Relation to Subscriber:Self Name:Dee Tyler Payer ID:Not on file Type:O Address[address] [facility] Address: [address] [address] [facility] UNITED PPO [facility] H[facility] [place] PPO Care Teams Job Estimator Relationship Specialty Start Date End Date Aldo Liang MD [address] [place] [phone] PCP - General Internal Medicine 07/22/23 Additional Source Comments The information contained in this document represents components of the legal health record. It is not the complete legal health record.[facility]
== END 2025-05-30 14:38 | disposition home or self-care (01) ==
LOC: HO.MAMMO 14:37
PROVIDERS: PCP Internal Medicine; Visit Provider Internal Medicine
DX: Z12.31 Encounter for screening mammogram for malignant neoplasm of breast (principal)
CPT/HCPCS: 77063; 77067

== ENCOUNTER → 2025-05-30 14:45 | Outpatient (BNV) | payer OTHER, SELFPAY | PROVIDERS: PCP Internal Medicine; Visit Provider Radiology Body Imaging | DX: Z12.31 Encounter for screening mammogram for malignant neoplasm of breast (principal) | CPT/HCPCS: 77063; 77067 ==